=== PATIENT | female | born 1935 ===

== ENCOUNTER 2025-09-07 09:57 | Inpatient (IN) ==
--- NOTE | 2025-09-07 11:31 | Emergency Department Note ---
Impression & Plan Intractable low back pain, Hypertension, Lumbar spinal stenosis ED Provider Note NAME: DEIRDRE KNAPP AGE: 89 SEX: F : 1935 ARRIVES VIA: Ambulance INFORMANT: Patient ED PROVIDER(S): Chris Montez MD CHIEF COMPLAINT: Back pain PLAN: Disposition: Admit MEDICAL DECISION MAKING: The patient is a 89-year-old woman with a past medical history of hypertension, hyperlipidemia, diabetes, chronic back pain who presents to the emergency department via EMS accompanied by family for intractable left low back pain for which she has been following with her primary care provider and has been treated with a course of steroids which she is currently tapering but felt flare of pain over the past several days. She reports pain has been ongoing for weeks to a couple of months. She denies urinary retention or loss of bowel control. She reports she is a scheduled MRI of her back in September but due to worsening symptoms feels she cannot wait any longer. She denies fevers, chills, cough congestion, chest pain or shortness of breath. On my evaluation the patient is uncomfortable but in no acute distress, afebrile blood pressure in the 200s/90s in setting of not having taken her medications and her discomfort and vital signs otherwise stable. She appears clinically dry. She is mild lower abdominal discomfort without discrete tenderness. She has tenderness of the left paraspinal lumbar region extending distally over the PSIS. She exhibits a positive left leg straight leg raise. Reflexes within normal limits. There is no clonus. L5 intact bilaterally. EKG without overt acute ischemia. CXR negative for acute cardiopulmonary process per my personal preliminary review/interpretation. WBC, hemoglobin and platelets within normal limits. Chemistry without metabolic acidosis. Creatinine 1.6 without prior for comparison however BUN/creatinine 23 consistent with patient's clinically dry appearance. LFTs unremarkable. High- sensitivity troponin 11.9, within normal limits. Lipase is normal. UA without evidence of infection. CT of the abdomen pelvis as well as the lumbar spine were completed and demonstrates suspected left posterior lateral disc extrusion at L4-L5 which likely caused significant central canal stenosis. Additional incidental findings are noted including a 1.9 cm indeterminant enhancing lesion of the left kidney and asymmetric soft tissue density within the right breast compared to the left. Upon evaluation patient reported some initial improvement with IV Federation, IV APAP and dexamethasone. However, she reported pain was returning and felt that she could not tolerate ambulating and the patient and family agree with plan for admission for further pain control for her intractable back pain as well as MRI for further characterization of CT findings. IV morphine was ordered. [facility] for [facility]. Further management per admitting team. Triage Nursing notes reviewed and agree them. Prior/external medical records reviewed Vital Signs: reviewed Differential diagnosis: Musculoskeletal, disc herniation, fracture, metastatic disease, cord compression, discitis, sciatica, cauda equina, infection, aortic disease, renal colic, gastrointestinal, as well as other pathologies. ER treatment provided: See below. Diagnostics interpreted by me: ECG: Sinus rhythm with first-degree block, 75 bpm, LVH, no overt ST ovation or depression, QTc 422, QRS 96. Sinus rhythm, 75 bpm, no ectopy. Cardiac Monitoring: An order for continuous cardiac monitoring was placed and demonstrated Laboratory studies: See below Imaging studies: See below Consultation(s): Case was discussed with Dr. Whitt[facility], who will evaluate the patient for admission. HPI: Per MDM. ROS: See above HPI for pertinent positives & negatives. A total of 10 systems reviewed and were otherwise negative. VITALS:See Below PHYSICAL EXAMINATION: GENERAL: Awake, alert, well-appearing, in no distress, BMI 32.2. HENT: Normocephalic, atraumatic. Oropharynx with dry mucous membranes and otherwise unremarkable. EYES: Normal conjunctiva. Sclera non-icteric. NECK: Supple. No nuchal rigidity. FROM. No JVD. RESPIRATORY: Clear to auscultation. CARDIAC: Regular rate, normal rhythm. Extremities warm and well perfused. Pulses equal. ABDOMEN: Soft, non-distended. No tenderness to palpation. No rebound or guarding. No masses. MUSCULOSKELETAL: Chest examination reveals no tenderness. The back is symmetrical on inspection without obvious abnormality. There is no CVA tenderness to palpation. No joint edema. LOWER EXTREMITIES: Calves are equal size bilaterally and non-tender. No edema. No discoloration. NEURO: Normal sensorium. No sensory or motor deficits noted. SKIN: No rash or jaundice noted. Chris Montez MD Past Med/Surg History Problem List (Updated 09/07/25 @ 15:38 by Chris Montez MD) Lumbar spinal stenosis (Acute) Hypertension (Acute) Intractable low back pain (Acute) Dyslipidemia Gout Anxiety Neuropathy Diabetes mellitus Hypertension Medical History Family history of cancer Family history of diabetes mellitus Surgical History History of heart artery stent History of shoulder surgery History of carpal tunnel release History of cataract surgery Social History Smoking Status: Former smoker Feels Safe at Home: Yes Allergies Allergies Allergy/AdvReac Type Severity Reaction Status Date / Time baclofen Allergy Unknown ON Verified 09/07/25 15:12 [email or web address] MED LIST buspirone [From BuSpar] AdvReac Intermediate "DIDN'T Verified 09/07/25 15:12 FEEL WELL ON IT". fluoxetine [From Prozac] AdvReac Intermediate "DIDN'T Verified 09/07/25 15:12 FEEL WELL ON IT". metformin AdvReac Intermediate ELEVATED Verified 09/07/25 15:12 RENAL FUNCTIONS Sulfa (Sulfonamide AdvReac Mild NAUSEA/OVER Verified 09/07/25 15:12 Antibiotics) 40 YEARS AGO. Home Meds Home Medications Medication Instructions Recorded Confirmed amlodipine 2.5 mg tablet 2.5 mg PO DAILY 09/07/21 10/06/21 aspirin 81 mg tablet,delayed 81 mg PO DAILY 09/07/21 10/06/21 release atenolol 100 mg tablet 100 mg PO DAILY 09/07/21 10/06/21 cholecalciferol (vitamin D3) 25 25 mcg PO DAILY 09/07/21 10/06/21 mcg (1,000 unit) capsule citalopram 20 mg tablet (Celexa) 20 mg PO DAILY 09/07/21 10/06/21 gabapentin 300 mg capsule 300 mg PO TID 09/07/21 10/06/21 losartan 100 mg tablet 100 mg PO DAILY 09/07/21 10/06/21 omega-3 fatty acids 1,000 mg 1,000 mg PO DAILY 09/07/21 10/06/21 capsule (Fish Oil Concentrate) rosuvastatin 20 mg tablet 20 mg PO DAILY 09/07/21 10/06/21 allopurinol 300 mg tablet 200 mg PO DAILY 10/06/21 10/06/21 glipizide 10 mg tablet 5 mg PO DAILY 10/06/21 10/06/21 semaglutide 0.25 mg or 0.5 mg (2 mg subcut ONCE 10/06/21 10/06/21 mg/1.5 mL) subcutaneous pen injector (Ozempic) Previous Rx's Medication Instructions Recorded fluorouracil 5 % topical cream 1 applic topical BID 3 weeks #40 10/06/21 grams Results & Data (ED) Vital Signs Vital Signs - 24 hr 09/07/25 10:03 09/07/25 10:16 09/07/25 11:00 Temperature 36.5 C Temperature Source Oral Pulse Rate 102 H 85 80 Pulse Rate from SpO2 Sensor Respiratory Rate 16 20 Respiratory Effort / Characteristics Non-Labored Spontaneous Respiratory Depth Normal Respiratory Pattern Regular Blood Pressure 193/91 H 195/91 H Blood Pressure Mean 125 149 Pulse Oximetry 97 98 Oxygen Delivery Method Room Air Room Air Sepsis Recent Fever Within 48 Hours No Sepsis New/Unexplained Change in Mental Status No Sepsis Action Taken by Nursing No Action Required 09/07/25 11:00 09/07/25 11:12 09/07/25 11:30 Temperature Temperature Source Pulse Rate 81 81 82 Pulse Rate from SpO2 Sensor 80 Respiratory Rate 17 15 21 Respiratory Effort / Characteristics Respiratory Depth Respiratory Pattern Blood Pressure 195/91 H 166/119 H Blood Pressure Mean 125 134 Pulse Oximetry 96 96 96 Oxygen Delivery Method Room Air Room Air Sepsis Recent Fever Within 48 Hours Sepsis New/Unexplained Change in Mental Status Sepsis Action Taken by Nursing 09/07/25 12:00 09/07/25 12:30 09/07/25 12:51 Temperature Temperature Source Pulse Rate 74 78 78 Pulse Rate from SpO2 Sensor 74 78 78 Respiratory Rate 13 19 18 Respiratory Effort / Characteristics Respiratory Depth Respiratory Pattern Blood Pressure 180/84 H 179/107 H 202/88 H Blood Pressure Mean 116 131 126 Pulse Oximetry 93 94 93 Oxygen Delivery Method Room Air Room Air Room Air Sepsis Recent Fever Within 48 Hours Sepsis New/Unexplained Change in Mental Status Sepsis Action Taken by Nursing 09/07/25 12:54 09/07/25 13:00 09/07/25 13:09 Temperature Temperature Source Pulse Rate 82 80 79 Pulse Rate from SpO2 Sensor 82 79 80 Respiratory Rate 20 23 17 Respiratory Effort / Characteristics Respiratory Depth Respiratory Pattern Blood Pressure 205/87 H 201/87 H 204/90 H Blood Pressure Mean 126 125 128 Pulse Oximetry 97 94 95 Oxygen Delivery Method Room Air Room Air Room Air Sepsis Recent Fever Within 48 Hours Sepsis New/Unexplained Change in Mental Status Sepsis Action Taken by Nursing 09/07/25 14:39 Temperature Temperature Source Pulse Rate 83 Pulse Rate from SpO2 Sensor Respiratory Rate Respiratory Effort / Characteristics Respiratory Depth Respiratory Pattern Blood Pressure Blood Pressure Mean Pulse Oximetry Oxygen Delivery Method Sepsis Recent Fever Within 48 Hours Sepsis New/Unexplained Change in Mental Status Sepsis Action Taken by Nursing Laboratory Data Attestation: I reviewed the patient's lab results. 09/07/25 10:09 09/07/25 10:09 Lab Results 09/07/25 09/07/25 Range/Units 10:09 13:27 WBC 8.52 (4.8-10.8) K/ul RBC 3.77 L (4.20-5.40) M/uL Hgb 12.0 (12.0-16.0) g/dL Hct 36.1 L (37.0-47.0) % MCV 95.8 (80.0-100.0) fL MCH 31.8 (25.0-34.0) pg MCHC 33.2 (32.0-36.0) g/dL RDW Std Deviation 47.9 H (36.4-46.3) fL RDW Coeff of Adrianne 13.6 (11.5-14.5) % Plt Count 236 (130-400) K/uL MPV 10.2 (9.4-12.4) fL Immature Gran % (Auto) 0.2 % Neut % (Auto) 57.9 % Lymph % (Auto) 33.9 % [place] % (Auto) 5.9 % Eos % (Auto) 1.9 % Baso % (Auto) 0.2 % Neut # (Auto) 4.93 (1.40-6.50) K/uL Lymph # (Auto) 2.89 (1.20-3.40) K/uL [place] # (Auto) 0.50 (0.11-0.59) K/uL Eos # (Auto) 0.16 (0.00-0.50) K/uL Baso # (Auto) 0.02 (0.00-0.20) K/uL Immature Gran # (Auto) 0.02 (0.01-0.20) K/uL PT 9.8 (9.0-12.0) Seconds INR 0.9 (0.9-1.1) Sodium 139 (136-145) mmol/L Potassium 4.0 (3.5-5.1) mmol/L Chloride 102 (98-107) mmol/L Carbon Dioxide 29 (21-32) mmol/L Anion Gap 8 (3-11) BUN 38 H (6-23) mg/dl Creatinine 1.64 H (0.6-1.2) mg/dl Est Cr Clr Drug Dosing 24.5 ml/min eGFR 29.74 BUN/Creatinine Ratio 23.2 H (10-20) Glucose 133 H (70-99(Fasting)) mg/dl Calcium 9.5 (8.6-10.3) mg/dl Phosphorus 3.4 (2.5-4.9) mg/dl Magnesium 2.2 (1.7-2.4) mg/dl Total Bilirubin 0.4 (0.2-1.0) mg/dl AST 17 (13-39) U/L ALT 11 (7-52) U/L Alkaline Phosphatase 63 (34-104) U/L Troponin I High Sens 11.9 (0-14) pg/ml Total Protein 6.9 (6.0-8.3) gm/dl Albumin 4.1 (3.4-5.0) gm/dl Globulin 2.8 (2.5-4.0) gm/dl Albumin/Globulin Ratio 1.5 (0.9-2) Lipase 74 (11-82) U/L Urine Color Yellow Urine Appearance Clear (Clear) Urine pH 7.5 (4.5-7.5) Ur Specific [place] 1.021 (1.000-1.030) Urine Protein 2+ H (Negative) Urine Glucose (UA) Negative (Negative) Urine Ketones Negative (Negative) Urine Blood Negative (Negative) Urine Nitrite Negative (Negative) Urine Bilirubin Negative (Negative) Urine Urobilinogen Negative (Negative) Ur Leukocyte Esterase Negative (Negative) Urine WBC (Auto) 0-5 (0-5) /hpf Urine RBC (Auto) 0-2 (0-2) /hpf U Hyaline Cast (Auto) 0-2 (0-2) /lpf U Epithel Cells (Auto) 0-2 (0-2) /hpf Urine Bacteria (Auto) None Seen (None Seen) Urine Comment Administered Medications Discontinued Medications Dexamethasone Sodium Phosphate (DexamethasonePf 10 Mg/Ml Vial) 10 mg IV NOW ONE Stop: 09/07/25 11:22 Last Admin: 09/07/25 11:37 Dose: 10 mg Documented By: MICHELLE Sodium Chloride (Nss) 500 mls @ 999 mls/hr IV .Q31M ONE Stop: 09/07/25 11:51 Last Infusion: 09/07/25 13:42 Dose: Infused Documented By: Admin: 09/07/25 11:59 Dose: 999 mls/hr Documented By: MICHELLE Acetaminophen (Ofirmev) 1,000 mg in 100 mls @ 400 mls/hr IV NOW STA Stop: 09/07/25 11:35 Last Infusion: 09/07/25 12:01 Dose: Infused Documented By: Admin: 09/07/25 11:37 Dose: 400 mls/hr Documented By: MICHELLE Ioversol (Optiray 320 100ml) 94 ml IV ONCE ONE Stop: 09/07/25 12:44 Last Admin: 09/07/25 12:43 Dose: 94 ml Documented By: ANNIE Ketorolac Tromethamine (Ketorolac Tromethamine 15 Mg/Ml Vial) 15 mg IV NOW STA Stop: 09/07/25 11:22 Last Admin: 09/07/25 11:37 Dose: 15 mg Documented By: MICHELLE Morphine Sulfate (Morphine Sulfate 2 Mg/Ml Carp) 2 mg IV NOW STA Stop: 09/07/25 15:07 Last Admin: 09/07/25 15:20 Dose: 2 mg Documented By: MICHELLE Imaging Data Radiologist's Impression: Abdomen/Pelvis CT 09/07/25 11:19 CT SCAN OF THE ABDOMEN AND PELVIS WITH IV CONTRAST; CT SCAN OF THE LUMBAR SPINE WITH IV CONTRAST CLINICAL HISTORY: Generalized abdominal pain. Low back pain. COMPARISON STUDY: No priors TECHNIQUE: Following the IV administration of 94 cc of Optiray 320, CT scan of the abdomen and pelvis is performed from the lung bases to the proximal femora. Additionally, CT scan of the lumbar spine is performed from the lower thoracic spine to sacrum. Images for both examinations are reviewed in the axial, sagittal, and coronal planes. IV contrast was administered without complication. A dose lowering technique was utilized adhering to the principles of ALARA. CT DOSE: 1205.13 mGy.cm FINDINGS: Lung bases: The heart is normal in size and without pericardial effusion. There is bibasilar scarring/atelectasis. No airspace consolidation typical for pneumonia or pleural effusion is identified. A small hiatal hernia is noted. There is severe asymmetric soft tissue density within the right breast as compared to the left. Liver: The contrast-enhanced liver is normal in size, contour, and attenuation. There is no intrahepatic biliary ductal dilatation. The hepatic veins and portal veins are patent. Gallbladder: Small gallstones are suspected. The gallbladder is distended but otherwise normal as imaged. Spleen: Normal in size and attenuation. Pancreas: Unremarkable. Adrenal glands: Unremarkable. Kidneys: The contrast enhanced kidneys are normal in size and without hydronephrosis. The kidneys enhance symmetrically. There is a 1.9 cm indeterminant and possibly enhancing lesion is seen in the lower pole of left kidney on image #129. Scattered renal cysts measure up to 2.4 cm. Additional subcentimeter cortical hypodensities also likely represent cysts but are too small for definitive characterization. Abdominal vasculature: There is moderate to advanced atherosclerotic calcification and mild ectasia of the abdominal aorta. Bowel: There is advanced colonic diverticulosis without CT evidence of acute diverticulitis. No bowel obstruction is seen. Zeiu-sy-vjhxafih fecal retention is noted throughout the colon. A segment of small bowel is contained within an umbilical hernia. The appendix is normal as visualized. Peritoneum: There is no intraperitoneal free air or abdominal ascites. There is a fat and bowel containing umbilical hernia. There is also a fat-containing supraumbilical hernia seen on image #179. Lymphadenopathy: None. Pelvic viscera: The bladder is normal as visualized. The uterus is surgically absent. No adnexal lesion is seen. Skeletal structures: The skeletal structures are osteopenic. See below for discussion of lumbar spine. No lytic or blastic lesions are seen. Degenerative sclerosis is seen within the sacroiliac joints and pubic symphysis. LUMBAR SPINE: Vertebral body height is maintained throughout the lumbar spine. There is minimal anterolisthesis at L4-L5. Alignment is otherwise preserved. Anterior and lateral marginal osteophytes are seen throughout. There is no evidence of fracture or malalignment. The transverse and spinous processes are intact. There is no spondylolysis. There is severe disc space narrowing and partial bony fusion at L2-L3. Severe disc space narrowing is seen at L1-L2 with endplate sclerosis. Moderate to severe disc space narrowing is noted at L3-L4. Posterior disc osteophyte complexes are noted at all lumbar levels. There is at least mild central canal stenosis at L2-L3. A left posterolateral disc extrusion is suggested at L4-L5. This likely cause significant central canal stenosis. There is also bilateral neural foraminal narrowing at L4-L5. The paraspinous soft tissues are within normal limits. IMPRESSION: 1. No acute infectious or inflammatory findings are identified in the abdomen or pelvis. 2. Advanced colonic diverticulosis without CT evidence of acute diverticulitis. 3. There is a 1.9 cm indeterminate and possibly enhancing lesion in the lower pole of the left kidney. Follow-up with urology is recommended, as a renal neoplasm is to be excluded. 4. An umbilical hernia contains a tiny nonobstructed segment of small bowel. 5. No acute bony abnormality is seen involving the lumbar spine. 6. Suspect a left posterolateral disc extrusion at L4-L5 which likely causes significant central canal stenosis. 7. There is significantly asymmetric soft tissue density within the right breast as compared to the left. This is not well evaluated by CT. Nonemergent mammography is recommended for further evaluation. 8. Additional findings as above. ACT 112: Positive. There are findings on this exam that require communication between the performing entity and the patient following Patient Test Result Information Act ([place] Act 112) guidelines. Electronically signed by: Michael Rock M.D. 09/07/2025 1:32 PM Chest X-Ray 09/07/25 11:19 SINGLE VIEW CHEST CLINICAL HISTORY: Back pain FINDINGS: 2 AP, portable, upright chest radiographs are obtained. No prior studies are available for comparison at the time of dictation. The heart is enlarged noting atherosclerotic calcification of the thoracic aorta. The pulmonary vasculature is noncongested. There is bibasilar scarring/atelectasis. No airspace consolidation or large pleural effusion is identified. No pneumothorax is seen. The skeletal structures are osteopenic. The bony thorax is grossly intact. Arthritic change is seen in the shoulders. IMPRESSION: Cardiomegaly with no acute cardiopulmonary abnormality identified. ACT 112: Negative or not required by law. Electronically signed by: Michael Rock M.D. 09/07/2025 11:[address] 09/07/25 11:19 CT SCAN OF THE ABDOMEN AND PELVIS WITH IV CONTRAST; CT SCAN OF THE LUMBAR SPINE WITH IV CONTRAST CLINICAL HISTORY: Generalized abdominal pain. Low back pain. COMPARISON STUDY: No priors TECHNIQUE: Following the IV administration of 94 cc of Optiray 320, CT scan of the abdomen and pelvis is performed from the lung bases to the proximal femora. Additionally, CT scan of the lumbar spine is performed from the lower thoracic spine to sacrum. Images for both examinations are reviewed in the axial, sagittal, and coronal planes. IV contrast was administered without complication. A dose lowering technique was utilized adhering to the principles of ALARA. CT DOSE: 1205.13 mGy.cm FINDINGS: Lung bases: The heart is normal in size and without pericardial effusion. There is bibasilar scarring/atelectasis. No airspace consolidation typical for pneumonia or pleural effusion is identified. A small hiatal hernia is noted. There is severe asymmetric soft tissue density within the right breast as compared to the left. Liver: The contrast-enhanced liver is normal in size, contour, and attenuation. There is no intrahepatic biliary ductal dilatation. The hepatic veins and portal veins are patent. Gallbladder: Small gallstones are suspected. The gallbladder is distended but otherwise normal as imaged. Spleen: Normal in size and attenuation. Pancreas: Unremarkable. Adrenal glands: Unremarkable. Kidneys: The contrast enhanced kidneys are normal in size and without hydronephrosis. The kidneys enhance symmetrically. There is a 1.9 cm indeterminant and possibly enhancing lesion is seen in the lower pole of left kidney on image #129. Scattered renal cysts measure up to 2.4 cm. Additional subcentimeter cortical hypodensities also likely represent cysts but are too small for definitive characterization. Abdominal vasculature: There is moderate to advanced atherosclerotic calcification and mild ectasia of the abdominal aorta. Bowel: There is advanced colonic diverticulosis without CT evidence of acute diverticulitis. No bowel obstruction is seen. Iuct-yj-avenfybz fecal retention is noted throughout the colon. A segment of small bowel is contained within an umbilical hernia. The appendix is normal as visualized. Peritoneum: There is no intraperitoneal free air or abdominal ascites. There is a fat and bowel containing umbilical hernia. There is also a fat-containing supraumbilical hernia seen on image #179. Lymphadenopathy: None. Pelvic viscera: The bladder is normal as visualized. The uterus is surgically absent. No adnexal lesion is seen. Skeletal structures: The skeletal structures are osteopenic. See below for discussion of lumbar spine. No lytic or blastic lesions are seen. Degenerative sclerosis is seen within the sacroiliac joints and pubic symphysis. LUMBAR SPINE: Vertebral body height is maintained throughout the lumbar spine. There is minimal anterolisthesis at L4-L5. Alignment is otherwise preserved. Anterior and lateral marginal osteophytes are seen throughout. There is no evidence of fracture or malalignment. The transverse and spinous processes are intact. There is no spondylolysis. There is severe disc space narrowing and partial bony fusion at L2-L3. Severe disc space narrowing is seen at L1-L2 with endplate sclerosis. Moderate to severe disc space narrowing is noted at L3-L4. Posterior disc osteophyte complexes are noted at all lumbar levels. There is at least mild central canal stenosis at L2-L3. A left posterolateral disc extrusion is suggested at L4-L5. This likely cause significant central canal stenosis. There is also bilateral neural foraminal narrowing at L4-L5. The paraspinous soft tissues are within normal limits. IMPRESSION: 1. No acute infectious or inflammatory findings are identified in the abdomen or pelvis. 2. Advanced colonic diverticulosis without CT evidence of acute diverticulitis. 3. There is a 1.9 cm indeterminate and possibly enhancing lesion in the lower pole of the left kidney. Follow-up with urology is recommended, as a renal neoplasm is to be excluded. 4. An umbilical hernia contains a tiny nonobstructed segment of small bowel. 5. No acute bony abnormality is seen involving the lumbar spine. 6. Suspect a left posterolateral disc extrusion at L4-L5 which likely causes significant central canal stenosis. 7. There is significantly asymmetric soft tissue density within the right breast as compared to the left. This is not well evaluated by CT. Nonemergent mammography is recommended for further evaluation. 8. Additional findings as above. ACT 112: Positive. There are findings on this exam that require communication between the performing entity and the patient following Patient Test Result Information Act ([place] Act 112) guidelines. Electronically signed by: Michael Rock M.D. 09/07/2025 1:32 PM Discharge Plan Visit Data Chief Complaint: Back Injury/Pain Stated Complaint: [facility] ED Provider: Chris Montez Discharge Problem: Intractable low back pain, Hypertension, Lumbar spinal stenosis Patient Disposition: Admitted As Inpatient Condition: Fair Forms Stand Alone Forms: My [facility] Prescriptions Prescriptions: No Action aspirin 81 mg tablet,delayed release (DR/EC) 81 mg PO DAILY losartan 100 mg tablet 100 mg PO DAILY citalopram [Celexa] 20 mg tablet 20 mg PO DAILY cholecalciferol (vitamin D3) 25 mcg (1,000 unit) capsule 25 mcg PO DAILY prednisone 10 mg tablet 10 mg PO DIRECTED Rx Instructions: STARTED 09/01/25--PER PT "09/07/25-1ST DAYS OF 20 MG DAILY X 2 DAYS, THEN 10 MG X 2 DAYS, THEN COURSE FINISHED". omega-3 fatty acids 1,000 mg Capsule 1,000 mg PO DAILY gabapentin 400 mg capsule 400 mg PO QID cyanocobalamin (vitamin B-12) [Vitamin B-12] 1,000 mcg Tablet 1,000 mcg PO DAILY amlodipine 5 mg tablet 5 mg PO QPM allopurinol 100 mg tablet 100 mg PO QAM acetaminophen [Tylenol Extra Strength] 500 mg Tablet 1,000 mg PO Q6H PRN (Reason: PAIN/FEVER) nitroglycerin [Nitrostat] 0.4 mg Tablet, Sublingual 0.4 mg sublingual DIRECTED PRN (Reason: Chest Pain) Rx Instructions: EVERY 5 MINUTES NEEDED FOR CHEST PAIN UP TO 3 DOSES IN 15 MINUTES. docusate sodium 100 mg Capsule 100 mg PO HS omeprazole 20 mg capsule,delayed release(DR/EC) 20 mg PO QAM ammonium lactate 12 % cream 1 applic TOPICAL DAILY Rx Instructions: APPLY TO AFFECTED AREA Refresh Classic (PF) 1.4-0.6 % Dropperette 1 drp OPB DIRECTED PRN (Reason: Dry Eyes) rosuvastatin 5 mg tablet 5 mg PO QAM melatonin 3 mg Tablet,Disintegrating 3 mg PO HS Ozempic 1 mg/dose (4 mg/3 mL) Pen Injector 1 mg SUBCUT WK Rx Instructions: SUNDAYS Referrals Referrals: Taina Queen DO [Primary Care Provider] - Discharge Problem: Hypertension Qualifiers: Hypertension type: unspecified Qualified Code(s): I10 - Essential (primary) hypertension Lumbar spinal stenosis Qualifiers: Neurogenic claudication status: unspecified Qualified Code(s): M48.061 - Spinal stenosis, lumbar region without neurogenic claudication
[2025-09-07 11:34] LABS: Hematocrit (blood only) 36.1 % (37.0-47.0); Hemoglobin 12.0 g/dL (12.0-16.0); Immature Granulocytes # (auto) 0.02 K/uL (0.01-0.20); Immature Granulocytes % (auto) 0.2 %; Mean Corpuscular Hemoglobin 31.8 pg (25.0-34.0); Mean Corpuscular Volume 95.8 fL (80.0-100.0); Platelet Count 236 K/uL (130-400); RDW Standard Deviation 47.9 fL (36.4-46.3); Red Blood Count 3.77 M/uL (4.20-5.40); White Blood Count 8.52 K/ul (4.8-10.8)
[2025-09-07] MEDS: ACETAMINOPHEN 1,000 MG/100 ML VIAL IV STA (11:37)
[2025-09-07] MEDS: KETOROLAC TROMETHAMINE 15 MG/ML VIAL IV STA (11:37)
[2025-09-07] MEDS: dexAMETHasone**PF** 10 MG/ML VIAL IV ONE (11:37)
[2025-09-07 11:43] LABS: Alanine Aminotransferase 11.0 U/L (7-52); Albumin Globulin Ratio 1.5 (0.9-2); Albumin Level 4.1 gm/dl (3.4-5.0); Alkaline Phosphatase 63.0 U/L (34-104); Anion Gap 8.0 (3-11); Bilirubin,Total 0.4 mg/dl (0.2-1.0); Blood Urea Nitrogen 38.0 mg/dl (6-23); Calcium 9.5 mg/dl (8.6-10.3); Carbon Dioxide 29.0 mmol/L (21-32); Chloride 102.0 mmol/L (98-107); Creatinine Clr Calc Pharmacy 24.5 ml/min; Globulin 2.8 gm/dl (2.5-4.0); Glucose 133.0 mg/dl (70-99(Fasting)); Lipase 74.0 U/L (11-82); Magnesium 2.2 mg/dl (1.7-2.4); Potassium 4.0 mmol/L (3.5-5.1); Sodium 139.0 mmol/L (136-145); Total Protein 6.9 gm/dl (6.0-8.3)
--- NOTE | 2025-09-07 11:49 | XRay Report ---
SINGLE VIEW CHEST CLINICAL HISTORY: Back pain FINDINGS: 2 AP, portable, upright chest radiographs are obtained. No prior studies are available for comparison at the time of dictation. The heart is enlarged noting atherosclerotic calcification of th e thoracic aorta. The pulmonary vasculature is noncongested. There is bibasilar scarring/atelectasis. No airspace consolidation or large pleural effusion is identified. No pneumothorax is seen. The skel etal structures are osteopenic. The bony thorax is grossly intact. Arthritic change is seen in the sh oulders. IMPRESSION: Cardiomegaly with no acute cardiopulmonary abnormality identified. ACT 112: Negative or not required by law. Electronically signed by: Michael Rock M.D. 09/07/2025 11:47 AM
[2025-09-07] MEDS: SODIUM CHLORIDE 0.9% 500 ML IV ONE (11:59)
[2025-09-07 12:10] LABS: INR 0.9 (0.9-1.1); Prothrombin Time 9.8 Seconds (9.0-12.0)
[2025-09-07] MEDS: OPTIRAY 320 100ml IV ONE (12:43)
--- NOTE | 2025-09-07 13:34 | CT Scan Report ---
CT SCAN OF THE ABDOMEN AND PELVIS WITH IV CONTRAST; CT SCAN OF THE LUMBAR SPINE WITH IV CONTRAST CLINICAL HISTORY: Generalized abdominal pain. Low back pain. COMPARISON STUDY: No priors TECHNIQUE: Following the IV administration of 94 cc of Optiray 320, CT scan of the abdomen and pelvi s is performed from the lung bases to the proximal femora. Additionally, CT scan of the lumbar spine is performed from the lower thoracic spine to sacrum. Images for both examinations are reviewed in th e axial, sagittal, and coronal planes. IV contrast was administered without complication. A dose lowe ring technique was utilized adhering to the principles of ALARA. CT DOSE: 1205.13 mGy.cm FINDINGS: Lung bases: The heart is normal in size and without pericardial effusion. There is bibasilar scarring /atelectasis. No airspace consolidation typical for pneumonia or pleural effusion is identified. A sm all hiatal hernia is noted. There is severe asymmetric soft tissue density within the right breast as compared to the left. Liver: The contrast-enhanced liver is normal in size, contour, and attenuation. There is no intrahepa tic biliary ductal dilatation. The hepatic veins and portal veins are patent. Gallbladder: Small gallstones are suspected. The gallbladder is distended but otherwise normal as derian ged. Spleen: Normal in size and attenuation. Pancreas: Unremarkable. Adrenal glands: Unremarkable. Kidneys: The contrast enhanced kidneys are normal in size and without hydronephrosis. The kidneys enh ance symmetrically. There is a 1.9 cm indeterminant and possibly enhancing lesion is seen in the lowe r pole of left kidney on image #129. Scattered renal cysts measure up to 2.4 cm. Additional subcentim eter cortical hypodensities also likely represent cysts but are too small for definitive characteriza tion. Abdominal vasculature: There is moderate to advanced atherosclerotic calcification and mild ectasia o f the abdominal aorta. Bowel: There is advanced colonic diverticulosis without CT evidence of acute diverticulitis. No bowel obstruction is seen. [id number] fecal retention is noted throughout the colon. A segment of sm all bowel is contained within an umbilical hernia. The appendix is normal as visualized. Peritoneum: There is no intraperitoneal free air or abdominal ascites. There is a fat and bowel conta ining umbilical hernia. There is also a fat-containing supraumbilical hernia seen on image #179. Lymphadenopathy: None. Pelvic viscera: The bladder is normal as visualized. The uterus is surgically absent. No adnexal lesi on is seen. Skeletal structures: The skeletal structures are osteopenic. See below for discussion of lumbar spine . No lytic or blastic lesions are seen. Degenerative sclerosis is seen within the sacroiliac joints a nd pubic symphysis. LUMBAR SPINE: Vertebral body height is maintained throughout the lumbar spine. There is minimal anter olisthesis at L4-L5. Alignment is otherwise preserved. Anterior and lateral marginal osteophytes are seen throughout. There is no evidence of fracture or malalignment. The transverse and spinous process es are intact. There is no spondylolysis. There is severe disc space narrowing and partial bony fusio n at L2-L3. Severe disc space narrowing is seen at L1-L2 with endplate sclerosis. Moderate to severe disc space narrowing is noted at L3-L4. Posterior disc osteophyte complexes are noted at all lumbar l evels. There is at least mild central canal stenosis at L2-L3. A left posterolateral disc extrusion i s suggested at L4-L5. This likely cause significant central canal stenosis. There is also bilateral n eural foraminal narrowing at L4-L5. The paraspinous soft tissues are within normal limits. IMPRESSION: 1. No acute infectious or inflammatory findings are identified in the abdomen or pelvis. 2. Advanced colonic diverticulosis without CT evidence of acute diverticulitis. 3. There is a 1.9 cm indeterminate and possibly enhancing lesion in the lower pole of the left kidney . Follow-up with urology is recommended, as a renal neoplasm is to be excluded. 4. An umbilical hernia contains a tiny nonobstructed segment of small bowel. 5. No acute bony abnormality is seen involving the lumbar spine. 6. Suspect a left posterolateral disc extrusion at L4-L5 which likely causes significant central chan l stenosis. 7. There is significantly asymmetric soft tissue density within the right breast as compared to the l eft. This is not well evaluated by CT. Nonemergent mammography is recommended for further evaluation. 8. Additional findings as above. ACT 112: Positive. There are findings on this exam that require communication between the performing entity and the patient following Patient Test Result Information Act ([place] Act 112) guidelines. Electronically signed by: Michael Rock M.D. 09/07/2025 1:32 PM
[2025-09-07 13:54] LABS: Appearance Urine Clear (Clear); Bacteria Urine Automated None Seen (None Seen); Cast Urine Automated 0-2 /lpf (0-2); Epithelial Cell Urine Auto 0-2 /hpf (0-2); Glucose Urine UA Negative (Negative); RBC Urine Automated 0-2 /hpf (0-2); WBC Urine Automated 0-5 /hpf (0-5)
[2025-09-07] MEDS: MoRPHine SULFATE 2 MG/ML CARP IV STA (15:20)
[2025-09-07] MEDS: LABETALOL HCL IV 5 MG/ML 20ML IV STA ×2 (16:11→17:33)
[2025-09-07] MEDS: LOSARTAN POTASSIUM 50 MG TAB PO STA (16:22)
--- NOTE | 2025-09-07 16:32 | History & Physical Report ---
Date of Service September 07, 2025 Assessment & Plan (1) Intractable low back pain: Plan: 89-year-old female with past medical history significant for type 2 diabetes, dyslipidemia, gout, hypercholesterolemia, uncomplicated asthma, hypertension, CAD status post stent, GERD, CKD stage IV, degenerative disc disease, anemia of chronic renal failure, history of squamous cell carcinoma, depression with anxiety, generalized anxiety disorder comes because of severe back pain. Patient states having back pain for several months. But last 1 week it has got progressively worsened. It is in the lower back radiating to the left leg up to the foot. She is currently using walker to ambulate. She always has urinary incontinence and uses diapers. No bowel incontinence. Uses stool softeners. Denies any fevers. No abdominal pain. No hematuria. No blood in the stools. No chest pain or shortness of breath. No cough. No headache currently. No runny nose or sore throat. Appetite is okay. Recently her PCP started prednisone and initially seem to help but the pain got worse again which prompted her to come to the ER today. There is a plan also for MRI in near future. Blood pressure is running high in the ER. Patient states she did not take her morning medications. Daughter is in the room. Patient lives with her son. Intractable low back pain Left posterolateral disc extrusion at L4-L5 on CT scan Will get MRI scan Pain control Consult orthospine in a.m. Hypertensive urgency Patient says she did not take her morning medication Patient on losartan 100 mg in a.m. and amlodipine 5 mg every afternoon Will give losartan 100 mg now and also IV labetalol IV labetalol as needed Will monitor in med/telemetry CKD stage IV Presented with creatinine of 1.6 Seems around baseline Will monitor Diabetes Sliding scale Hold Ozempic Will monitor Gout On allopurinol History of CAD status post stent On aspirin and statin GERD Omeprazole Hyperlipidemia On statin Depression and anxiety Generalized anxiety disorder On citalopram DVT prophylaxis Heparin subcu Disposition Admit/telemetry CODE STATUS full code if there is a chance of recovery as per my discussion with the patient. History of Present Illness Chief Complaint: Severe back pain Primary Care Provider: Taina Queen DO 89-year-old female with past medical history significant for type 2 diabetes, dyslipidemia, gout, hypercholesterolemia, uncomplicated asthma, hypertension, CAD status post stent, GERD, CKD stage IV, degenerative disc disease, anemia of chronic renal failure, history of squamous cell carcinoma, depression with anxiety, generalized anxiety disorder comes because of severe back pain. Patient states having back pain for several months. But last 1 week it has got progressively worsened. It is in the lower back radiating to the left leg up to the foot. She is currently using walker to ambulate. She always has urinary incontinence and uses diapers. No bowel incontinence. Uses stool softeners. Denies any fevers. No abdominal pain. No hematuria. No blood in the stools. No chest pain or shortness of breath. No cough. No headache currently. No runny nose or sore throat. Appetite is okay. Recently her PCP started prednisone and initially seem to help but the pain got worse again which prompted her to come to the ER today. There is a plan also for MRI in near future. Blood pressure is running high in the ER. Patient states she did not take her morning medications. Daughter is in the room. Patient lives with her son. Past medical history. As mentioned above. Past surgical history. Bilateral carpal tunnel surgery. Exploratory laparotomy. Left breast punch biopsy. Injection lumbosacral spine. Injection of the cervical spine. Cardiac cath BONILLA to LAD. Lasering of secondary cataract. Bilateral blepharoplasty. Punch biopsy of the skin. Bilateral cataract extraction. Right shoulder cuff avulsion repair. Total abdominal hysterectomy with removal of tubes. Social history. . Quit smoking 1975. Smoked 1.5 packs a day for 20 years. Alcohol occasional glass of wine during holidays. No drug use. Allergies Allergy/AdvReac Type Severity Reaction Status Date / Time baclofen Allergy Unknown ON Verified 09/07/25 15:[address] MED LIST buspirone [From BuSpar] AdvReac Intermediate "DIDN'T Verified 09/07/25 15:12 FEEL WELL ON IT". fluoxetine [From Prozac] AdvReac Intermediate "DIDN'T Verified 09/07/25 15:12 FEEL WELL ON IT". metformin AdvReac Intermediate ELEVATED Verified 09/07/25 15:12 RENAL FUNCTIONS Sulfa (Sulfonamide AdvReac Mild NAUSEA/OVER Verified 09/07/25 15:12 Antibiotics) 40 YEARS AGO. Home Medications Medication Instructions Recorded Confirmed Type aspirin 81 mg tablet,delayed 81 mg PO DAILY 09/07/21 09/07/25 History release cholecalciferol (vitamin D3) 25 25 mcg PO DAILY 09/07/21 09/07/25 History mcg (1,000 unit) capsule citalopram 20 mg tablet (Celexa) 20 mg PO DAILY 09/07/21 09/07/25 History losartan 100 mg tablet 100 mg PO DAILY 09/07/21 09/07/25 History acetaminophen 500 mg tablet 1,000 mg PO Q6H PRN PAIN/FEVER 09/07/25 09/07/25 History (Tylenol Extra Strength) allopurinol 100 mg tablet 100 mg PO QAM 09/07/25 09/07/25 History amlodipine 5 mg tablet 5 mg PO QPM 09/07/25 09/07/25 History ammonium lactate 12 % topical cream 1 applic topical DAILY 09/07/25 09/07/25 History cyanocobalamin (vitamin B-12) 1,000 mcg PO DAILY 09/07/25 09/07/25 History 1,000 mcg tablet (Vitamin B-12) docusate sodium 100 mg capsule 100 mg PO HS 09/07/25 09/07/25 History gabapentin 400 mg capsule 400 mg PO QID 09/07/25 09/07/25 History melatonin 3 mg disintegrating 3 mg PO HS 09/07/25 09/07/25 History tablet nitroglycerin 0.4 mg sublingual 0.4 mg sublingual DIRECTED PRN 09/07/25 09/07/25 History tablet (Nitrostat) Chest Pain omega-3 fatty acids 1,000 mg 1,000 mg PO DAILY 09/07/25 09/07/25 History capsule omeprazole 20 mg capsule,delayed 20 mg PO QAM 09/07/25 09/07/25 History release polyvinyl alcohol-povidone (PF) 1 drp OPB DIRECTED PRN Dry Eyes 09/07/25 09/07/25 History 1.4 %-0.6 % eye drops in a dropperette (Refresh Classic (PF)) prednisone 10 mg tablet 10 mg PO DIRECTED 09/07/25 09/07/25 History rosuvastatin 5 mg tablet 5 mg PO QAM 09/07/25 09/07/25 History semaglutide 1 mg/dose (4 mg/3 mL) 1 mg subcut WK 09/07/25 09/07/25 History subcutaneous pen injector (Ozempic) Past Med/Surg History Problem List (Updated 09/07/25 @ 15:38 by Chris Montez MD) Lumbar spinal stenosis (Acute) Hypertension (Acute) Intractable low back pain (Acute) Dyslipidemia Gout Anxiety Neuropathy Diabetes mellitus Hypertension Medical History Family history of cancer Family history of diabetes mellitus Surgical History History of heart artery stent History of shoulder surgery History of carpal tunnel release History of cataract surgery Social History Smoking Status: Former smoker Feels Safe at Home: Yes Review of Systems Review of Systems: All systems reviewed & are unremarkable except as noted in HPI & below Physical Exam Physical Exam: General- Not in distress Head- atraumatic Eyes- PERRL. ENT- oropharynx clear Neck- supple, no JVD. Lungs- clear to auscultation no wheezing or crackles Heart- regular rhythm; no murmur, no gallop. Abdomen- normal bowel sounds, soft, nontender, no distension Extremities- no pretibial edema, no erythema Neuro- alert, oriented PERRL, no facial palsy; no dysarthria; moves extremities Musculoskeletal Left leg straight leg test positive. Results & Data Results & Data Vital Signs (Past 12 Hours) Vital Signs Temp Pulse Resp BP Pulse Ox O2 Del Method 09/07/25 16:11 85 203/97 H 09/07/25 15:21 87 13 213/101 H 97 Room Air 09/07/25 14:39 83 09/07/25 14:00 82 13 203/94 H 95 Room Air 09/07/25 13:30 82 16 194/92 H 97 Room Air 09/07/25 13:09 79 17 204/90 H 95 Room Air 09/07/25 13:00 80 23 201/87 H 94 Room Air 09/07/25 12:54 82 20 205/87 H 97 Room Air 09/07/25 12:51 78 18 202/88 H 93 Room Air 09/07/25 12:30 78 19 179/107 H 94 Room Air 09/07/25 12:00 74 13 180/84 H 93 Room Air 09/07/25 11:30 82 21 166/119 H 96 Room Air 09/07/25 11:12 81 15 195/91 H 96 Room Air 09/07/25 11:00 81 17 96 09/07/25 11:00 80 20 195/91 H 98 Room Air 09/07/25 10:16 85 09/07/25 10:03 36.5 C 102 H 16 193/91 H 97 Room Air Diagnostic Findings Laboratory Results WBC 8.52 K/ul (4.8-10.8) 09/07/25 10:09 RBC 3.77 M/uL (4.20-5.40) L 09/07/25 10:09 Hgb 12.0 g/dL (12.0-16.0) 09/07/25 10:09 Hct 36.1 % (37.0-47.0) L 09/07/25 10:09 MCV 95.8 fL (80.0-100.0) 09/07/25 10:09 MCH 31.8 pg (25.0-34.0) 09/07/25 10:09 MCHC 33.2 g/dL (32.0-36.0) 09/07/25 10:09 RDW Std Deviation 47.9 fL (36.4-46.3) H 09/07/25 10:09 RDW Coeff of Adrianne 13.6 % (11.5-14.5) 09/07/25 10:09 Plt Count 236 K/uL (130-400) 09/07/25 10:09 MPV 10.2 fL (9.4-12.4) 09/07/25 10:09 Immature Gran % (Auto) 0.2 % 09/07/25 10:09 Neut % (Auto) 57.9 % 09/07/25 10:09 Lymph % (Auto) 33.9 % 09/07/25 10:09 Waldo % (Auto) 5.9 % 09/07/25 10:09 Eos % (Auto) 1.9 % 09/07/25 10:09 Baso % (Auto) 0.2 % 09/07/25 10:09 Neut # (Auto) 4.93 K/uL (1.40-6.50) 09/07/25 10:09 Lymph # (Auto) 2.89 K/uL (1.20-3.40) 09/07/25 10:09 Waldo # (Auto) 0.50 K/uL (0.11-0.59) 09/07/25 10:09 Eos # (Auto) 0.16 K/uL (0.00-0.50) 09/07/25 10:09 Baso # (Auto) 0.02 K/uL (0.00-0.20) 09/07/25 10:09 Immature Gran # (Auto) 0.02 K/uL (0.01-0.20) 09/07/25 10:09 PT 9.8 Seconds (9.0-12.0) 09/07/25 10:09 INR 0.9 (0.9-1.1) 09/07/25 10:09 Sodium 139 mmol/L (136-145) 09/07/25 10:09 Potassium 4.0 mmol/L (3.5-5.1) 09/07/25 10:09 Chloride 102 mmol/L (98-107) 09/07/25 10:09 Carbon Dioxide 29 mmol/L (21-32) 09/07/25 10:09 Anion Gap 8 (3-11) 09/07/25 10:09 BUN 38 mg/dl (6-23) H 09/07/25 10:09 Creatinine 1.64 mg/dl (0.6-1.2) H 09/07/25 10:09 Est Cr Clr Drug Dosing 24.5 ml/min 09/07/25 10:09 eGFR 29.74 09/07/25 10:09 BUN/Creatinine Ratio 23.2 (10-20) H 09/07/25 10:09 Glucose 133 mg/dl (70-99(Fasting)) H 09/07/25 10:09 Calcium 9.5 mg/dl (8.6-10.3) 09/07/25 10:09 Phosphorus 3.4 mg/dl (2.5-4.9) 09/07/25 10:09 Magnesium 2.2 mg/dl (1.7-2.4) 09/07/25 10:09 Total Bilirubin 0.4 mg/dl (0.2-1.0) 09/07/25 10:09 AST 17 U/L (13-39) 09/07/25 10:09 ALT 11 U/L (7-52) 09/07/25 10:09 Alkaline Phosphatase 63 U/L (34-104) 09/07/25 10:09 Troponin I High Sens 11.9 pg/ml (0-14) 09/07/25 10:09 Total Protein 6.9 gm/dl (6.0-8.3) 09/07/25 10:09 Albumin 4.1 gm/dl (3.4-5.0) 09/07/25 10:09 Globulin 2.8 gm/dl (2.5-4.0) 09/07/25 10:09 Albumin/Globulin Ratio 1.5 (0.9-2) 09/07/25 10:09 Lipase 74 U/L (11-82) 09/07/25 10:09 Urine Color Yellow 09/07/25 13:27 Urine Appearance Clear (Clear) 09/07/25 13:27 Urine pH 7.5 (4.5-7.5) 09/07/25 13:27 Ur Specific Lamont 1.021 (1.000-1.030) 09/07/25 13:27 Urine Protein 2+ (Negative) H 09/07/25 13:27 Urine Glucose (UA) Negative (Negative) 09/07/25 13:27 Urine Ketones Negative (Negative) 09/07/25 13:27 Urine Blood Negative (Negative) 09/07/25 13:27 Urine Nitrite Negative (Negative) 09/07/25 13:27 Urine Bilirubin Negative (Negative) 09/07/25 13:27 Urine Urobilinogen Negative (Negative) 09/07/25 13:27 Ur Leukocyte Esterase Negative (Negative) 09/07/25 13:27 Urine WBC (Auto) 0-5 /hpf (0-5) 09/07/25 13:27 Urine RBC (Auto) 0-2 /hpf (0-2) 09/07/25 13:27 U Hyaline Cast (Auto) 0-2 /lpf (0-2) 09/07/25 13:27 U Epithel Cells (Auto) 0-2 /hpf (0-2) 09/07/25 13:27 Urine Bacteria (Auto) None Seen (None Seen) 09/07/25 13:27 Urine Comment 09/07/25 13:27 Impressions Abdomen/Pelvis CT 09/07/25 11:19 CT SCAN OF THE ABDOMEN AND PELVIS WITH IV CONTRAST; CT SCAN OF THE LUMBAR SPINE WITH IV CONTRAST CLINICAL HISTORY: Generalized abdominal pain. Low back pain. COMPARISON STUDY: No priors TECHNIQUE: Following the IV administration of 94 cc of Optiray 320, CT scan of the abdomen and pelvis is performed from the lung bases to the proximal femora. Additionally, CT scan of the lumbar spine is performed from the lower thoracic spine to sacrum. Images for both examinations are reviewed in the axial, sagittal, and coronal planes. IV contrast was administered without complication. A dose lowering technique was utilized adhering to the principles of ALARA. CT DOSE: 1205.13 mGy.cm FINDINGS: Lung bases: The heart is normal in size and without pericardial effusion. There is bibasilar scarring/atelectasis. No airspace consolidation typical for pneumonia or pleural effusion is identified. A small hiatal hernia is noted. There is severe asymmetric soft tissue density within the right breast as compared to the left. Liver: The contrast-enhanced liver is normal in size, contour, and attenuation. There is no intrahepatic biliary ductal dilatation. The hepatic veins and portal veins are patent. Gallbladder: Small gallstones are suspected. The gallbladder is distended but otherwise normal as imaged. Spleen: Normal in size and attenuation. Pancreas: Unremarkable. Adrenal glands: Unremarkable. Kidneys: The contrast enhanced kidneys are normal in size and without hydronephrosis. The kidneys enhance symmetrically. There is a 1.9 cm indeterminant and possibly enhancing lesion is seen in the lower pole of left kidney on image #129. Scattered renal cysts measure up to 2.4 cm. Additional subcentimeter cortical hypodensities also likely represent cysts but are too small for definitive characterization. Abdominal vasculature: There is moderate to advanced atherosclerotic calcification and mild ectasia of the abdominal aorta. Bowel: There is advanced colonic diverticulosis without CT evidence of acute diverticulitis. No bowel obstruction is seen. [id number] fecal retention is noted throughout the colon. A segment of small bowel is contained within an umbilical hernia. The appendix is normal as visualized. Peritoneum: There is no intraperitoneal free air or abdominal ascites. There is a fat and bowel containing umbilical hernia. There is also a fat-containing supraumbilical hernia seen on image #179. Lymphadenopathy: None. Pelvic viscera: The bladder is normal as visualized. The uterus is surgically absent. No adnexal lesion is seen. Skeletal structures: The skeletal structures are osteopenic. See below for discussion of lumbar spine. No lytic or blastic lesions are seen. Degenerative sclerosis is seen within the sacroiliac joints and pubic symphysis. LUMBAR SPINE: Vertebral body height is maintained throughout the lumbar spine. There is minimal anterolisthesis at L4-L5. Alignment is otherwise preserved. Anterior and lateral marginal osteophytes are seen throughout. There is no evidence of fracture or malalignment. The transverse and spinous processes are intact. There is no spondylolysis. There is severe disc space narrowing and partial bony fusion at L2-L3. Severe disc space narrowing is seen at L1-L2 with endplate sclerosis. Moderate to severe disc space narrowing is noted at L3-L4. Posterior disc osteophyte complexes are noted at all lumbar levels. There is at least mild central canal stenosis at L2-L3. A left posterolateral disc extrusion is suggested at L4-L5. This likely cause significant central canal stenosis. There is also bilateral neural foraminal narrowing at L4-L5. The paraspinous soft tissues are within normal limits. IMPRESSION: 1. No acute infectious or inflammatory findings are identified in the abdomen or pelvis. 2. Advanced colonic diverticulosis without CT evidence of acute diverticulitis. 3. There is a 1.9 cm indeterminate and possibly enhancing lesion in the lower pole of the left kidney. Follow-up with urology is recommended, as a renal neoplasm is to be excluded. 4. An umbilical hernia contains a tiny nonobstructed segment of small bowel. 5. No acute bony abnormality is seen involving the lumbar spine. 6. Suspect a left posterolateral disc extrusion at L4-L5 which likely causes significant central canal stenosis. 7. There is significantly asymmetric soft tissue density within the right breast as compared to the left. This is not well evaluated by CT. Nonemergent mammography is recommended for further evaluation. 8. Additional findings as above. ACT 112: Positive. There are findings on this exam that require communication between the performing entity and the patient following Patient Test Result Information Act ([place] Act 112) guidelines. Electronically signed by: Michael Rock M.D. 09/07/2025 1:32 PM Chest X-Ray 09/07/25 11:19 SINGLE VIEW CHEST CLINICAL HISTORY: Back pain FINDINGS: 2 AP, portable, upright chest radiographs are obtained. No prior studies are available for comparison at the time of dictation. The heart is enlarged noting atherosclerotic calcification of the thoracic aorta. The pulmonary vasculature is noncongested. There is bibasilar scarring/atelectasis. No airspace consolidation or large pleural effusion is identified. No pneumothorax is seen. The skeletal structures are osteopenic. The bony thorax is grossly intact. Arthritic change is seen in the shoulders. IMPRESSION: Cardiomegaly with no acute cardiopulmonary abnormality identified. ACT 112: Negative or not required by law. Electronically signed by: Michael Rock M.D. 09/07/2025 11:[address] 09/07/25 11:19 CT SCAN OF THE ABDOMEN AND PELVIS WITH IV CONTRAST; CT SCAN OF THE LUMBAR SPINE WITH IV CONTRAST CLINICAL HISTORY: Generalized abdominal pain. Low back pain. COMPARISON STUDY: No priors TECHNIQUE: Following the IV administration of 94 cc of Optiray 320, CT scan of the abdomen and pelvis is performed from the lung bases to the proximal femora. Additionally, CT scan of the lumbar spine is performed from the lower thoracic spine to sacrum. Images for both examinations are reviewed in the axial, sagittal, and coronal planes. IV contrast was administered without complication. A dose lowering technique was utilized adhering to the principles of ALARA. CT DOSE: 1205.13 mGy.cm FINDINGS: Lung bases: The heart is normal in size and without pericardial effusion. There is bibasilar scarring/atelectasis. No airspace consolidation typical for pneumonia or pleural effusion is identified. A small hiatal hernia is noted. There is severe asymmetric soft tissue density within the right breast as compared to the left. Liver: The contrast-enhanced liver is normal in size, contour, and attenuation. There is no intrahepatic biliary ductal dilatation. The hepatic veins and portal veins are patent. Gallbladder: Small gallstones are suspected. The gallbladder is distended but otherwise normal as imaged. Spleen: Normal in size and attenuation. Pancreas: Unremarkable. Adrenal glands: Unremarkable. Kidneys: The contrast enhanced kidneys are normal in size and without hydr onephrosis. The kidneys enhance symmetrically. There is a 1.9 cm indeterminant and possibly enhancing lesion is seen in the lower pole of left kidney on image #129. Scattered renal cysts measure up to 2.4 cm. Additional subcentimeter cortical hypodensities also likely represent cysts but are too small for definitive characterization. Abdominal vasculature: There is moderate to advanced atherosclerotic calcification and mild ectasia of the abdominal aorta. Bowel: There is advanced colonic diverticulosis without CT evidence of acute diverticulitis. No bowel obstruction is seen. [id number] fecal retention is noted throughout the colon. A segment of small bowel is contained within an umbilical hernia. The appendix is normal as visualized. Peritoneum: There is no intraperitoneal free air or abdominal ascites. There is a fat and bowel containing umbilical hernia. There is also a fat-containing supraumbilical hernia seen on image #179. Lymphadenopathy: None. Pelvic viscera: The bladder is normal as visualized. The uterus is surgically absent. No adnexal lesion is seen. Skeletal structures: The skeletal structures are osteopenic. See below for discussion of lumbar spine. No lytic or blastic lesions are seen. Degenerative sclerosis is seen within the sacroiliac joints and pubic symphysis. LUMBAR SPINE: Vertebral body height is maintained throughout the lumbar spine. There is minimal anterolisthesis at L4-L5. Alignment is otherwise preserved. Anterior and lateral marginal osteophytes are seen throughout. There is no evidence of fracture or malalignment. The transverse and spinous processes are intact. There is no spondylolysis. There is severe disc space narrowing and partial bony fusion at L2-L3. Severe disc space narrowing is seen at L1-L2 with endplate sclerosis. Moderate to severe disc space narrowing is noted at L3-L4. Posterior disc osteophyte complexes are noted at all lumbar levels. There is at least mild central canal stenosis at L2-L3. A left posterolateral disc extrusion is suggested at L4-L5. This likely cause significant central canal stenosis. There is also bilateral neural foraminal narrowing at L4-L5. The paraspinous soft tissues are within normal limits. IMPRESSION: 1. No acute infectious or inflammatory findings are identified in the abdomen or pelvis. 2. Advanced colonic diverticulosis without CT evidence of acute diverticulitis. 3. There is a 1.9 cm indeterminate and possibly enhancing lesion in the lower pole of the left kidney. Follow-up with urology is recommended, as a renal neoplasm is to be excluded. 4. An umbilical hernia contains a tiny nonobstructed segment of small bowel. 5. No acute bony abnormality is seen involving the lumbar spine. 6. Suspect a left posterolateral disc extrusion at L4-L5 which likely causes significant central canal stenosis. 7. There is significantly asymmetric soft tissue density within the right breast as compared to the left. This is not well evaluated by CT. Nonemergent mammography is recommended for further evaluation. 8. Additional findings as above. ACT 112: Positive. There are findings on this exam that require communication between the performing entity and the patient following Patient Test Result Information Act ([place] Act 112) guidelines. Electronically signed by: Michael Rock M.D. 09/07/2025 1:32 PM ECG Additional Comments: ECG. Sinus rhythm with first-degree AV block at rate of 75. Moderate voltage criteria for LVH. QTc 422 Code Status & VTE Plan VTE Prophylaxis Plan VTE Prophylaxis will be ordered: Yes
[2025-09-07] MEDS ORDERED: GLUCAGON FOR INJ 1 MG VIAL SQ PRN (19:09)
[2025-09-07] MEDS ORDERED: GLUCOSE 10 TAB/TUBE PO PRN (19:09)
[2025-09-07] MEDS ORDERED: GLUCOSE 40% GEL 15 GM TUBE PO PRN (19:09)
[2025-09-07] MEDS ORDERED: CARBOHYDRATES FOR HYPOGLYCEMIA PO PRN (19:09)
[2025-09-07] MEDS ORDERED: NITROGLYCERIN SL 0.4 MG/TAB TAB SL PRN (19:09)
[2025-09-07] MEDS ORDERED: POLYETHYLENE (MIRALAX) 17 GM PACK PO PRN (19:09)
[2025-09-07] MEDS ORDERED: HYDROmorphone INJ 0.5 MG/0.5 ML SYR IV PRN (19:09)
[2025-09-07] MEDS ORDERED: DEXTROSE 50% 50 ML SYRINGE IV PRN (19:09)
[2025-09-07] MEDS ORDERED: LABETALOL HCL IV 5 MG/ML 20ML IV PRN (19:09)
[2025-09-07] MEDS ORDERED: ARTIFICIAL TEARS OP PRN (19:20)
--- NOTE | 2025-09-07 19:21 | Magnetic Resonance Report ---
Exam: Member lumbar spine without contrast. History: Low back pain with bilateral leg pain and numbness. Comparison:None. Technique: Routine multiplanar multisequence MR images of the lumbar spine without intravenous contrast were obtained and reviewed. Findings: Note is made that the lowest fully formed intervertebral disc will be labeled L5-S1 for purposes of this dictation. Marrow signal demonstrates no appreciated occult fracture or edema. Mild stepwise retrolisthesis upper lumbar spine. Mild anterolisthesis L4 and L5. Multilevel disc desiccation with endplate osteophytes. Height loss is noted. Likely acquired fusion changes anterior lateral left L2-L3 vertebral bodies. Conus terminates at the L1 level with normal signal and caliber. Axial series demonstrates [id number]: L1-L2 level demonstrates mild circumferential disc osteophyte complexes. No significant spinal canal or foraminal narrowing. L2-L3 level demonstrates circumferential disc osteophyte complex with mild uncovering of the intervertebral disc. Ligamentum flavum thickening and facet arthropathy changes. Mild to moderate spinal canal narrowing. Mild foraminal narrowing. L3-L4 level demonstrates abundant facet arthropathy changes and ligamentum flavum thickening. Effacement of the thecal sac CSF with moderate spinal canal narrowing. Mild uncovering of the intervertebral disc. Moderate to marked right and moderate left foraminal narrowing. L4-L5 level demonstrates ligamentum flavum thickening and facet arthropathy changes. At least moderate bilateral facet joint effusions. Moderate spinal canal stenosis. Central disc protrusion with superior extrusion is noted. Marked left and moderate right foraminal stenoses. Crowding of the posterior spinous processes with increased fluid-sensitive signal along the interspinous bursa. L5-S1 level demonstrates bilateral facet joint fluid. Circumferential disc and mild ligamentum flavum thickening yielding mild to moderate spinal canal narrowing. Moderate bilateral foraminal stenoses. Include retroperitoneal structures demonstrate likely benign left renal cysts. Additional likely hemorrhagic cyst posterior left kidney. Paraspinous musculature demonstrates mild diffuse fatty infiltration. Impression: 1. Multilevel degenerative changes yielding marked spinal canal and foraminal stenoses as described above. Facet arthropathy changes and joint effusions with additional likely interspinous bursitis L4-L5. Please see above for details. Plain film correlate would be helpful. 2. Likely hemorrhagic cyst left kidney. Ultrasound would be helpful for further characterization if indicated. Electronically signed by Matthew Mireles 09-07-2025 7:21 PM
[2025-09-07] MEDS: GABAPENTIN 400 MG CAP PO SCH (19:47)
[2025-09-07] MEDS: HYDROmorphone INJ 0.5 MG/0.5 ML SYR IV PRN (19:47)
--- NOTE | 2025-09-07 20:46 | Urology Consultation ---
Date of Consultation September 07, 2025 Assessment & Plan (1) Renal mass: The patient has been admitted on the hospitalist service. From a urologic perspective we recommend the following: Patient does have concern for a renal mass/lesionstatus is uncertain if this represents a cyst or solid structure At the present time the patient is nontoxic-appearing is currently hemodynamically stable Patient was seen by urology attending the morning of 09/08/2025 and determination be made if patient requires any further imaging at this admission or if additional imaging will be pursued at a slightly time interval Was also noted to mention the patient reports that she did have a hysterectomy at [facility] in [place], [place] approximately 3 years ago at which time she did have a CT scan (the CT scans were not available to me at this time but may be beneficial to obtain these images for comparison purposes Additional recommendations be forthcoming based on her clinical course as unfolds Plan Attending note: Patient independently assessed, examined, interviewed, and evaluated. Agree with note as above. Patient's vitals and labs were all reviewed. Pertinent values in the HPI and plan section. Imaging was reviewed interpreted by myself. Agree with read. Vitals were reviewed. Discussed findings extensively with patient and family. Reviewed with nurse practitioner as well as consulting physicians/team. Patient's complicated medical and surgical history was reviewed and summarized above. Patient's surgical, medical, social, and family history were all reviewed with pertinent values as above. Long counseling session with patient and family. Discussed concern for Renal Mass and Renal Cell Carcinoma. Additionally discussed benign renal masses. Did discuss cystic lesions. Discussed other findings on imaging. Discussed need for imaging. Discussed management of RCC and lack of chemotherapy or radiation options. All options including surgery, ablation, and conservative management as well as targeted therapies. Reviewed options for small renal mass. Discussed potential options including active surveillance Discussed patient's current diagnosis as well as concerns and issues. Reviewed different options moving forward. Discussed potential risks and benefits as well as possible options and concerns. Reviewed potential options and interventions. Discussed potential issues and concerns related to intervention. Risk and benefits were discussed extensively with patient and any available family. Patient is currently undergoing workup for other issues. Is been admitted to the medicine team. Is being monitored closely. Reviewed extensively options moving forward. Will plan to set patient up for repeat imaging in approximately 3 to [address] scan of the abdomen with and without contrast renal mass protocol to fully evaluate. Small renal lasted less than 2 cm. Would likely recommend active surveillance and monitoring. Patient has previously had significant abdominal surgery history additionally is advanced age with multiple other comorbidities. Can likely monitor over time with assessment for changes or other major abnor mality History of Present Illness Reason for Consultation: Left renal lesion Attending Physician: Rich Whittaker MD History of Present Illness Is an 89-year-old female who was admitted to the hospital secondary to back pain. Patient notes that she has been having ongoing back pain for several months but over the past week has gotten progressively worse. She notes that it is in her left flank with some radiation to the front of her abdomen and also down her left leg to her foot. Patient says she is able to walk using a walker. Patient denies any difficulty urinating and specifically denies any dysuria or hematuria. She denies any weight loss. She has no known history of kidney stones. She does not have any known history of kidney cysts to the best of her knowledge. Since arrival to hospital patient has had labs and imaging which I independently reviewed. A CT scan of the abdomen pelvis showed the patient had a potentially enhancing lesion of the left kidney measuring 1.9 cm located on the lower pole of this kidney. Chest x-ray showed no evidence of pneumonia. A lumbar spine CT scan noted the above renal mass. Patient was also noted to have some left posterolateral disc extrusion at the L4-L5 level. A lumbar spine MRI was performed that did show some extrusion of the L4-L5 disc centrally. Concern was noted for hemorrhagic cyst of the left kidney. Labs included CBC white blood cell count platelet count were normal. Her hemoglobin was normal and her hematocrit was 36.1. Chemistry profile showed sodium and potassium were normal. Her BUN and creatinine were 38 and 1.6. Coagulation studies were noted to be normal. Urinalysis was not indicative of infection. At the time of my interview she was resting comfortably in bed and she was no distress Allergies Allergy/AdvReac Type Severity Reaction Status Date / Time baclofen Allergy Unknown ON Verified 09/07/25 15:12 [facility] MED LIST buspirone [From BuSpar] AdvReac Intermediate "DIDN'T Verified 09/07/25 15:12 FEEL WELL ON IT". fluoxetine [From Prozac] AdvReac Intermediate "DIDN'T Verified 09/07/25 15:12 FEEL WELL ON IT". metformin AdvReac Intermediate ELEVATED Verified 09/07/25 15:12 RENAL FUNCTIONS Sulfa (Sulfonamide AdvReac Mild NAUSEA/OVER Verified 09/07/25 15:12 Antibiotics) 40 YEARS AGO. Home Medications Medication Instructions Recorded Confirmed Type aspirin 81 mg tablet,delayed 81 mg PO DAILY 09/07/21 09/07/25 History release cholecalciferol (vitamin D3) 25 25 mcg PO DAILY 09/07/21 09/07/25 History mcg (1,000 unit) capsule citalopram 20 mg tablet (Celexa) 20 mg PO DAILY 09/07/21 09/07/25 History losartan 100 mg tablet 100 mg PO DAILY 09/07/21 09/07/25 History acetaminophen 500 mg tablet 1,000 mg PO Q6H PRN PAIN/FEVER 09/07/25 09/07/25 History (Tylenol Extra Strength) allopurinol 100 mg tablet 100 mg PO QAM 09/07/25 09/07/25 History amlodipine 5 mg tablet 5 mg PO QPM 09/07/25 09/07/25 History ammonium lactate 12 % topical cream 1 applic topical DAILY 09/07/25 09/07/25 Hi story cyanocobalamin (vitamin B-12) 1,000 mcg PO DAILY 09/07/25 09/07/25 History 1,000 mcg tablet (Vitamin B-12) docusate sodium 100 mg capsule 100 mg PO HS 09/07/25 09/07/25 History gabapentin 400 mg capsule 400 mg PO QID 09/07/25 09/07/25 History melatonin 3 mg disintegrating 3 mg PO HS 09/07/25 09/07/25 History tablet nitroglycerin 0.4 mg sublingual 0.4 mg sublingual DIRECTED PRN 09/07/25 09/07/25 History tablet (Nitrostat) Chest Pain omega-3 fatty acids 1,000 mg 1,000 mg PO DAILY 09/07/25 09/07/25 History capsule omeprazole 20 mg capsule,delayed 20 mg PO QAM 09/07/25 09/07/25 History release polyvinyl alcohol-povidone (PF) 1 drp OPB DIRECTED PRN Dry Eyes 09/07/25 09/07/25 History 1.4 %-0.6 % eye drops in a dropperette (Refresh Classic (PF)) prednisone 10 mg tablet 10 mg PO DIRECTED 09/07/25 09/07/25 History rosuvastatin 5 mg tablet 5 mg PO QAM 09/07/25 09/07/25 History semaglutide 1 mg/dose (4 mg/3 mL) 1 mg subcut WK 09/07/25 09/07/25 History subcutaneous pen injector (Ozempic) Patient History Medical History Family history of cancer Family history of diabetes mellitus Surgical History History of heart artery stent History of shoulder surgery History of carpal tunnel release History of cataract surgery Social History Smoking Status: Former smoker Tobacco Type: Cigarettes Second Hand Exposure: No; Hx Alcohol Use: No Hx Substance Use: No Preferred Language: Marshallese Communication Ability: Effective Drawer Fitter Required: No Beliefs That Will Affect Care: None Current Living Situation: Family Current Living Situation Comment: House with son Other Information That Helps Us Care for You: No Feels Safe at Home: Yes Assistive Devices: Glasses and Wheelchair Review of Systems Review of Systems: All systems reviewed & are unremarkable except as noted in HPI & below Physical Exam Constitutional: WD/WN, vitals as above Eyes: Wears glasses ENMT: Ears: no hearing impairment and no external ear abnormality Mouth: no oropharynx abnormality Neck: trachea midline Respiratory: normal respiratory effort; no respiratory distress and no labored breathing Cardiovascular: Rate/Rhythm: regular rate and regular rhythm Gastrointestinal (Abdomen): Abdomen soft without distention. There is no rebound tenderness, guarding, or signs of peritonitis. There is no pain with palpation Musculoskeletal: No calf tenderness Skin: no rashes Neurologic: moves all extremities Psychiatric: A+Ox3, euthymic affect Genitourinary: Only slight CVA tenderness with percussion on the left. None on the right Results & Data Vital Signs (Past 12 Hours) Vital Signs Temp Pulse Pulse Resp BP BP Pulse Ox 09/07/25 18:01 81 20 185/102 H 93 09/07/25 18:01 81 185/102 H 09/07/25 17:33 80 217/117 H 09/07/25 17:00 81 16 207/94 H 95 09/07/25 16:47 80 189/81 H 09/07/25 16:45 80 16 189/81 H 93 09/07/25 16:30 79 15 177/99 H 92 09/07/25 16:21 80 12 188/84 H 93 09/07/25 16:15 78 12 188/84 H 91 09/07/25 16:11 85 203/97 H 09/07/25 16:00 88 14 203/97 H 95 09/07/25 15:42 84 16 223/103 H 94 09/07/25 15:21 87 13 213/101 H 97 09/07/25 14:39 83 09/07/25 14:00 82 13 203/94 H 95 09/07/25 13:30 82 16 194/92 H 97 09/07/25 13:09 79 17 204/90 H 95 09/07/25 13:00 80 23 201/87 H 94 09/07/25 12:54 82 20 205/87 H 97 09/07/25 12:51 78 18 202/88 H 93 09/07/25 12:30 78 19 179/107 H 94 09/07/25 12:00 74 13 180/84 H 93 09/07/25 11:30 82 21 166/119 H 96 09/07/25 11:12 81 15 195/91 H 96 09/07/25 11:00 81 17 96 09/07/25 11:00 80 20 195/91 H 98 09/07/25 10:16 85 09/07/25 10:03 36.5 C 102 H 16 193/91 H 97 O2 Del Method 09/07/25 18:01 Room Air 09/07/25 18:01 09/07/25 17:33 09/07/25 17:00 Room Air 09/07/25 16:47 09/07/25 16:45 Room Air 09/07/25 16:30 Room Air 09/07/25 16:21 Room Air 09/07/25 16:15 Room Air 09/07/25 16:11 09/07/25 16:00 Room Air 09/07/25 15:42 Room Air 09/07/25 15:21 Room Air 09/07/25 14:39 09/07/25 14:00 Room Air 09/07/25 13:30 Room Air 09/07/25 13:09 Room Air 09/07/25 13:00 Room Air 09/07/25 12:54 Room Air 09/07/25 12:51 Room Air 09/07/25 12:30 Room Air 09/07/25 12:00 Room Air 09/07/25 11:30 Room Air 09/07/25 11:12 Room Air 09/07/25 11:00 09/07/25 11:00 Room Air 09/07/25 10:16 09/07/25 10:03 Room Air PG Care Time/CCT Total # of Minutes Spent Total Time Spent with Patient: Total time spent is greater than 50% in coordination of care (as documented) at patient's floor/unit and/or counseling patient: Coding Level of Care Code 44827 INT INP/OBS CARE 3/75MIN Diagnoses Renal mass N28.89
[2025-09-07] MEDS: DOCUSATE SODIUM 100 MG CAP PO SCH (21:01)
[2025-09-07] MEDS: INSULIN ASPART PER UNIT CHARGE SC SCH (21:03)
[2025-09-07] MEDS: MELATONIN 3 MG TAB PO SCH (21:04)
[2025-09-07] MEDS: HEPARIN SOD 5,000 UNIT/0.5 ML VIAL SQ SCH (21:08)
--- NOTE | 2025-09-07 21:37 | Electrocardiogram Report ---
Test Reason : Blood Pressure : */* mmHG Vent. Rate : 75 BPM Atrial Rate : 75 BPM P-R Int : 220 ms QRS Dur : 96 ms QT Int : 378 ms P-R-T Axes : 57 -27 45 degrees QTcB Int : 422 ms Sinus rhythm with 1st degree A-V block Moderate voltage criteria for LVH, may be normal variant ( R in aVL , Heriberto product ) Poor R wave progression, consider anterior WA vs. lead placement vs. LVH Borderline ECG No previous ECGs available Confirmed by Ramsey Tanner ([id number]) on 09/07/2025 9:36:40 PM Referred By: REFERRED SELF Confirmed By: Ramsey Tanner
[2025-09-08 06:08] LABS: Hematocrit (blood only) 32.4 % (37.0-47.0); Hemoglobin 10.9 g/dL (12.0-16.0); Immature Granulocytes # (auto) 0.04 K/uL (0.01-0.20); Immature Granulocytes % (auto) 0.6 %; Mean Corpuscular Hemoglobin 32.2 pg (25.0-34.0); Mean Corpuscular Volume 95.9 fL (80.0-100.0); Platelet Count 215 K/uL (130-400); RDW Standard Deviation 48.8 fL (36.4-46.3); Red Blood Count 3.38 M/uL (4.20-5.40); White Blood Count 7.14 K/ul (4.8-10.8)
[2025-09-08 06:43] LABS: Anion Gap 8.0 (3-11); Blood Urea Nitrogen 41.0 mg/dl (6-23); Calcium 9.1 mg/dl (8.6-10.3); Carbon Dioxide 28.0 mmol/L (21-32); Chloride 102.0 mmol/L (98-107); Creatinine Clr Calc Pharmacy 19.1 ml/min; Glucose 118.0 mg/dl (70-99(Fasting)); Magnesium 2.4 mg/dl (1.7-2.4); Potassium 5.1 mmol/L (3.5-5.1); Sodium 138.0 mmol/L (136-145)
[2025-09-08 08:41] LABS: Hemoglobin A1C 6.2 % (4.5-5.6)
[2025-09-08] MEDS: CHOLECALCIFEROL 25 MCG (1000 UNITS) TAB PO SCH (08:54)
[2025-09-08] MEDS: ROSUVASTATIN CALCIUM 5 MG TAB PO SCH (08:54)
[2025-09-08] MEDS: CYANOCOBALAMIN (B-12) 500 MCG TABLET PO SCH (08:54)
[2025-09-08] MEDS: LOSARTAN POTASSIUM 50 MG TAB PO SCH (08:54)
[2025-09-08] MEDS: ASPIRIN 81 MG ECTAB PO SCH (08:54)
[2025-09-08] MEDS: CITALOPRAM 20 MG TAB PO SCH (08:54)
[2025-09-08] MEDS: AMMONIUM LACTATE 12% LOTION 225 GM BTL EXT SCH (08:55)
--- NOTE | 2025-09-08 09:31 | Orthopedic Consultation ---
Date of Consultation September 08, 2025 Assessment & Plan (1) Two-level lumbosacral spondylosis with radiculopathy: MRI of the lumbar spine performed [facility] [place] [facility] available for review performed 09/07/2025. Demonstrates multilevel spondylosis. Most impressive is L4-L5 spondylolisthesis with acute disc herniation and cephalad migration with migration into the foramina. L5-S1 demonstrates evidence of broad-based disc osteophyte complex subarticular stenosis on the left with neuroforaminal dis ease. Plan at length yesterday with the patient and her daughter reviewing her clinical presentation imaging and treatment options. We discussed medical management injections versus ultimately surgical intervention. Patient has failed an extensive course of nonoperative care she is markedly uncomfortable would like to remain independent. She would like to pursue surgical invention. It would require lumbar decompression and fusion L4-L5 L5-S1. Risk benefits pros cons and alternatives were all in detail. Risk include but not limited to anesthesia plan is for paralysis nerve damage blood loss requiring transfusion infection requiring reoperation. Actually marked improvement of her radiculopathy and ability to ambulate. At this time she would like to surgery. I will have her maximize with medicine and seek anesthesia consultation. Will plan for Monday. History of Present Illness Reason for Consultation: Back and left leg pain Attending Physician: Savage Lowry, DO History of Present Illness This is a very pleasant 89-year-old female who presents to the hospital over the weekend with severe back and left leg pain. Her daughter is at the bedside throughout our discussion this morning. She has had a steady onset of back and leg symptoms for several months that has gotten severe over the weekend. She denies any trauma fall or event. She has had a series of injections as well as oral steroids without any meaningful improvement. She describes pain involving the back rating left buttock posterolateral thigh into the anterior tibia into the foot. She is hyperesthetic. Is markedly limited in her ability to ambulate. Narcotic medications providing very little relief. Allergies Allergy/AdvReac Type Severity Reaction Status Date / Time baclofen Allergy Unknown ON Verified 09/07/25 15:12 [facility] MED LIST buspirone [From BuSpar] AdvReac Intermediate "DIDN'T Verified 09/07/25 15:12 FEEL WELL ON IT". fluoxetine [From Prozac] AdvReac Intermediate "DIDN'T Verified 09/07/25 15:12 FEEL WELL ON IT". metformin AdvReac Intermediate ELEVATED Verified 09/07/25 15:12 RENAL FUNCTIONS Sulfa (Sulfonamide AdvReac Mild NAUSEA/OVER Verified 09/07/25 15:12 Antibiotics) 40 YEARS AGO. Home Medications Medication Instructions Recorded Confirmed Type aspirin 81 mg tablet,delayed 81 mg PO DAILY 09/07/21 09/07/25 History release cholecalciferol (vitamin D3) 25 25 mcg PO DAILY 09/07/21 09/07/25 History mcg (1,000 unit) capsule citalopram 20 mg tablet (Celexa) 20 mg PO DAILY 09/07/21 09/07/25 History losartan 100 mg tablet 100 mg PO DAILY 09/07/21 09/07/25 History acetaminophen 500 mg tablet 1,000 mg PO Q6H PRN PAIN/FEVER 09/07/25 09/07/25 History (Tylenol Extra Strength) allopurinol 100 mg tablet 100 mg PO QAM 09/07/25 09/07/25 History amlodipine 5 mg tablet 5 mg PO QPM 09/07/25 09/07/25 History ammonium lactate 12 % topical cream 1 applic topical DAILY 09/07/25 09/07/25 History cyanocobalamin (vitamin B-12) 1,000 mcg PO DAILY 09/07/25 09/07/25 History 1,000 mcg tablet (Vitamin B-12) docusate sodium 100 mg capsule 100 mg PO HS 09/07/25 09/07/25 History gabapentin 400 mg capsule 400 mg PO QID 09/07/25 09/07/25 History melatonin 3 mg disintegrating 3 mg PO HS 09/07/25 09/07/25 History tablet nitroglycerin 0.4 mg sublingual 0.4 mg sublingual DIRECTED PRN 09/07/25 09/07/25 History tablet (Nitrostat) Chest Pain omega-3 fatty acids 1,000 mg 1,000 mg PO DAILY 09/07/25 09/07/25 History capsule omeprazole 20 mg capsule,delayed 20 mg PO QAM 09/07/25 09/07/25 History release polyvinyl alcohol-povidone (PF) 1 drp OPB DIRECTED PRN Dry Eyes 09/07/25 09/07/25 History 1.4 %-0.6 % eye drops in a dropperette (Refresh Classic (PF)) prednisone 10 mg tablet 10 mg PO DIRECTED 09/07/25 09/07/25 History rosuvastatin 5 mg tablet 5 mg PO QAM 09/07/25 09/07/25 History semaglutide 1 mg/dose (4 mg/3 mL) 1 mg subcut WK 09/07/25 09/07/25 History subcutaneous pen injector (Ozempic) Patient History Medical History Family history of cancer Family history of diabetes mellitus Surgical History History of heart artery stent History of shoulder surgery History of carpal tunnel release History of cataract surgery Social History Smoking Status: Former smoker Tobacco Type: Cigarettes Second Hand Exposure: No; Hx Alcohol Use: No Hx Substance Use: No Preferred Language: Bermudian Communication Ability: Effective Key Account Representative Required: No Beliefs That Will Affect Care: None Current Living Situation: Family Current Living Situation Comment: House with son Other Information That Helps Us Care for You: No Feels Safe at Home: Yes Assistive Devices: Glasses and Wheelchair Physical Exam Physical Exam: Patient is sitting up in bed. She does have breakaway weakness to left lower extremities. Is hyperesthetic to the left lower extremity. Deep and reflexes diminished. Results & Data Vital Signs (Past 12 Hours) Vital Signs Temp Pulse Pulse Resp BP Pulse Ox O2 Del Method 09/08/25 08:45 36.8 C 80 20 155/78 H 94 Room Air 09/08/25 05:44 81 09/08/25 04:00 76 142/65 H 09/08/25 02:35 36.7 C 77 18 187/77 H 96 Room Air 09/07/25 22:47 36.7 C 76 18 128/70 93 Room Air 09/07/25 22:02 75
--- NOTE | 2025-09-08 11:04 | Hospitalist Progress Note ---
<Statement entered by Savage Lowry, DO - 09/08/25 12:21> I have seen and examined the patient and have discussed the case with the advance practice provider. I have reviewed the advanced practitioner's documentation, and I agree with, and take responsibility for that plan of care. Patient seen with daughter at bedside. Had been seen earlier by orthopedic spine. Surgical intervention offered to her. Patient choosing to move forward with surgical intervention. She reports that she has tried numerous conservative measures and treatments without significant improvement. Patient appears medically maximized to undergo anticipated spinal surgery on Monday. Continue to monitor medical issues, pain control. Care as outlined below I spent a total of 18 minutes coordinating, documenting, and providing care for this patient excluding time spent by another provider/QHP. Date of Service September 08, 2025 Assessment & Plan (1) Intractable low back pain: (2) Multilevel lumbosacral spondylosis with radiculopathy: (3) Hypertensive urgency: Plan Patient is an 89-year-old female with past medical history significant for type 2 diabetes, dyslipidemia, gout, hypercholesterolemia, uncomplicated asthma, hypertension, CAD s/p stenting, GERD, CKD stage IV, degenerative disc disease, anemia of chronic renal failure, history of squamous cell carcinoma and depression with anxiety who presented to the ED on 09/07/2025 with c/o intractable low back pain with radiation down the LLE. Ongoing for several months with acute worsening x 3-4 days [employer]. Has trialed series of spinal injections and oral corticosteroid courses w/o significant relief. Lumbar spine CT: severe disc space narrowing and partial bony fusion at L2-L3, severe disc space narrowing seen at L1-L2 with endplate sclerosis, moderate to severe disc space narrowing noted at L3-L4, mild central canal stenosis at L2- L3, left posterolateral disc extrusion is suggested at L4-L5 causing significant central canal stenosis, bilateral neural foraminal narrowing at L4-L5. Lumbar spine MRI: multilevel degenerative changes yielding marked spinal canal and foraminal stenoses, facet arthropathy changes and joint effusions with additional likely interspinous bursitis L4-L5. Intractable low back pain Multilevel lumbar spondylosis with radiculopathy Imaging findings as per above. Appreciate ortho spine consult, discussed injections vs surgical intervention >> pt opted for surgical intervention. Tentatively scheduled for lumbar decompression and fusion at L4-S1 on 09/[address] Va. Will hold ASA and SQ heparin for now in anticipation of surgery. NPO at midnight on 09/10 (order already placed). Continue PRN analgesia. Appreciate PT/OT evals preop and postop. Pt currently lives with her son >> depending on postop course, may benefit from SNF vs home. HTN urgency Improved s/p IV labetalol in addition to home antiHTN reg. Continue losartan and Norvasc with routine BP checks. If BP remains stable, can likely downgrade from med/telemetry to med/surg later today or tomorrow. Incidental imaging findings 1. Significantly asymmetric soft tissue density w/in the right breast as compared to the left (noted on CTAP). -Recommend nonemergent mammography vs breast US on OP basis. -Pt with history of dense breast tissue. No prior abnormal mammograms or breast US findings per pt. 2. 1.9 cm indeterminate and possibly enhancing lesion in the lower pole of the left kidney seen on CTAP. -Noted as possible hemorrhagic cyst on lumbar spine MRI. -Renal neoplasm cannot be excluded per CTAP impression >> urology was consulted for such. 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 -Given stable renal function, recommend OP renal US for further evaluation unless otherwise determined by urology. CKD stage IV Baseline creatinine 1.6-2 since September 2021 per chart review. Most recent OP creatinine = 2 as of 08/25/2025. Creatinine still remains around baseline. Avoid nephrotoxic agents as able. Monitor for contrast-induced nephropathy (s/p CTAP with con and lumbar spine CT with con on 09/07). DM type II SSI protocol while IP, on Ozempic [employer]. CC diet. Continue to monitor BSG checks ACHS. History of CAD s/p stenting S/p PCI to the LAD in 2007, continue ASA and statin. Had negative nuclear stress testing in April 2018. RCRI score = 3, 10% risk of major cardiac event >> d/w pt, accepting of such and wishing to proceed with above surgery. Other chronic medical conditions: Gout - Continue allopurinol. GERD - Continue PPI. HLD - Continue statin as per above. Depression with anxiety - Continue citalopram. DVT Prophylaxis: SCDs/TEDs, ASA and SQ heparin on hold as per above in anticipation for procedure. Code Status: FULL CODE PCP: Taina Queen DO Disposition: Dispo pending postop course >> home vs SNF, pt currently living with her son as per above. Patient seen in collaboration with Dr. Lowry. Please see addendum. I spent a total of 58 minutes coordinating, documenting, and providing care for this patient excluding time spent in the performance of separately billed services or time spent by another provider/QHP. This included personally reviewing all current laboratories and imaging studies, medical reconciliation, outpatient chart review and discussion with specialists. This chart was completed in part utilizing Speech Voice Recognition Software. Grammatical errors, random word insertions, pronoun errors, and incomplete sentences are an occasional consequence of this system due to software limitations, ambient noise, and hardware issues. Any formal questions or concerns about the content, text, or information contained within the body of this dictation should be directly addressed to the provider for clarification. Admission and Anticipated Discharge Date Admission Date: September 07, 2025 Subjective Patient seen and examined in room N284-2. Daughter present at bedside. Still with significant low back pain with radiation down the left leg, no significant radiculopathic complaints. Has not been out of bed since being moved upstairs from the ED. Describes marked limitations in her ability to ambulated 2/2 pain. Denies any chest pain or SOB. Using PureWick. No reported stool incontinence. Review of Systems Review of Systems: At least ten systems reviewed and negative, except as noted in the subjective section. Physical Exam Physical Exam: General: Elderly F. NAD, sitting back in bed. A&Ox3, conversing appropriately. Daughter at bedside. HEENT: Normocephalic, atraumatic. External ear and nose normal, oropharynx normal. Respiratory: Normal respiratory effort, CTAB. Cardiovascular: RRR, no BLE edema. Abdomen/GI: Active bowel sounds, soft, nondistended, nontender to palpation in all quadrants. Extremities/Musculoskeletal: No cyanosis or clubbing. Limited LLE mobility 2/2 pain, + LLE SLR test. Neurologic: No overt focal deficits, CN's II-XI not formally tested but appear grossly intact bilaterally. Results & Data Results & Data Vital Signs (Past 12 Hours) Vital Signs Temp Pulse Pulse Resp BP Pulse Ox O2 Del Method 09/08/25 08:45 36.8 C 80 20 155/78 H 94 Room Air 09/08/25 05:44 81 09/08/25 04:00 76 142/65 H 09/08/25 02:35 36.7 C 77 18 187/77 H 96 Room Air Laboratory Results Short CBC 09/07/25 09/08/25 Range/Units 10:09 05:37 WBC 8.52 7.14 (4.8-10.8) K/ul Hgb 12.0 10.9 L (12.0-16.0) g/dL Hct 36.1 L 32.4 L (37.0-47.0) % Plt Count 236 215 (130-400) K/uL BMP 09/07/25 09/08/25 10:09 05:37 Sodium 139 138 Potassium 4.0 5.1 D Chloride 102 102 Carbon Dioxide 29 28 BUN 38 H 41 H Creatinine 1.64 H 2.07 H D Glucose 133 H 118 H Calcium 9.5 9.1 Liver Function 09/07/25 Range/Units 10:09 Total Bilirubin 0.4 (0.2-1.0) mg/dl AST 17 (13-39) U/L ALT 11 (7-52) U/L Alkaline Phosphatase 63 (34-104) U/L Albumin 4.1 (3.4-5.0) gm/dl Urine 09/07/25 Range/Units 13:27 Urine Color Yellow Urine Appearance Clear (Clear) Urine pH 7.5 (4.5-7.5) Ur Specific [place] 1.021 (1.000-1.030) Urine Protein 2+ H (Negative) Urine Glucose (UA) Negative (Negative)
[2025-09-08] MEDS: MoRPHine SULFATE 2 MG/ML CARP IV PRN (12:03)
[2025-09-08] MEDS: HYDROmorphone INJ 1 MG/ML SYRINGE IV PRN (13:17)
[2025-09-08] MEDS: ACETAMINOPHEN 325 MG TAB PO PRN (14:23)
[2025-09-08] MEDS: CALCIUM CARBONATE 500 MG CHEWABLE TAB PO ONE (14:37)
[2025-09-09 07:18] LABS: Hematocrit (blood only) 32.6 % (37.0-47.0); Hemoglobin 10.4 g/dL (12.0-16.0); Mean Corpuscular Hemoglobin 31.8 pg (25.0-34.0); Mean Corpuscular Volume 99.7 fL (80.0-100.0); Platelet Count 191 K/uL (130-400); RDW Standard Deviation 52.5 fL (36.4-46.3); Red Blood Count 3.27 M/uL (4.20-5.40); White Blood Count 8.50 K/ul (4.8-10.8)
[2025-09-09 07:44] LABS: Anion Gap 8.0 (3-11); Blood Urea Nitrogen 60.0 mg/dl (6-23); Calcium 8.7 mg/dl (8.6-10.3); Carbon Dioxide 28.0 mmol/L (21-32); Chloride 100.0 mmol/L (98-107); Creatinine Clr Calc Pharmacy 13.9 ml/min; Glucose 127.0 mg/dl (70-99(Fasting)); Potassium 4.6 mmol/L (3.5-5.1); Sodium 136.0 mmol/L (136-145)
--- NOTE | 2025-09-09 08:04 | Anesthesiology Consultation ---
Date of Service September 09, 2025 Assessment & Plan Chart Review Chart Review: Pending: Refer to Additional Notes / Consult section Would like to find information from her past cardiac history (none showing in our EMR) and a reasonably recent echocardiogram prior to surgery. Also appears to be experiencing a pretty dramatic acute decrease in renal function that needs to be sorted out before surgery as well if possible History Surgery Operation Date: 09/10/25 12:55 Proposed Procedures p L4-S1 Decompression and Fusion - [place], Height/Weight Height: 5 ft 4 in Weight: 82.1 kg Allergies Allergy/AdvReac Type Severity Reaction Status Date / Time baclofen Allergy Unknown ON Verified 09/07/25 15:12 [facility] UD MED LIST buspirone [From BuSpar] AdvReac Intermediate "DIDN'T Verified 09/07/25 15:12 FEEL WELL ON IT". fluoxetine [From Prozac] AdvReac Intermediate "DIDN'T Verified 09/07/25 15:12 FEEL WELL ON IT". metformin AdvReac Intermediate ELEVATED Verified 09/07/25 15:12 RENAL FUNCTIONS Sulfa (Sulfonamide AdvReac Mild NAUSEA/OVER Verified 09/07/25 15:12 Antibiotics) 40 YEARS AGO. Medications Home Medications Medication Instructions Recorded Confirmed Last Taken aspirin 81 mg tablet,delayed 81 mg PO DAILY 09/07/21 09/07/25 09/06/25 release cholecalciferol (vitamin D3) 25 25 mcg PO DAILY 09/07/21 09/07/25 09/06/25 mcg (1,000 unit) capsule citalopram 20 mg tablet (Celexa) 20 mg PO DAILY 09/07/21 09/07/25 09/06/25 losartan 100 mg tablet 100 mg PO DAILY 09/07/21 09/07/25 09/06/25 acetaminophen 500 mg tablet 1,000 mg PO Q6H PRN PAIN/FEVER 09/07/25 09/07/25 Unknown (Tylenol Extra Strength) allopurinol 100 mg tablet 100 mg PO QAM 09/07/25 09/07/25 09/06/25 amlodipine 5 mg tablet 5 mg PO QPM 09/07/25 09/07/25 09/06/25 ammonium lactate 12 % topical cream 1 applic topical DAILY 09/07/25 09/07/25 09/06/25 cyanocobalamin (vitamin B-12) 1,000 mcg PO DAILY 09/07/25 09/07/25 09/06/25 1,000 mcg tablet (Vitamin B-12) docusate sodium 100 mg capsule 100 mg PO HS 09/07/25 09/07/25 09/06/25 gabapentin 400 mg capsule 400 mg PO QID 09/07/25 09/07/25 09/06/25 melatonin 3 mg disintegrating 3 mg PO HS 09/07/25 09/07/25 09/06/25 tablet nitroglycerin 0.4 mg sublingual 0.4 mg sublingual DIRECTED PRN 09/07/25 09/07/25 Unknown tablet (Nitrostat) Chest Pain omega-3 fatty acids 1,000 mg 1,000 mg PO DAILY 09/07/25 09/07/25 09/06/25 capsule omeprazole 20 mg capsule,delayed 20 mg PO QAM 09/07/25 09/07/25 09/06/25 release polyvinyl alcohol-povidone (PF) 1 drp OPB DIRECTED PRN Dry Eyes 09/07/25 09/07/25 Unknown 1.4 %-0.6 % eye drops in a dropperette (Refresh Classic (PF)) prednisone 10 mg tablet 10 mg PO DIRECTED 09/07/25 09/07/25 09/06/25 LAST DAY OF 30 MG rosuvastatin 5 mg tablet 5 mg PO QAM 09/07/25 09/07/25 09/06/25 semaglutide 1 mg/dose (4 mg/3 mL) 1 mg subcut WK 09/07/25 09/07/25 08/31/25 subcutaneous pen injector (Ozempic) Active Medications Generic Name Dose Route Start Last Admin Trade Name Freq PRN Reason Stop Dose Admin Acetaminophen 650 mg 09/07/25 19:09 09/09/25 06:03 Acetaminophen 325 Mg Tab PO 10/07/25 19:08 650 mg Q4H PRN Administration Pain or Fever Allopurinol 100 mg 09/08/25 09:00 09/08/25 08:54 Allopurinol 100 Mg Tab PO 10/08/25 08:59 100 mg QAM FREDI Administration Amlodipine Besylate 5 mg 09/07/25 21:00 09/08/25 21:05 Amlodipine Besylate 5 Mg Tab PO 10/07/25 20:59 5 mg QPM FREDI Administration Aspirin 81 mg 09/08/25 09:00 09/08/25 08:54 Aspirin 81 Mg Ectab PO 10/08/25 08:59 81 mg DAILY FREDI Administration Citalopram Hydrobromide 20 mg 09/08/25 09:00 09/08/25 08:54 Citalopram 20 Mg Tab PO 10/08/25 08:59 20 mg DAILY FREDI Administration Cyanocobalamin 1,000 mcg 09/08/25 09:00 09/08/25 08:54 Cyanocobalamin (B-12) 500 Mcg Tablet PO 10/08/25 08:59 1,000 mcg DAILY FREDI Administration Docusate Sodium 100 mg 09/07/25 21:00 09/08/25 21:05 Docusate Sodium 100 Mg Cap PO 10/07/25 20:59 100 mg HS FREDI Administration Gabapentin 400 mg 09/07/25 19:09 09/08/25 21:05 Gabapentin 400 Mg Cap PO 10/07/25 19:08 400 mg QID FREDI Administration Heparin Sodium (Porcine) 5,000 units 09/07/25 22:00 09/08/25 06:04 Heparin Sod 5,000 Unit/0.5 Ml Vial SQ 10/07/25 21:59 5,000 units Q8 FREDI Administration Hydromorphone HCl 1 mg 09/08/25 11:03 09/08/25 13:17 Hydromorphone Inj 1 Mg/Ml Syringe IV 09/22/25 11:02 1 mg Q6H PRN Administration Breakthrough Pain Insulin Aspart 0 units 09/07/25 21:00 09/08/25 21:05 Insulin Aspart Per Unit Charge SC 10/07/25 20:59 2 units ACHS FREDI Administration Lactic Acid 1 gm 09/08/25 09:00 09/08/25 08:55 Ammonium Lactate 12% Lotion 225 Gm Btl EXT 10/08/25 08:59 Not Given DAILY FREDI Losartan Potassium 100 mg 09/08/25 09:00 09/08/25 08:54 Losartan Potassium 50 Mg Tab PO 10/08/25 08:59 100 mg DAILY FREDI Administration Melatonin 3 mg 09/07/25 21:00 09/08/25 21:05 Melatonin 3 Mg Tab PO 10/07/25 20:59 3 mg HS FREDI Administration Morphine Sulfate 2 mg 09/08/25 11:02 11/17/25 18:18 Morphine Sulfate 2 Mg/Ml Carp IV 09/22/25 11:01 2 mg Q4H PRN Administration Severe Pain (Scale 7, 8, 9,10) Oxycodone HCl 5 mg 09/08/25 11:03 09/08/25 17:09 Oxycodone Hcl Ir 5 Mg Tab (Immediate Release) PO 09/22/25 11:02 5 mg Q4H PRN Administration Mild-Mod Pain (Scale 1-6) Pantoprazole Sodium 40 mg 09/08/25 09:00 09/08/25 08:54 Pantoprazole 40 Mg Tab PO 10/08/25 08:59 40 mg QAM FREDI Administration Rosuvastatin Calcium 5 mg 09/08/25 09:00 09/08/25 08:54 Rosuvastatin Calcium 5 Mg Tab PO 10/08/25 08:59 5 mg QAM FREDI Administration Vitamin D 25 mcg 09/08/25 09:00 09/08/25 08:54 Cholecalciferol 25 Mcg (1000 Units) Tab PO 10/08/25 08:59 25 mcg DAILY FREDI Administration Past Medical History Medical History (Updated 09/09/25 @ 07:56 by Brody Aguilar MD) CKD (chronic kidney disease) CAD (coronary artery disease) Anxiety Gout Diabetes mellitus Hypertension Renal mass Multilevel lumbosacral spondylosis with radiculopathy Past Surgical History Surgical History History of heart artery stent History of shoulder surgery History of carpal tunnel release History of cataract surgery Social History Smoking Status: Former smoker Hx Alcohol Use: No Hx Substance Use: No Physical Exam Vital Signs Last Vital Signs Temp 36.6 C 09/09/25 07:37 Pulse 73 09/09/25 07:37 Resp 16 09/09/25 07:37 BP 130/72 09/09/25 07:37 Pulse Ox 93 09/09/25 07:37 O2 Del Method Room Air 09/09/25 07:37 Testing Laboratory Results 09/09/25 06:40 09/09/25 06:40 PT 9.8 Seconds (9.0-12.0) 09/07/25 10:09 INR 0.9 (0.9-1.1) 09/07/25 10:09 Hemoglobin A1c 6.2 % (4.5-5.6) H 09/08/25 05:37 Urine Color Yellow 09/07/25 13:27 Urine Appearance Clear (Clear) 09/07/25 13:27 Urine pH 7.5 (4.5-7.5) 09/07/25 13:27 Ur Specific [place] 1.021 (1.000-1.030) 09/07/25 13:27 Urine Protein 2+ (Negative) H 09/07/25 13:27 Urine Glucose (UA) Negative (Negative) 09/07/25 13:27 Urine Ketones Negative (Negative) 09/07/25 13:27 Urine Nitrite Negative (Negative) 09/07/25 13:27 Ur Leukocyte Esterase Negative (Negative) 09/07/25 13:27 Urine WBC (Auto) 0-5 /hpf (0-5) 09/07/25 13:27 Urine RBC (Auto) 0-2 /hpf (0-2) 09/07/25 13:27 U Hyaline Cast (Auto) 0-2 /lpf (0-2) 09/07/25 13:27 U Epithel Cells (Auto) 0-2 /hpf (0-2) 09/07/25 13:27 Urine Bacteria (Auto) None Seen (None Seen) 09/07/25 13:27 09/09/25 09/08/25 07:49 20:20 POC Glucose 121 H 173 H Electrocardiogram Date: 09/07/25 Findings: + NSR @ (75 with 1st degree AV block) and + poor R wave progression Chest X-Ray Date: 09/07/25 Findings: + NAD and + cardiomegaly
--- NOTE | 2025-09-09 08:12 | Orthopedic Progress Note ---
Date of Service September 09, 2025 Assessment & Plan (1) Two-level lumbosacral spondylosis with radiculopathy: Plan: Patient will be made n.p.o. after midnight. Will plan for surgery tomorrow decompression fusion L4-S1. Admission and Anticipated Discharge Date Admission Date: September 07, 2025 Subjective Patient continues to have severe left leg pain and inability ambulate markedly uncomfortable. She is anxious for surgery tomorrow. Physical Exam Physical Exam: Patient is currently in bed no obvious distress. Otherwise exam unchanged. Results & Data Vital Signs (Past 12 Hours) Vital Signs Temp Pulse Resp BP Pulse Ox O2 Del Method 09/09/25 07:37 36.6 C 73 16 130/72 93 Room Air 09/08/25 21:57 36.5 C 78 18 149/73 H 94 Room Air 09/08/25 21:55 Room Air 09/08/25 21:33 Room Air
[2025-09-09] MEDS: PERFLUTREN LIPID MICROSPHERE (DEFINITY) IV ONE (10:50)
--- NOTE | 2025-09-09 11:14 | Hospitalist Progress Note ---
<Statement entered by Savage Lowry, DO - 09/09/25 12:57> I have seen and examined the patient and have discussed the case with the advance practice provider. I have reviewed the advanced practitioner's documentation, and I agree with, and take responsibility for that plan of care. Patient overall doing well. Pain is fairly well-controlled. Patient with chronic renal failure, creatinine increased today, suspect this is due to possible mild contrast-induced nephropathy due to recent imaging as well as her significant hypertension when she presented. Blood pressure now much better controlled IV hydration and monitor renal function Hold losartan in the setting of acute on chronic renal failure. Renal lesions noted on imaging not contributing to her renal dysfunction, most likely cysts, can be followed up with urology outpatient after her acute hospital admission. Echocardiogram at the request of anesthesia, patient without any cardiac complaints at this time Other laboratory studies stable Patient medically maximized for anticipated orthopedic spine surgery tomorrow pending echocardiogram report I spent a total of 20 minutes coordinating, documenting, and providing care for this patient excluding time spent by another provider/QHP. Date of Service September 09, 2025 Assessment & Plan (1) Intractable low back pain: (2) Multilevel lumbosacral spondylosis with radiculopathy: (3) Hypertensive urgency: (4) Acute kidney injury superimposed on CKD: Plan Patient is an 89-year-old female with past medical history significant for type 2 diabetes, dyslipidemia, gout, hypercholesterolemia, uncomplicated asthma, hypertension, CAD s/p stenting, GERD, CKD stage IV, degenerative disc disease, anemia of chronic renal failure, history of squamous cell carcinoma and depression with anxiety who presented to the ED on 09/07/2025 with c/o intractable low back pain with radiation down the LLE. 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 Has trialed series of spinal injections and oral corticosteroid courses w/o significant relief. Lumbar spine CT: severe disc space narrowing and partial bony fusion at L2-L3, severe disc space narrowing seen at L1-L2 with endplate sclerosis, moderate to severe disc space narrowing noted at L3-L4, mild central canal stenosis at L2- L3, left posterolateral disc extrusion is suggested at L4-L5 causing significant central canal stenosis, bilateral neural foraminal narrowing at L4-L5. Lumbar spine MRI: multilevel degenerative changes yielding marked spinal canal and foraminal stenoses, facet arthropathy changes and joint effusions with additional likely interspinous bursitis L4-L5. Intractable low back pain Multilevel lumbar spondylosis with radiculopathy Imaging findings as per above. Appreciate ortho spine consult, discussed injections vs surgical intervention >> pt opted for surgical intervention. Tentatively scheduled for lumbar decompression and fusion at L4-S1 tomorrow, 09/10, with Dr. De Dios. Holding ASA and SQ heparin for now in anticipation of surgery. NPO at midnight. Continue PRN analgesia. Appreciate postop PT/OT evals. Pt currently lives with her son >> depending on postop course, may benefit from SNF vs home. HTN urgency Improved s/p IV labetalol in addition to home antiHTN reg. Continue losartan and Norvasc with routine BP checks. Incidental imaging findings 1. Significantly asymmetric soft tissue density w/in the right breast as compared to the left (noted on CTAP). -Recommend nonemergent mammography vs breast US on OP basis. -Pt with history of dense breast tissue. No prior abnormal mammograms or breast US findings per pt. 2. 1.9 cm indeterminate and possibly enhancing lesion in the lower pole of the l eft kidney seen on CTAP. -Noted as possible hemorrhagic cyst on lumbar spine MRI. -Renal neoplasm cannot be excluded per CTAP impression >> urology was consulted for such. 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 -Recommend OP renal US for further evaluation. SEBASTIAN superimposed on CKD stage IV Baseline creatinine 1.6-2 since September 2021 per chart review. Most recent OP creatinine = 2 as of 08/25/2025. Slight uptrend in creatinine overnight suggestive of SEBASTIAN, suspect contrast- induced nephropathy (s/p CTAP with con and lumbar spine CT with con on 09/07). IVF ordered, follow repeat renal function testing >> suspect improvement with IV F. 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 CC diet. Continue to monitor BSG checks ACHS. History of CAD s/p stenting S/p PCI to the LAD in 2007, continue ASA and statin. Had negative nuclear stress testing in April 2018. RCRI score = 3, 10% risk of major cardiac event >> d/w pt, accepting of such and wishing to proceed with above surgery. Anesthesia requesting updated TTE prior to surgery, ordered and pending. Other chronic medical conditions: Gout - Continue allopurinol. GERD - Continue PPI. HLD - Continue statin as per above. Depression with anxiety - Continue citalopram. DVT Prophylaxis: SCDs/TEDs, ASA and SQ heparin on hold as per above in anticipation for procedure. Code Status: FULL CODE PCP: Taina Queen DO Disposition: Dispo pending postop course >> home vs SNF, pt currently living with her son as per above. Patient seen in collaboration with Dr. Lowry. Please see addendum. I spent a total of 40 minutes coordinating, documenting, and providing care for this patient excluding time spent in the performance of separately billed ser vices or time spent by another provider/QHP. This included personally reviewing all current laboratories and imaging studies, medical reconciliation, outpatient chart review and discussion with specialists. This chart was completed in part utilizing Speech Voice Recognition Software. Grammatical errors, random word insertions, pronoun errors, and incomplete sentences are an occasional consequence of this system due to software limitations, ambient noise, and hardware issues. Any formal questions or concerns about the content, text, or information contained within the body of this dictation should be directly addressed to the provider for clarification. Admission and Anticipated Discharge Date Admission Date: September 07, 2025 Subjective Patient seen and examined in room N387-2. Still with significant lower back pain with radiation down the LLE. Plan for OR tomorrow with Dr. De Dios. No other major complaints. Would like to take a shower and brush her teeth. Review of Systems Review of Systems: At least ten systems reviewed and negative, except as noted in the subjective section. Physical Exam Physical Exam: General: Elderly F. NAD, laying down in bed. A&Ox3, conversing appropriately. HEENT: Normocephalic, atraumatic. External ear and nose normal, oropharynx normal. Respiratory: Normal respiratory effort, CTAB. Cardiovascular: RRR, no BLE edema. Abdomen/GI: Active bowel sounds, soft, nondistended, nontender to palpation in all quadrants. Extremities/Musculoskeletal: No cyanosis or clubbing. Limited LLE mobility 2/2 pain. Neurologic: No overt focal deficits, CN's II-XI not formally tested but appear grossly intact bilaterally. Results & Data Results & Data Vital Signs (Past 12 Hours) Vital Signs Temp Pulse Resp BP Pulse Ox O2 Del Method 09/09/25 07:37 36.6 C 73 16 130/72 93 Room Air Laboratory Results Short CBC 09/09/25 Range/Units 06:40 WBC 8.50 (4.8-10.8) K/ul Hgb 10.4 L (12.0-16.0) g/dL Hct 32.6 L (37.0-47.0) % Plt Count 191 (130-400) K/uL BMP 09/09/25 06:40 Sodium 136 Potassium 4.6 Chloride 100 Carbon Dioxide 28 BUN 60 H Creatinine 2.84 H D Glucose 127 H Calcium 8.7
[2025-09-09] MEDS: SODIUM CHLORIDE 0.9% 1,000 ML IV SCH (11:37)
--- NOTE | 2025-09-09 13:16 | XCELERA ---
[id number]
[2025-09-10] MEDS ORDERED: Nursing to Pharmacy Communication SCH ×2 (04:45→13:15)
[2025-09-10] MEDS: INSULIN ASPART PER UNIT CHARGE SC SCH ×2 (05:55→16:47)
[2025-09-10 07:40] LABS: Hematocrit (blood only) 31.3 % (37.0-47.0); Hemoglobin 10.3 g/dL (12.0-16.0); Mean Corpuscular Hemoglobin 32.8 pg (25.0-34.0); Mean Corpuscular Volume 99.7 fL (80.0-100.0); Platelet Count 186 K/uL (130-400); RDW Standard Deviation 51.0 fL (36.4-46.3); Red Blood Count 3.14 M/uL (4.20-5.40); White Blood Count 7.62 K/ul (4.8-10.8)
[2025-09-10 08:20] LABS: Anion Gap 5 (3-11); Blood Urea Nitrogen 57 mg/dl (6-23); Calcium 8.9 mg/dl (8.6-10.3); Carbon Dioxide 29 mmol/L (21-32); Chloride 104 mmol/L (98-107); Creatinine Clr Calc Pharmacy 16.0 ml/min; Glucose 112 mg/dl (70-99(Fasting)); Sodium 138 mmol/L (136-145)
--- NOTE | 2025-09-10 11:54 | Orthopedic Progress Note ---
Date of Service September 10, 2025 Assessment & Plan (1) Acute kidney injury superimposed on CKD: Plan: At this time in light of her kidney function and after discussions with anesthesia we feel waiting another 24 to 48 hours would be ideal before placing her under under anesthesia. I explained this to the patient and the daughter. We will cancel her surgery today and plan for first case Monday morning. Patient or stands and agrees. Admission and Anticipated Discharge Date Admission Date: September 07, 2025 Subjective Patient continues to have back and left leg pain Physical Exam Physical Exam: Patient is obvious distress. She is currently in bed. Results & Data Vital Signs (Past 12 Hours) Vital Signs Temp Pulse Resp BP Pulse Ox O2 Del Method 09/10/25 07:51 Room Air 09/10/25 07:06 37.0 C 85 16 140/76 91 Room Air
--- NOTE | 2025-09-10 14:09 | Hospitalist Progress Note ---
Date of Service September 10, 2025 Assessment & Plan (1) Intractable low back pain: (2) Multilevel lumbosacral spondylosis with radiculopathy: (3) Hypertensive urgency: (4) Acute kidney injury superimposed on CKD: Plan Patient is an 89-year-old female with past medical history significant for type 2 diabetes, dyslipidemia, gout, hypercholesterolemia, uncomplicated asthma, hypertension, CAD s/p stenting, GERD, CKD stage IV, degenerative disc disease, anemia of chronic renal failure, history of squamous cell carcinoma and depression with anxiety who presented to the ED on 09/07/2025 with c/o intractable low back pain with radiation down the LLE. 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 Has trialed series of spinal injections and oral corticosteroid courses w/o significant relief. Lumbar spine CT: severe disc space narrowing and partial bony fusion at L2-L3, severe disc space narrowing seen at L1-L2 with endplate sclerosis, moderate to severe disc space narrowing noted at L3-L4, mild central canal stenosis at L2- L3, left posterolateral disc extrusion is suggested at L4-L5 causing significant central canal stenosis, bilateral neural foraminal narrowing at L4-L5. Lumbar spine MRI: multilevel degenerative changes yielding marked spinal canal and foraminal stenoses, facet arthropathy changes and joint effusions with additional likely interspinous bursitis L4-L5. Intractable low back pain Multilevel lumbar spondylosis with radiculopathy Imaging findings as per above. Appreciate ortho spine consult, discussed injections vs surgical intervention >> pt opted for surgical intervention. Tentatively scheduled for lumbar decompression and fusion at L4-S1 ,09/10, with Dr. De Dios; however in light of her current renal function anesthesia prefers to wait an additional 1-2 days for close monitoring Holding ASA and SQ heparin for now in anticipation of surgery. continue PRN analgesia. Appreciate postop PT/OT evals. Pt currently lives with her son >> depending on postop course, may benefit from SNF vs home. HTN urgency Improved s/p IV labetalol in addition to home antiHTN reg. Continue Norvasc with routine BP checks. Losartan currently on hold due to SEBASTIAN/CKJD Incidental imaging findings 1. Significantly asymmetric soft tissue density w/in the right breast as compared to the left (noted on CTAP). -Recommend nonemergent mammography vs breast US on OP basis. -Pt with history of dense breast tissue. No prior abnormal mammograms or breast US findings per pt. 2. 1.9 cm indeterminate and possibly enhancing lesion in the lower pole of the left kidney seen on CTAP. -Noted as possible hemorrhagic cyst on lumbar spine MRI. -Renal neoplasm cannot be excluded per CTAP impression >> urology was consu lted for such. 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 -Recommend OP renal US for further evaluation. SEBASTIAN superimposed on CKD stage IV Baseline creatinine 1.6-2 since September 2021 per chart review. Most recent OP creatinine = 2 as of 08/25/2025. Slight uptrend in creatinine overnight suggestive of SEBASTIAN, suspect contrast- induced nephropathy (s/p CTAP with con and lumbar spine CT with con on 09/07). 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 CC diet. Continue to monitor BSG checks ACHS. History of CAD s/p stenting S/p PCI to the LAD in 2007, continue ASA and statin. Had negative nuclear stress testing in April 2018. RCRI score = 3, 10% risk of major cardiac event >> d/w pt, accepting of such and wishing to proceed with above surgery. Echo EF 65-70%, grade diastolic dysfunction, trace AR, mild pulm regurg, normal rvsp Other chronic medical conditions: Gout - Continue allopurinol. GERD - Continue PPI. HLD - Continue statin as per above. Depression with anxiety - Continue citalopram. DVT Prophylaxis: SCDs/TEDs, ASA and SQ heparin on hold as per above in anticipation for procedure. Code Status: FULL CODE PCP: Taina Queen DO Disposition: Dispo pending postop course >> home vs SNF, pt currently living with her son as per above. Patient seen in collaboration with Dr. Greene. Please see addendum. I spent a total of 46 minutes coordinating, documenting, and providing care for this patient excluding time spent in the performance of separately billed services or time spent by another provider/QHP. This included personally reviewing all current laboratories and imaging studies, medical reconciliation, outpatient chart review and discussion with specialists. Admission and Anticipated Discharge Date Admission Date: September 07, 2025 Supervising Physician Co-Signing Physician Notes Pt seen and examined by me, care coordinated w/ B. UZIEL Earl, pls refer to her note above for further detail. Pt is lying in bed in NAD. She is awake, alert, answers appropriately. Denies any fever, chills, chest pain, shortness of breath. Denies abd. pain, n/v. Only complains of back pain radiating to her leg. Heart sounds regular. Lungs CTAB. Abdomen soft, nontender. Pt is able to move extremities. Plan was to have spinal surgery with Dr. De Dios today but because of her creatinine, surgery now postponed. She does have hx of CKD. Today Cr improved to 2.5, down from 2.8 yesterday. losartan on hold. cont. to monitor Cr. Surgery likely on Monday. MD Jc Subjective Pt was seen and examined in room 387-2. She complains of back pain. She is ready to have her surgery later today. She reports chronic constipation and no BM in the last 2 days. Denies f/c/s, chest pain, sob, n/v. She remains NPO but complains of dry mouth. Review of Systems Review of Systems: All systems reviewed & are unremarkable except as noted in HPI & below Physical Exam Physical Exam: Gen: WD/WN, appears age, lying in bed, NAD, A&O x3 HEENT: Normocephalic, atraumatic, conjunctivae moist, sclerae anicteric, mucous membranes moist. Lung: Clear to Auscultation bilaterally, no wheezes/rales/rhonchi Heart: Regular rate, regular rhythm, no murmurs, rubs, or gallops Abdomen: Soft, NT, ND +BS x 4 Extremities: No edema Skin: Warm, no rash, negative turgor. Results & Data Results & Data Vital Signs (Past 12 Hours) Vital Signs Temp Pulse Resp BP Pulse Ox O2 Del Method 09/10/25 07:51 Room Air 09/10/25 07:06 37.0 C 85 16 140/76 91 Room Air Laboratory Results I have independently reviewed and interpreted patient's cbc, bmp Medications Administered Current Inpatient Medications Acetaminophen (Acetaminophen 325 Mg Tab) 650 mg PO Q4H PRN PRN Reason: Pain or Fever Stop: 10/07/25 19:08 Last Admin: 09/10/25 04:35 Dose: 650 mg Allopurinol (Allopurinol 100 Mg Tab) 100 mg PO QAM FREDI Stop: 10/08/25 08:59 Last Admin: 09/10/25 07:41 Dose: 100 mg Amlodipine Besylate (Amlodipine Besylate 5 Mg Tab) 5 mg PO QPM FREDI Stop: 10/07/25 20:59 Last Admin: 09/09/25 21:37 Dose: 5 mg Artificial Tears (Artificial Tears) 1 drops OP BID PRN PRN Reason: Dry Eyes Stop: 10/07/25 19:19 Aspirin (Aspirin 81 Mg Ectab) 81 mg PO DAILY FREDI Stop: 10/08/25 08:59 Last Admin: 09/08/25 08:54 Dose: 81 mg Citalopram Hydrobromide (Citalopram 20 Mg Tab) 20 mg PO DAILY [facility] Stop: 10/08/25 08:59 Last Admin: 09/10/25 07:40 Dose: 20 mg Cyanocobalamin (Cyanocobalamin (B-12) 500 Mcg Tablet) 1,000 mcg PO DAILY FREDI Stop: 10/08/25 08:59 Last Admin: 09/10/25 07:40 Dose: 1,000 mcg Dextrose (Dextrose 50% 50 Ml Syringe) 25 - 50 ml IV UD PRN; Protocol PRN Reason: Hypoglycemia Protocol Stop: 10/07/25 19:08 Docusate Sodium (Docusate Sodium 100 Mg Cap) 100 mg PO HS [facility] Stop: 10/07/25 20:59 Last Admin: 09/09/25 21:37 Dose: 100 mg Gabapentin (Gabapentin 400 Mg Cap) 400 mg PO QID FREDI Stop: 10/07/25 19:08 Last Admin: 09/10/25 12:48 Dose: 400 mg Glucagon (Glucagon For Inj 1 Mg Vial) 1 mg SQ UD PRN; Protocol PRN Reason: Hypoglycemia Protocol Stop: 10/07/25 19:08 Glucose (Glucose 40% Gel 15 Gm Tube) 15 - 30 gm PO UD PRN; Protocol PRN Reason: Hypoglycemia Protocol Stop: 10/07/25 19:08 Glucose (Glucose 10 Tab/Tube) 4 - 8 tab PO UD PRN; Protocol PRN Reason: Hypoglycemia Protocol Stop: 10/07/25 19:08 Heparin Sodium (Porcine) (Heparin Sod 5,000 Unit/0.5 Ml Vial) 5,000 units SQ Q8 [facility] Stop: 10/07/25 21:59 Last Admin: 09/08/25 06:04 Dose: 5,000 units Hydromorphone HCl (Hydromorphone Inj 1 Mg/Ml Syringe) 1 mg IV Q6H PRN PRN Reason: Breakthrough Pain Stop: 09/22/25 11:02 Last Admin: 09/10/25 11:11 Dose: 1 mg Sodium Chloride (Nss) 1,000 mls @ 100 mls/hr IV .Q10H [facility] Stop: 09/12/25 09:29 Last Admin: 09/10/25 05:13 Dose: 100 mls/hr Insulin Aspart (Insulin Aspart Per Unit Charge) 0 units SC ACHS [facility] Stop: 10/10/25 16:29 Labetalol HCl (Labetalol Hcl Iv 5 Mg/Ml 20ml) 10 mg IV Q4H PRN PRN Reason: Hypertension Stop: 10/07/25 19:08 Lactic Acid (Ammonium Lactate 12% Lotion 225 Gm Btl) 1 gm EXT DAILY [facility] Stop: 10/08/25 08:59 Last Admin: 09/10/25 07:42 Dose: Not Given Losartan Potassium (Losartan Potassium 50 Mg Tab) 100 mg PO DAILY [facility] Stop: 10/08/25 08:59 Last Admin: 09/09/25 08:36 Dose: 100 mg Melatonin (Melatonin 3 Mg Tab) 3 mg PO HS [facility] Stop: 10/07/25 20:59 Last Admin: 09/09/25 21:37 Dose: 3 mg Miscellaneous (Carbohydrates For Hypoglycemia ) 15 - 30 gm PO UD PRN PRN Reason: Hypoglycemia Protocol Stop: 10/07/25 19:08 Morphine Sulfate (Morphine Sulfate 2 Mg/Ml Carp) 2 mg IV Q4H PRN PRN Reason: Severe Pain (Scale 7, 8, 9,10) Stop: 09/22/25 11:01 Last Admin: 09/10/25 07:46 Dose: 2 mg Nitroglycerin (Nitroglycerin Sl 0.4 Mg/Tab Tab) 0.4 mg SL UD PRN PRN Reason: Chest Pain Stop: 10/07/25 19:08 Oxycodone HCl (Oxycodone Hcl Ir 5 Mg Tab (Immediate Release)) 5 mg PO Q4H PRN PRN Reason: Mild-Mod Pain (Scale 1-6) Stop: 09/22/25 11:02 Last Admin: 09/10/25 13:00 Dose: 5 mg Pantoprazole Sodium (Pantoprazole 40 Mg Tab) 40 mg PO QAM [facility] Stop: 10/08/25 08:59 Last Admin: 09/10/25 07:40 Dose: 40 mg Polyethylene Glycol (Polyethylene (Miralax) 17 Gm Pack) 17 gm PO DAILY PRN PRN Reason: Constipation Stop: 10/07/25 19:08 Rosuvastatin Calcium (Rosuvastatin Calcium 5 Mg Tab) 5 mg PO [facility] Stop: 10/08/25 08:59 Last Admin: 09/10/25 07:40 Dose: 5 mg Vitamin D (Cholecalciferol 25 Mcg (1000 Units) Tab) 25 mcg PO DAILY [facility] Stop: 10/08/25 08:59 Last Admin: 09/10/25 07:40 Dose: 25 mcg
[2025-09-11 07:27] LABS: Hematocrit (blood only) 29.3 % (37.0-47.0); Hemoglobin 9.5 g/dL (12.0-16.0); Mean Corpuscular Hemoglobin 32.4 pg (25.0-34.0); Mean Corpuscular Volume 100.0 fL (80.0-100.0); Platelet Count 158 K/uL (130-400); RDW Standard Deviation 51.8 fL (36.4-46.3); Red Blood Count 2.93 M/uL (4.20-5.40); White Blood Count 6.36 K/ul (4.8-10.8)
[2025-09-11 07:57] LABS: Anion Gap 4.0 (3-11); Blood Urea Nitrogen 44.0 mg/dl (6-23); Calcium 8.6 mg/dl (8.6-10.3); Carbon Dioxide 29.0 mmol/L (21-32); Chloride 105.0 mmol/L (98-107); Creatinine Clr Calc Pharmacy 21.1 ml/min; Glucose 106.0 mg/dl (70-99(Fasting)); Magnesium 2.1 mg/dl (1.7-2.4); Potassium 4.5 mmol/L (3.5-5.1); Sodium 138.0 mmol/L (136-145)
[2025-09-11] MEDS: DOCUSATE SODIUM/SENNA 50/8.6MG TAB PO SCH (08:53)
[2025-09-11] MEDS: POLYETHYLENE (MIRALAX) 17 GM PACK PO SCH (08:53)
--- NOTE | 2025-09-11 13:50 | Hospitalist Progress Note ---
Date of Service September 11, 2025 Assessment & Plan (1) Intractable low back pain: (2) Multilevel lumbosacral spondylosis with radiculopathy: (3) Hypertensive urgency: (4) Acute kidney injury superimposed on CKD: Plan Patient is an 89-year-old female with past medical history significant for type 2 diabetes, dyslipidemia, gout, hypercholesterolemia, uncomplicated asthma, hypertension, CAD s/p stenting, GERD, CKD stage IV, degenerative disc disease, anemia of chronic renal failure, history of squamous cell carcinoma and depression with anxiety who presented to the ED on 09/07/2025 with c/o intractable low back pain with radiation down the LLE. Ongoing for several rowan hs with acute worsening x 3-4 days [employer]. Has trialed series of spinal injections and oral corticosteroid courses w/o significant relief. Lumbar spine CT: severe disc space narrowing and partial bony fusion at L2-L3, severe disc space narrowing seen at L1-L2 with endplate sclerosis, moderate to severe disc space narrowing noted at L3-L4, mild central canal stenosis at L2- L3, left posterolateral disc extrusion is suggested at L4-L5 causing significant central canal stenosis, bilateral neural foraminal narrowing at L4-L5. Lumbar spine MRI: multilevel degenerative changes yielding marked spinal canal and foraminal stenoses, facet arthropathy changes and joint effusions with additional likely interspinous bursitis L4-L5. Intractable low back pain Multilevel lumbar spondylosis with radiculopathy Imaging findings as per above. Appreciate ortho spine consult, discussed injections vs surgical intervention >> pt opted for surgical intervention. Tentatively scheduled for lumbar decompression and fusion at L4-S1 ,09/11, with Dr. De Dios; Surgery delayed due to renal dysfunction Holding ASA and SQ heparin for now in anticipation of surgery. continue PRN analgesia. Appreciate postop PT/OT evals. Pt currently lives with her son >> depending on postop course, may benefit from SNF vs home. HTN urgency Improved s/p IV labetalol in addition to home antiHTN reg. Continue Norvasc with routine BP checks. Losartan currently on hold due to SEBASTIAN/CKJD Incidental imaging findings 1. Significantly asymmetric soft tissue density w/in the right breast as compared to the left (noted on CTAP). -Recommend nonemergent mammography vs breast US on OP basis. -Pt with history of dense breast tissue. No prior abnormal mammograms or breast US findings per pt. 2. 1.9 cm indeterminate and possibly enhancing lesion in the lower pole of the left kidney seen on CTAP. -Noted as possible hemorrhagic cyst on lumbar spine MRI. -Renal neoplasm cannot be excluded per CTAP impression >> urology was consulted for such. 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 -Recommend OP renal US for further evaluation. SEBASTIAN superimposed on CKD stage IV Baseline creatinine 1.6-2 since September 2021 per chart review. Most recent OP creatinine = 2 as of 08/25/2025. Cr peaked to 2.8, felt 2/2 contrast/intake s/p IVF, renal function has returned for baseline DM type II SSI protocol while IP, on Ozempic [employer]. CC diet. Continue to monitor BSG checks ACHS. History of CAD s/p stenting S/p PCI to the LAD in 2007, continue ASA and statin. Had negative nuclear stress testing in April 2018. RCRI score = 3, 10% risk of major cardiac event >> d/w pt, accepting of such and wishing to proceed with above surgery. Echo EF 65-70%, grade diastolic dysfunction, trace AR, mild pulm regurg, normal rvsp Other chronic medical conditions: Gout - Continue allopurinol. GERD - Continue PPI. HLD - Continue statin as per above. Depression with anxiety - Continue citalopram. DVT Prophylaxis: SCDs/TEDs, ASA and SQ heparin on hold as per above in anticipation for procedure. Code Status: FULL CODE PCP: Taina Queen DO Disposition: Dispo pending postop course >> home vs SNF, pt currently living with her son as per above. Patient seen in collaboration with Dr. Greene. Please see addendum. I spent a total of 44 minutes coordinating, documenting, and providing care for this patient excluding time spent in the performance of separately billed services or time spent by another provider/QHP. This included personally reviewing all current laboratories and imaging studies, medical reconciliation, outpatient chart review and discussion with specialists. Admission and Anticipated Discharge Date Admission Date: September 07, 2025 Supervising Physician Co-Signing Physician Notes Pt seen and examined by me, care coordinated w/ BZoe Earl PA-C, pls refer to her note above for further detail. Pt is lying in bed in NAD. She is awake, alert, answers appropriately. Denies any fever, chills, chest pain, shortness of breath. Denies abd. pain, n/v. Only complains of back pain radiating to her leg. Heart sounds regular. Lungs CTAB. Abdomen soft, nontender. Pt is able to move extremities. Plan is to have spinal surgery with Dr. De Dios on Monday once her creatinine improved. Today Cr down to 1.87.She does have hx of CKD. losartan on hold. cont. to monitor Cr, and BP. Pt reports constipation, will adjust bowel regimen. MD Jc Subjective Pt was seen and examined in room 387-2. Continues to have back pain. "I know this will be better after I have my surgery." She reports, "I'm not afraid of the surgery." Has not yet moved her bowels. States this isn't unusual for her, but she would like to move them before surgery. Denies f/c/s, chest pain, sob, n/v. Review of Systems Review of Systems: All systems reviewed & are unremarkable except as noted in HPI & below Physical Exam Physical Exam: Gen: WD/WN, appears age, lying in bed, NAD, A&O x3 HEENT: Normocephalic, atraumatic, conjunctivae moist, sclerae anicteric, mucous membranes moist. Lung: Clear to Auscultation bilaterally, no wheezes/rales/rhonchi Heart: Regular rate, regular rhythm, no murmurs, rubs, or gallops Abdomen: Soft, NT, ND +BS x 4 Extremities: No edema Skin: Warm, no rash, negative turgor. Results & Data Results & Data Vital Signs (Past 12 Hours) Vital Signs Temp Pulse Resp BP Pulse Ox O2 Del Method 09/11/25 07:35 Room Air 09/11/25 07:29 36.7 C 77 18 152/76 H 94 Room Air Laboratory Results I have independently reviewed and interpreted patient's cbc, bmp, mag, phos 09/11/25 09/11/25 09/11/25 Range/Units 11:36 07:50 06:59 WBC 6.36 (4.8-10.8) K/ul RBC 2.93 L (4.20-5.40) M/uL Hgb 9.5 L (12.0-16.0) g/dL Hct 29.3 L (37.0-47.0) % MCV 100.0 (80.0-100.0) fL MCH 32.4 (25.0-34.0) pg MCHC 32.4 (32.0-36.0) g/dL RDW Std Deviation 51.8 H (36.4-46.3) fL RDW Coeff of Adrianne 14.1 (11.5-14.5) % Plt Count 158 (130-400) K/uL MPV 10.1 (9.4-12.4) fL Sodium 138 (136-145) mmol/L Potassium 4.5 (3.5-5.1) mmol/L Chloride 105 (98-107) mmol/L Carbon Dioxide 29 (21-32) mmol/L Anion Gap 4 (3-11) BUN 44 H (6-23) mg/dl Creatinine 1.87 H D (0.6-1.2) mg/dl Est Cr Clr Drug Dosing 21.1 ml/min eGFR 25.41 BUN/Creatinine Ratio 23.5 H (10-20) Glucose 106 H (70-99(Fasting)) mg/dl POC Glucose 112 H 121 H (70-99) mg/dl Calcium 8.6 (8.6-10.3) mg/dl Phosphorus 4.0 (2.5-4.9) mg/dl Magnesium 2.1 (1.7-2.4) mg/dl 09/10/25 09/10/25 Range/Units 20:29 16:41 WBC (4.8-10.8) K/ul RBC (4.20-5.40) M/uL Hgb (12.0-16.0) g/dL Hct (37.0-47.0) % MCV (80.0-100.0) fL MCH (25.0-34.0) pg MCHC (32.0-36.0) g/dL RDW Std Deviation (36.4-46.3) fL RDW Coeff of Adrianne (11.5-14.5) % Plt Count (130-400) K/uL MPV (9.4-12.4) fL Sodium (136-145) mmol/L Potassium (3.5-5.1) mmol/L Chloride (98-107) mmol/L Carbon Dioxide (21-32) mmol/L Anion Gap (3-11) BUN (6-23) mg/dl Creatinine (0.6-1.2) mg/dl Est Cr Clr Drug Dosing ml/min eGFR BUN/Creatinine Ratio (10-20) Glucose (70-99(Fasting)) mg/dl POC Glucose 118 H 116 H (70-99) mg/dl Calcium (8.6-10.3) mg/dl Phosphorus (2.5-4.9) mg/dl Magnesium (1.7-2.4) mg/dl Medications Administered Current Inpatient Medications Acetaminophen (Acetaminophen 325 Mg Tab) 650 mg PO Q4H PRN PRN Reason: Pain 1-3 or Fever Stop: 10/07/25 19:08 Last Admin: 09/11/25 00:21 Dose: 650 mg Allopurinol (Allopurinol 100 Mg Tab) 100 mg PO QAM FREDI Stop: 10/08/25 08:59 Last Admin: 09/11/25 08:14 Dose: 100 mg Amlodipine Besylate (Amlodipine Besylate 5 Mg Tab) 5 mg PO QPM FREDI Stop: 10/07/25 20:59 Last Admin: 09/10/25 20:21 Dose: 5 mg Artificial Tears (Artificial Tears) 1 drops OP BID PRN PRN Reason: Dry Eyes Stop: 10/07/25 19:19 Aspirin (Aspirin 81 Mg Ectab) 81 mg PO DAILY FREDI Stop: 10/08/25 08:59 Last Admin: 09/08/25 08:54 Dose: 81 mg Citalopram Hydrobromide (Citalopram 20 Mg Tab) 20 mg PO DAILY FREDI Stop: 10/08/25 08:59 Last Admin: 09/11/25 08:14 Dose: 20 mg Cyanocobalamin (Cyanocobalamin (B-12) 500 Mcg Tablet) 1,000 mcg PO DAILY FREDI Stop: 10/08/25 08:59 Last Admin: 09/11/25 08:14 Dose: 1,000 mcg Dextrose (Dextrose 50% 50 Ml Syringe) 25 - 50 ml IV UD PRN; Protocol PRN Reason: Hypoglycemia Protocol Stop: 10/07/25 19:08 Gabapentin (Gabapentin 400 Mg Cap) 400 mg PO QID FREDI Stop: 10/07/25 19:08 Last Admin: 09/11/25 13:26 Dose: 400 mg Glucagon (Glucagon For Inj 1 Mg Vial) 1 mg SQ UD PRN; Protocol PRN Reason: Hypoglycemia Protocol Stop: 10/07/25 19:08 Glucose (Glucose 40% Gel 15 Gm Tube) 15 - 30 gm PO UD PRN; Protocol PRN Reason: Hypoglycemia Protocol Stop: 10/07/25 19:08 Glucose (Glucose 10 Tab/Tube) 4 - 8 tab PO UD PRN; Protocol PRN Reason: Hypoglycemia Protocol Stop: 10/07/25 19:08 Heparin Sodium (Porcine) (Heparin Sod 5,000 Unit/0.5 Ml Vial) 5,000 units SQ Q8 FREDI Stop: 10/07/25 21:59 Last Admin: 09/08/25 06:04 Dose: 5,000 units Cefazolin Sodium (Ancef 2000mg) 2,000 mg in 15 mls @ 3.75 mls/min IV PREOP ONE; Protocol Stop: 09/12/25 06:03 Insulin Aspart (Insulin Aspart Per Unit Charge) 0 units SC ACHS FREDI Stop: 10/10/25 16:29 Last Admin: 09/11/25 11:43 Dose: Not Given Labetalol HCl (Labetalol Hcl Iv 5 Mg/Ml 20ml) 10 mg IV Q4H PRN PRN Reason: Hypertension Stop: 10/07/25 19:08 Lactic Acid (Ammonium Lactate 12% Lotion 225 Gm Btl) 1 gm EXT DAILY FREDI Stop: 10/08/25 08:59 Last Admin: 09/11/25 08:16 Dose: 1 gm Losartan Potassium (Losartan Potassium 50 Mg Tab) 100 mg PO DAILY FREDI Stop: 10/08/25 08:59 Last Admin: 09/09/25 08:36 Dose: 100 mg Melatonin (Melatonin 3 Mg Tab) 3 mg PO HS FREDI Stop: 10/07/25 20:59 Last Admin: 09/10/25 20:21 Dose: 3 mg Miscellaneous (Carbohydrates For Hypoglycemia ) 15 - 30 gm PO UD PRN PRN Reason: Hypoglycemia Protocol Stop: 10/07/25 19:08 Morphine Sulfate (Morphine Sulfate 2 Mg/Ml Carp) 2 mg IV Q4H PRN PRN Reason: Severe Pain (Scale 7, 8, 9,10) Stop: 09/22/25 11:01 Last Admin: 09/11/25 10:44 Dose: 2 mg Nitroglycerin (Nitroglycerin Sl 0.4 Mg/Tab Tab) 0.4 mg SL UD PRN PRN Reason: Chest Pain Stop: 10/07/25 19:08 Oxycodone HCl (Oxycodone Hcl Ir 5 Mg Tab (Immediate Release)) 5 - 10 mg PO Q4H PRN PRN Reason: Mod-Sev Pain (Scale 4-10) Stop: 09/25/25 08:29 Last Admin: 09/11/25 13:25 Dose: 10 mg Pantoprazole Sodium (Pantoprazole 40 Mg Tab) 40 mg PO QAM FREDI Stop: 10/08/25 08:59 Last Admin: 09/11/25 08:14 Dose: 40 mg Polyethylene Glycol (Polyethylene (Miralax) 17 Gm Pack) 17 gm PO DAILY PRN PRN Reason: Constipation Stop: 10/07/25 19:08 Polyethylene Glycol (Polyethylene (Miralax) 17 Gm Pack) 17 gm PO DAILY FREDI Stop: 10/11/25 08:59 Last Admin: 09/11/25 08:53 Dose: 17 gm Rosuvastatin Calcium (Rosuvastatin Calcium 5 Mg Tab) 5 mg PO QAM FREDI Stop: 10/08/25 08:59 Last Admin: 09/11/25 08:14 Dose: 5 mg Senna/Docusate Sodium (Docusate Sodium/Senna 50/8.6mg Tab) 1 tab PO BID FREDI Stop: 10/11/25 08:59 Last Admin: 09/11/25 08:53 Dose: 1 tab Vitamin D (Cholecalciferol 25 Mcg (1000 Units) Tab) 25 mcg PO DAILY FREDI Stop: 10/08/25 08:59 Last Admin: 09/11/25 08:14 Dose: 25 mcg
[2025-09-11] MEDS: GLYCERIN ADULT 12 SUPP/BOX SUPP PR ONE (16:27)
[2025-09-12] MEDS: INSULIN ASPART PER UNIT CHARGE SC SCH ×2 (06:27→12:24)
[2025-09-12] MEDS ORDERED: Nursing to Pharmacy Communication SCH ×2 (06:30→12:15)
[2025-09-12] MEDS ORDERED: PROPOFOL IV EMULSION 10 MG/ML 20 ML VIAL IV ONE (07:08)
[2025-09-12] MEDS ORDERED: LIDOCAINE 2% 2 ML VIAL/AMP(20MG/ML) INFIL ONE (07:08)
[2025-09-12] MEDS ORDERED: ONDANSETRON INJ 2 MG/ML 2 ML VIAL ONE (07:08)
[2025-09-12] MEDS ORDERED: DEXAMETHASONE SOD INJ 4 MG/ML VIAL ONE (07:08)
[2025-09-12] MEDS ORDERED: ROCURONIUM BROMIDE 10 MG/ML 5 ML VIAL IV ONE ×2 (07:08→09:23)
[2025-09-12] MEDS ORDERED: PROMETHAZINE HCL 6.25 MG in SODIUM CHLORIDE 0.9% 50 ML IV PRN (07:20)
[2025-09-12] MEDS ORDERED: HYDROmorphone INJ 2 MG/ML SYR/VIAL IV PRN (07:20)
[2025-09-12] MEDS ORDERED: ATROPINE SULFATE 0.1 MG/ML 10ML SYR IV PRN (07:20)
--- NOTE | 2025-09-12 07:38 | History & Physical Bridge Note ---
Date of Service September 12, 2025 History & Physical Bridge Note I have examined the patient, reviewed the History & Physical and in the interval since the performance of the History & Physical I have noted the following changes of clinical significance: no changes noted Decompression fusion L4-S1
[2025-09-12 07:40] LABS: Anion Gap 7.0 (3-11); Calcium 8.5 mg/dl (8.6-10.3); Carbon Dioxide 27.0 mmol/L (21-32); Chloride 104.0 mmol/L (98-107); Magnesium 2.0 mg/dl (1.7-2.4); Potassium 4.4 mmol/L (3.5-5.1); Sodium 138.0 mmol/L (136-145)
[2025-09-12 07:46] LABS: Blood Urea Nitrogen 33.0 mg/dl (6-23); Creatinine Clr Calc Pharmacy 24.0 ml/min; Glucose 112.0 mg/dl (70-99(Fasting))
[2025-09-12] MEDS ORDERED: PHENYLEPHRINE HCL 10 MG/ML VIAL ONE (08:12)
[2025-09-12] MEDS: BUPIVACAINE/EPINEPHRINE 0.25% 1:200,000 30 ML VIAL ONE (08:44)
[2025-09-12] MEDS: ceFAZolin 330 MG/ML 1 GM VIAL ONE ×2 (08:47)
[2025-09-12] MEDS ORDERED: SUGAMMADEX SODIUM 200 MG/2 ML VIAL IV ONE (09:58)
[2025-09-12] MEDS: SURGICEL ABSORB HEMOSTAT 2IN X 14IN TOP ONE (10:00)
[2025-09-12] MEDS: FLOSEAL HEMOSTATIC MATRIX 10ML TOP ONE (10:05)
--- NOTE | 2025-09-12 10:08 | Fluoroscopy Report ---
FL lumbar spine 2-3V CLINICAL HISTORY: L4-S1 DECOMPRESSION/FUSION COMPARISON STUDY: None FLUOROSCOPY TIME: 18 seconds FLUOROSCOPY IMAGES: 2 EXPOSURE DOSE: 21 mGy FINDINGS: Fluoroscopy was provided for lower lumbar fusion. IMPRESSION: Intraoperative fluoroscopy. ACT 112: Negative or not required by law. Electronically signed by: John Washington M.D. 09/12/2025 10:07 AM
--- NOTE | 2025-09-12 10:14 | Operative Report ---
Post Operative Report Pre & Post Diagnosis Operation Date: 09/12/25 07:45 Pre-Op Diagnosis: #1 lumbosacral spondylosis with radiculopathy #2 lumbar spinal stenosis #3 lumbar spondylolisthesis #4 lumbar disc herniation with radiculopathy Post-Op Diagnosis: Same I identified the patient and participated in the time-out.: Yes Procedure Operation Date: 09/12/25 07:45 Actual Procedures #1 lumbar decompression bilaterally facetectomies and foraminotomies L3-L4, L4-5 L5-S1. #2 posterior spinal fusion L4-S1. #3 placed posterior instrumentation L4-S1 using camber. #4 interbody fusion L4-L5 L5-S1. #5 placement of Spira 12 x 26 mm at L4-5 and 11 x 26 mm at L5-S1. #6 placement of Koros combined with Proteus bone graft in the posterior lateral gutters and os design in the interbody space. #7 application of versa wrap of the exposed dura. Surgeon Ho De Dios, DO Sluice Tender Frank Calvillo Estimated Blood Loss 450 Findings Consistent with Post-Op Diagnosis Specimens None Indications This is an 89-year-old female who presents by manage diagnosis after having four 7 mm operative care and having marked decline in status she is here for surgical invention. Description of Procedure Patient was met with identified informed consent obtained. Patient was then taken to the operative suite underwent intubation placed in the prone position on the Lucas table atop the Clement frame. All bony prominences well-padded eyes inspected to ensure no external pressure placed upon them. This point the lumbar spine was prepped and draped in normal sterile fashion. Sharp dissection with the assistance of Bovie cautery performed down to and exposing the lamina transverse processes of L4-5 and sacral ala bilaterally. From a caudal to cephalad fashion complete laminectomy of L5 was performed including bilateral medial facetectomies and foraminotomies followed by complete laminectomy of L4 with bilateral medial facetectomies and foraminotomies as well as addressing a fragment of disc material that migrated cephalad on the left. I performed a partial laminectomy of L3 with bilateral middle facetectomies to address all subarticular stenosis. Pedicle screws were then placed in L 4 L5 and S1 levels bilaterally with assistance of fluoroscopy and appropriately sized rods contoured and placed. Preoperative transforaminal approach on the left complete discectomy of L5-S1 was performed endplates created to subcortical bleeding bone and 11 x 26 mm Spira cage tapped in position. Then proceeded to L4-L5. By way of a transforaminal approach and left complete discectomy performed. Endplates guided to subcortical mean bone and a 12 x 26 mm Spira cage tapped into posi tion. Please note all cages were packed with os design bone graft. Rods were then compressed locked into final position bilaterally. The transverse processes of L4-5 and sacral ala burred to subcortical bleeding bone. Proteus combined with Koros bone graft placed in posterolateral gutters. Versa wrap placed over the exposed dura. 15 round BRIAN drain inserted. The incision was then closed with 1 Vicryl in the fascia 2-0 Vicryl subcutaneously and 4 Monocryl for final skin closure. Steri-Strips sterile dressing placed. Patient waken taken to PACU in stable condition. Please note Frank Calvillo was present at the entire procedure and while the patient positioning complex portion of the surgery and final skin closure. I attest to the content of the Intraoperative Record and any orders documented therein. Any exceptions are noted below.
--- NOTE | 2025-09-12 10:14 | Hospitalist Progress Note ---
Date of Service September 12, 2025 Assessment & Plan (1) Intractable low back pain: (2) Multilevel lumbosacral spondylosis with radiculopathy: (3) Hypertensive urgency: (4) Acute kidney injury superimposed on CKD: Plan Patient is an 89-year-old female with past medical history significant for type 2 diabetes, dyslipidemia, gout, hypercholesterolemia, uncomplicated asthma, hypertension, CAD s/p stenting, GERD, CKD stage IV, degenerative disc disease, anemia of chronic renal failure, history of squamous cell carcinoma and depression with anxiety who presented to the ED on 09/07/2025 with c/o intractable low back pain with radiation down the LLE. 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 Has trialed series of spinal injections and oral corticosteroid courses w/o significant relief. Lumbar spine CT: severe disc space narrowing and partial bony fusion at L2-L3, severe disc space narrowing seen at L1-L2 with endplate sclerosis, moderate to severe disc space narrowing noted at L3-L4, mild central canal stenosis at L2- L3, left posterolateral disc extrusion is suggested at L4-L5 causing significant central canal stenosis, bilateral neural foraminal narrowing at L4-L5. Lumbar spine MRI: multilevel degenerative changes yielding marked spinal canal and foraminal stenoses, facet arthropathy changes and joint effusions with additional likely interspinous bursitis L4-L5. Intractable low back pain Multilevel lumbar spondylosis with radiculopathy s/p surgery Imaging findings as per above. Appreciate ortho spine consult, discussed injections vs surgical intervention >> pt opted for surgical intervention. S/p L4-S1 decompression and fusion performed by Dr. De Dios this morning; surgery was delayed 2/2 renal dysfunction initially. Pt with significant muscle spasms of lower back region postoperatively, initiate as needed Robaxin. Continue as needed analgesia, scheduled Tylenol. Monitor for postoperative acute blood loss anemia and transfuse as needed (EBL = 450cc). Continue to hold ASA and chemical AC DVT prophylaxis for now pending repeat CBC in AM. Appreciate postop PT/OT evals. Pt currently lives with her son >> depending on postop course, may benefit from SNF vs home. HTN urgency Improved s/p IV labetalol in addition to home antiHTN reg. Continue Norvasc with routine BP checks. Losartan has been on hold due to SEBASTIAN >> will continue to hold for now. Incidental imaging findings 1. Significantly asymmetric soft tissue density w/in the right breast as compared to the left (noted on CTAP). -Recommend nonemergent mammography vs breast US on OP basis. -Pt with history of dense breast tissue. No prior abnormal mammograms or breast US findings per pt. 2. 1.9 cm indeterminate and possibly enhancing lesion in the lower pole of the left kidney seen on CTAP. -Noted as possible hemorrhagic cyst on lumbar spine MRI. -Renal neoplasm cannot be excluded per CTAP impression >> urology was consulted for such. 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 -Recommend OP renal US for further evaluation. SEBASTIAN superimposed on CKD stage IV, resolved Baseline creatinine 1.6-2 since September 2021 per chart review. Most recent OP creatinine = 2 as of 08/25/2025. Cr now back to baseline s/p IVF, SEBASTIAN felt 2/2 contrast-induced nephropathy. Continue to monitor renal function and avoid nephrotoxic agents as able. 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 CC diet. Continue to monitor BSG checks ACHS. History of CAD s/p stenting S/p PCI to the LAD in 2007, continue ASA and statin. Had negative nuclear stress testing in April 2018. Updated TTE with EF 65-70%, grade I DD, trace AR, mild [place], mild TR and normal RV systolic pressure. Other chronic medical conditions: Gout - Continue allopurinol. GERD - Continue PPI. HLD - Continue statin as per above. Depression with anxiety - Continue citalopram. DVT Prophylaxis: SCDs/TEDs only for now given postoperative state Code Status: FULL CODE PCP: Taina Queen DO Disposition: Dispo pending postop course >> home vs SNF, pt currently living with her son as per above. Strongly suspect will need rehab. Patient seen in collaboration with Dr. Greene. Please see addendum. I spent a total of 46 minutes coordinating, documenting, and providing care for this patient excluding time spent in the performance of separately billed services or time spent by another provider/QHP. This included personally reviewing all current laboratories and imaging studies, medical reconciliation, outpatient chart review and discussion with specialists. This chart was completed in part utilizing Speech Voice Recognition Software. Grammatical errors, random word insertions, pronoun errors, and incomplete sent ences are an occasional consequence of this system due to software limitations, ambient noise, and hardware issues. Any formal questions or concerns about the content, text, or information contained within the body of this dictation should be directly addressed to the provider for clarification. Admission and Anticipated Discharge Date Admission Date: September 07, 2025 Supervising Physician Co-Signing Physician Notes Pt seen and examined by me, care coordinated w/ BZoe Moreno PA-C, pls refer to her note above for further detail. Pt seen after coming back to floor after her surgery this AM. Pt seen lying in bed, awake, alert, answers appropriately, she is aware of being in the hospital, only mildly drowsy. Denies any fever, chills, chest pain, shortness of breath. Denies abd. pain, n/v. However complains of back muscle spasms - discussed with RN from PACU, does not seem as pt received anything yet after her surgery for her complaints. Lungs CTAB. Abdomen soft, nontender. Pt is able to move extremities. Today Cr down to 1.65.She does have hx of CKD. losartan on hold. cont. to monitor Cr, and BP. Will provide pain meds, muscle relax., cont. to closely monitor. MD Jc Subjective Patient seen and examined postoperatively in room N387-2. C/o significant amount of low back pain and muscle spasms. Denies any chest pain or SOB. Daughters at bedside. Review of Systems Review of Systems: At least ten systems reviewed and negative, except as noted in the subjective section. Physical Exam Physical Exam: General: Elderly F. Lying down in bed, appears quite uncomfortable 2/2 pain. A&Ox3. HEENT: Normocephalic, atraumatic. External ear and nose normal, oropharynx normal. Respiratory: Normal respiratory effort, CTAB, on 2L NC postoperatively. Cardiovascular: RRR, no BLE edema. Abdomen/GI: Active bowel sounds, soft, nondistended, nontender to palpation in all quadrants. Extremities/Musculoskeletal: No cyanosis or clubbing. Surgical site not directly visualized as exam limited 2/2 pain, BRIAN x 1 intact and draining serosanguineous output. Neurologic: No overt focal deficits, CN's II-XI not formally tested but appear grossly intact bilaterally. Results & Data Results & Data Vital Signs (Past 12 Hours) Vital Signs Temp Pulse Resp BP Pulse Ox O2 Del Method 09/12/25 06:48 36.9 C 84 20 178/67 H 95 Room Air 09/12/25 06:23 36.9 C 87 20 162/74 H 94 Room Air 09/12/25 04:19 85 95 Room Air Laboratory Results [facility] 09/12/25 06:34 Sodium 138 Potassium 4.4 Chloride 104 Carbon Dioxide 27 BUN 33 H Creatinine 1.65 H Glucose 112 H Calcium 8.5 L Medications Administered Current Inpatient Medications Acetaminophen (Acetaminophen 325 Mg Tab) 650 mg PO Q4H PRN PRN Reason: Pain 1-3 or Fever Stop: 10/07/25 19:08 Last Admin: 09/11/25 19:46 Dose: 650 mg Acetaminophen (Acetaminophen 500 Mg Tab) 1,000 mg PO Q8H FREDI Stop: 10/12/25 12:59 Al Hydrox/Mg Hydrox/Simethicone (Aluminum/Magnesium Susp 30 Ml Udc) 30 ml PO Q6H PRN PRN Reason: Dyspepsia Stop: 10/12/25 11:37 Allopurinol (Allopurinol 100 Mg Tab) 100 mg PO QAM FREDI Stop: 10/08/25 08:59 Last Admin: 09/12/25 12:20 Dose: 100 mg Amlodipine Besylate (Amlodipine Besylate 5 Mg Tab) 5 mg PO QPM FREDI Stop: 10/07/25 20:59 Last Admin: 09/11/25 20:57 Dose: 5 mg Artificial Tears (Artificial Tears) 1 drops OP BID PRN PRN Reason: Dry Eyes Stop: 10/07/25 19:19 Atropine Sulfate (Atropine Sulfate 0.1 Mg/Ml 10ml Syr) 0.5 mg IV Q1M PRN PRN Reason: PACU Use-HR<40 &/or Bradycardi Stop: 09/12/25 15:20 Bisacodyl (Bisacodyl 10 Mg Supp) 10 mg [place] DAILY PRN PRN Reason: Constipation Stop: 10/12/25 11:37 Citalopram Hydrobromide (Citalopram 20 Mg Tab) 20 mg PO DAILY FREDI Stop: 10/08/25 08:59 Last Admin: 09/12/25 12:20 Dose: 20 mg Cyanocobalamin (Cyanocobalamin (B-12) 500 Mcg Tablet) 1,000 mcg PO DAILY FREDI Stop: 10/08/25 08:59 Last Admin: 09/12/25 12:20 Dose: 1,000 mcg Dextrose (Dextrose 50% 50 Ml Syringe) 25 - 50 ml IV UD PRN; Protocol PRN Reason: Hypoglycemia Protocol Stop: 10/07/25 19:08 Diphenhydramine HCl (Diphenhydramine Capsule 25 Mg Cap) 25 mg PO Q6H PRN PRN Reason: Allergic Rhinitis/Insomnia Stop: 10/12/25 11:37 Ephedrine Sulfate (Ephedrine Sulfate 50 Mg/Ml Amp) 5 mg IV Q5M PRN PRN Reason: PACU Use Only-SBP<90 mmHg Stop: 09/12/25 15:20 Famotidine (Famotidine 20 Mg Tab) 20 mg PO Q12H PRN PRN Reason: Dyspepsia Stop: 10/12/25 11:37 Gabapentin (Gabapentin 400 Mg Cap) 400 mg PO QID FREDI Stop: 10/07/25 19:08 Last Admin: 09/12/25 12:21 Dose: 400 mg Glucagon (Glucagon For Inj 1 Mg Vial) 1 mg SQ UD PRN; Protocol PRN Reason: Hypoglycemia Protocol Stop: 10/07/25 19:08 Glucose (Glucose 40% Gel 15 Gm Tube) 15 - 30 gm PO UD PRN; Protocol PRN Reason: Hypoglycemia Protocol Stop: 10/07/25 19:08 Glucose (Glucose 10 Tab/Tube) 4 - 8 tab PO UD PRN; Protocol PRN Reason: Hypoglycemia Protocol Stop: 10/07/25 19:08 Hydromorphone HCl (Hydromorphone Inj 2 Mg/Ml Syr/Vial) 0.5 mg IV Q5M PRN PRN Reason: PACU Use Only-Pain Stop: 09/12/25 15:21 Hydromorphone HCl (Hydromorphone Inj 0.5 Mg/0.5 Ml Syr) 0.5 mg IV Q3H PRN PRN Reason: MODERATE Pain(4,5,6)/Pre PT Stop: 09/26/25 11:37 Hydromorphone HCl (Hydromorphone Inj 1 Mg/Ml Syringe) 1 mg IV Q3H PRN PRN Reason: SEVERE Pain (7,8,9,10) Stop: 09/26/25 11:37 Hydroxyzine HCl (Hydroxyzine Hcl 25 Mg Tab) 25 mg PO Q8H PRN PRN Reason: Anxiety Stop: 10/12/25 11:37 Promethazine HCl 6.25 mg/ (Sodium Chloride) 50.25 mls @ 204 mls/hr IV ONCE PRN PRN Reason: PACU Use Only-Nausea/Vomiting Stop: 09/12/25 15:21 Sodium Chloride (Nss) 1,000 mls @ 75 mls/hr IV .[id number] [facility] Stop: 09/15/25 11:37 Last Admin: 09/12/25 13:05 Dose: 75 mls/hr Cefazolin Sodium (Ancef 2000mg) 2,000 mg in 15 mls @ 3.75 mls/min IV Q8H FREDI Stop: 09/15/25 08:03 Promethazine HCl (Phenergan) 12.5 mg in 50.5 mls @ 202 mls/hr IV Q6H PRN PRN Reason: Nausea And Vomiting Stop: 10/12/25 11:37 Lorazepam 0.5 mg/ Syringe 0.5 mls @ 2 mls/min IV Q8H PRN PRN Reason: Sedation/Anxiety Stop: 10/12/25 11:37 Influenza Virus Vaccine Quadrival (Do Not Administer Flu Vaccine) 1 each N/A PRN PRN PRN Reason: Notification Stop: 10/12/25 11:37 Insulin Aspart (Insulin Aspart Per Unit Charge) 0 units SC ACHS [facility] Stop: 10/12/25 12:14 Last Admin: 09/12/25 12:24 Dose: Not Given Labetalol HCl (Labetalol Hcl Iv 5 Mg/Ml 20ml) 10 mg IV Q4H PRN PRN Reason: Hypertension Stop: 10/07/25 19:08 Lactic Acid (Ammonium Lactate 12% Lotion 225 Gm Btl) 1 gm EXT DAILY [facility] Stop: 10/08/25 08:59 Last Admin: 09/11/25 08:16 Dose: 1 gm Lorazepam (Lorazepam 0.5 Mg Tab) 0.5 mg PO Q8H PRN PRN Reason: Sedation/Anxiety Stop: 10/12/25 11:37 Magnesium Hydroxide (Magnesium Hydroxide Susp 30 Ml Udc) 30 ml PO Q24H PRN PRN Reason: Constipation Stop: 10/12/25 11:37 Melatonin (Melatonin 3 Mg Tab) 3 mg PO HS FREDI Stop: 10/07/25 20:59 Last Admin: 09/11/25 20:57 Dose: 3 mg Methocarbamol (Methocarbamol 500 Mg Tablet) 500 mg PO TID PRN PRN Reason: Muscle Spasm Stop: 10/12/25 11:38 Metoclopramide HCl (Metoclopramide Hcl Inj 5 Mg/Ml 2 Ml Vial) 10 mg IV Q6H PRN PRN Reason: Nausea &/or Vomiting Stop: 10/12/25 11:37 Miscellaneous (Carbohydrates For Hypoglycemia ) 15 - 30 gm PO UD PRN PRN Reason: Hypoglycemia Protocol Stop: 10/07/25 19:08 Morphine Sulfate (Morphine Sulfate 2 Mg/Ml Carp) 2 mg IV Q4H PRN PRN Reason: Severe Pain (Scale 7, 8, 9,10) Stop: 09/22/25 11:01 Last Admin: 09/12/25 12:16 Dose: 2 mg Naloxone HCl (Naloxone Hcl 0.4 Mg/1 Ml Vial/Carp) 0.1 mg IV Q5M PRN PRN Reason: Oversedation/Resp depression Stop: 10/12/25 11:37 Nitroglycerin (Nitroglycerin Sl 0.4 Mg/Tab Tab) 0.4 mg SL UD PRN PRN Reason: Chest Pain Stop: 10/07/25 19:08 Ondansetron HCl (Ondansetron Inj 2 Mg/Ml 2 Ml Vial) 4 mg IV Q6H PRN PRN Reason: Nausea &/or Vomiting Stop: 10/12/25 11:37 Ondansetron HCl (Ondansetron 4 Mg Od Tab) 4 mg PO Q6H PRN PRN Reason: Nausea Stop: 10/12/25 11:37 Oxycodone HCl (Oxycodone Hcl Ir 5 Mg Tab (Immediate Release)) 5 - 10 mg PO Q4H PRN PRN Reason: Mod-Sev Pain (Scale 4-10) Stop: 09/25/25 08:29 Last Admin: 09/12/25 04:11 Dose: 5 mg Pantoprazole Sodium (Pantoprazole 40 Mg Tab) 40 mg PO QAM FREDI Stop: 10/08/25 08:59 Last Admin: 09/12/25 12:21 Dose: 40 mg Pneumococcal Polyvalent Vaccine (Do Not Administer Pneumococcal Vaccine) 1 each N/A PRN PRN PRN Reason: Notification Stop: 10/12/25 11:37 Polyethylene Glycol (Polyethylene (Miralax) 17 Gm Pack) 17 gm PO DAILY PRN PRN Reason: Constipation Stop: 10/07/25 19:08 Polyethylene Glycol (Polyethylene (Miralax) 17 Gm Pack) 17 gm PO DAILY FREDI Stop: 10/11/25 08:59 Last Admin: 09/12/25 12:24 Dose: Not Given Polyethylene Glycol (Polyethylene (Miralax) 17 Gm Pack) 17 gm PO Q6 FREDI Stop: 10/13/25 05:59 Rosuvastatin Calcium (Rosuvastatin Calcium 5 Mg Tab) 5 mg PO QAM FREDI Stop: 10/08/25 08:59 Last Admin: 09/12/25 12:21 Dose: 5 mg Senna/Docusate Sodium (Docusate Sodium/Senna 50/8.6mg Tab) 1 tab PO BID FREDI Stop: 10/11/25 08:59 Last Admin: 09/12/25 11:59 Dose: Not Given Senna/Docusate Sodium (Docusate Sodium/Senna 50/8.6mg Tab) 2 tab PO HS FREDI Stop: 10/12/25 20:59 Sodium Biphosphate/Sodium Phosphate (Sod Phosphate/Sod Biphosphate Enema 132 Ml Btl) 132 ml [place] ONE PRN PRN Reason: Constipation Stop: 10/12/25 11:37 Tramadol HCl (Tramadol Hcl 50 Mg Tablet) 50 - 100 mg PO Q4H PRN PRN Reason: MOD/SEV Pain & Pre PT Stop: 10/12/25 11:37 Vitamin D (Cholecalciferol 25 Mcg (1000 Units) Tab) 25 mcg PO DAILY FREDI Stop: 10/08/25 08:59 Last Admin: 09/12/25 12:20 Dose: 25 mcg
[2025-09-12] MEDS ORDERED: diphenhydrAMINE Capsule 25 MG CAP PO PRN (11:38)
[2025-09-12] MEDS ORDERED: PROMETHAZINE 12.5 MG/50.5 ML BAG IV PRN (11:38)
[2025-09-12] MEDS ORDERED: SOD PHOSPHATE/SOD BIPHOSPHATE ENEMA 132 ML BTL PR PRN (11:38)
[2025-09-12] MEDS ORDERED: LORazepam Inj 0.5 MG in SYRINGE 0.25 ML IV PRN (11:38)
[2025-09-12] MEDS ORDERED: DO NOT ADMINISTER FLU VACCINE PRN (11:38)
[2025-09-12] MEDS ORDERED: HYDROmorphone INJ 0.5 MG/0.5 ML SYR IV PRN (11:38)
[2025-09-12] MEDS ORDERED: METOCLOPRAMIDE HCL INJ 5 MG/ML 2 ML VIAL IV PRN (11:38)
[2025-09-12] MEDS ORDERED: HYDROmorphone INJ 1 MG/ML SYRINGE IV PRN (11:38)
[2025-09-12] MEDS ORDERED: ACETAMINOPHEN 500 MG TAB PO PRN (11:38)
[2025-09-12] MEDS ORDERED: ALUMINUM/MAGNESIUM SUSP 30 ML UDC PO PRN (11:38)
[2025-09-12] MEDS ORDERED: ONDANSETRON INJ 2 MG/ML 2 ML VIAL IV PRN (11:38)
[2025-09-12] MEDS ORDERED: ACETAMINOPHEN 1,000 MG/100 ML VIAL IV PRN (11:38)
[2025-09-12] MEDS ORDERED: ONDANSETRON 4 MG OD TAB PO PRN (11:38)
[2025-09-12] MEDS ORDERED: DO NOT ADMINISTER PNEUMOCOCCAL VACCINE PRN (11:38)
[2025-09-12] MEDS ORDERED: FAMOTIDINE 20 MG TAB PO PRN (11:38)
[2025-09-12] MEDS ORDERED: NALOXONE HCL 0.4 MG/1 ML VIAL/CARP IV PRN (11:38)
[2025-09-12] MEDS ORDERED: LORazepam 0.5 MG TAB PO PRN (11:38)
[2025-09-12] MEDS ORDERED: MAGNESIUM HYDROXIDE SUSP 30 ML UDC PO PRN (11:38)
[2025-09-12] MEDS: SODIUM CHLORIDE 0.9% 1,000 ML IV SCH (13:05)
[2025-09-12] MEDS: METHOCARBAMOL 500 MG TABLET PO PRN (13:47)
[2025-09-12] MEDS: ACETAMINOPHEN 500 MG TAB PO SCH (13:48)
--- NOTE | 2025-09-12 15:05 | Anesthesiology Progress Note ---
Date of Service September 12, 2025 Anesthesia Post Procedure Vital Signs Vital Signs: Temp Pulse Pulse Resp BP BP Pulse Ox 09/12/25 13:36 36.6 C 91 H 16 119/79 99 09/12/25 12:38 36.6 C 98 H 16 120/60 90 09/12/25 12:08 36.4 C L 87 16 125/70 96 09/12/25 11:38 36.8 C 95 H 18 146/71 H 99 09/12/25 11:10 102 H 12 159/64 H 97 09/12/25 11:00 36.2 C L 104 H 14 158/68 H 97 09/12/25 10:50 109 H 15 152/57 H 99 09/12/25 10:40 110 H 12 148/53 H 100 09/12/25 10:30 36.9 C 108 H 14 157/79 H 100 09/12/25 06:48 36.9 C 84 20 178/67 H 95 09/12/25 06:23 36.9 C 87 20 162/74 H 94 09/12/25 04:19 85 95 09/11/25 22:00 36.7 C 85 20 127/67 94 09/11/25 20:55 09/11/25 20:53 36.8 C 94 H 18 165/69 H 94 09/11/25 18:05 36.7 C 93 H 18 154/63 H 92 O2 Del Method O2 Flow Rate 09/12/25 13:36 Room Air 09/12/25 12:38 Nasal Cannula 09/12/25 12:08 Nasal Cannula 09/12/25 11:38 Nasal Cannula 09/12/25 11:10 Nasal Cannula 2 09/12/25 11:00 Nasal Cannula 2 09/12/25 10:50 Oxymask 9 09/12/25 10:40 Oxymask 15 09/12/25 10:30 Oxymask 15 09/12/25 06:48 Room Air 09/12/25 06:23 Room Air 09/12/25 04:19 Room Air 09/11/25 22:00 Nasal Cannula 2 09/11/25 20:55 Room Air 09/11/25 20:53 Room Air 09/11/25 18:05 Room Air Pain Intensity Back: Pain Intensity: 4 Transfer of Care Handoff Completed per policy Notes Mental Status: alert / awake / arousable and participated in evaluation Nausea / Vomiting: adequately controlled Pain: adequately controlled Airway Patency, RR, SpO2: stable & adequate BP & HR: stable & adequate Hydration State: stable & adequate Anesthetic Complications: no major complications apparent and Pt Satisfied with anesthetic care
[2025-09-12 20:34] LABS: Hematocrit (blood only) 24.7 % (37.0-47.0); Hemoglobin 7.9 g/dL (12.0-16.0)
[2025-09-12] MEDS ORDERED: DOCUSATE SODIUM/SENNA 50/8.6MG TAB PO SCH (21:00)
[2025-09-13] MEDS: POLYETHYLENE (MIRALAX) 17 GM PACK PO SCH (05:20)
[2025-09-13 06:56] LABS: Hematocrit (blood only) 23.6 % (37.0-47.0); Hemoglobin 7.6 g/dL (12.0-16.0); Immature Granulocytes # (auto) 0.03 K/uL (0.01-0.20); Immature Granulocytes % (auto) 0.4 %; Mean Corpuscular Hemoglobin 32.2 pg (25.0-34.0); Mean Corpuscular Volume 100.0 fL (80.0-100.0); Platelet Count 147 K/uL (130-400); RDW Standard Deviation 49.7 fL (36.4-46.3); Red Blood Count 2.36 M/uL (4.20-5.40); White Blood Count 7.85 K/ul (4.8-10.8)
[2025-09-13 07:37] LABS: Polychromasia 2+
[2025-09-13 07:40] LABS: Anion Gap 4.0 (3-11); Blood Urea Nitrogen 30.0 mg/dl (6-23); Calcium 8.3 mg/dl (8.6-10.3); Carbon Dioxide 30.0 mmol/L (21-32); Chloride 102.0 mmol/L (98-107); Creatinine Clr Calc Pharmacy 23.1 ml/min; Glucose 142.0 mg/dl (70-99(Fasting)); Magnesium 1.9 mg/dl (1.7-2.4); Potassium 4.7 mmol/L (3.5-5.1); Sodium 136.0 mmol/L (136-145)
[2025-09-13] MEDS ORDERED: SODIUM CHLORIDE 0.9% 100 ML IV PRN (07:59)
--- NOTE | 2025-09-13 09:12 | Orthopedic Progress Note ---
Date of Service September 13, 2025 Assessment & Plan (1) Two-level lumbosacral spondylosis with radiculopathy: Plan: Today we will initiate physical therapy monitor her progress throughout the weekend and consider rehab early next week. Admission and Anticipated Discharge Date Admission Date: September 07, 2025 Subjective Patient's back pain is controlled left leg symptoms improved Physical Exam Physical Exam: Patient is alert and oriented this morning. She is comfortable. Distracted testing. Results & Data Vital Signs (Past 12 Hours) Vital Signs Temp Pulse Resp BP BP Pulse Ox O2 Del Method 09/13/25 07:49 36.8 C 76 16 129/69 99 Nasal Cannula 09/13/25 04:34 36.4 C L 80 20 113/66 99 Nasal Cannula 09/13/25 00:40 36.6 C 80 16 128/60 100 Nasal Cannula O2 Flow Rate 09/13/25 07:49 09/13/25 04:34 2 09/13/25 00:40 2
--- NOTE | 2025-09-13 09:16 | Hospitalist Progress Note ---
Date of Service September 13, 2025 Assessment & Plan (1) Intractable low back pain: (2) Multilevel lumbosacral spondylosis with radiculopathy: (3) Acute blood loss anemia: (4) Hypertensive urgency: (5) Acute kidney injury superimposed on CKD: Plan Patient is an 89-year-old female with past medical history significant for type 2 diabetes, dyslipidemia, gout, hypercholesterolemia, uncomplicated asthma, hypertension, CAD s/p stenting, GERD, CKD stage IV, degenerative disc disease, anemia of chronic renal failure, history of squamous cell carcinoma and depression with anxiety who presented to the ED on 09/07/2025 with c/o intractable low back pain with radiation down the LLE. Ongoing for several months with acute worsening x 3-4 days SHAGGER. Has trialed series of spinal injections and oral corticosteroid courses w/o significant relief. Lumbar spine CT: severe disc space narrowing and partial bony fusion at L2-L3, severe disc space narrowing seen at L1-L2 with endplate sclerosis, moderate to severe disc space narrowing noted at L3-L4, mild central canal stenosis at L2- L3, left posterolateral disc extrusion is suggested at L4-L5 causing significant central canal stenosis, bilateral neural foraminal narrowing at L4-L5. Lumbar spine MRI: multilevel degenerative changes yielding marked spinal canal and foraminal stenoses, facet arthropathy changes and joint effusions with additional likely interspinous bursitis L4-L5. Intractable low back pain Multilevel lumbar spondylosis with radiculopathy s/p surgery Imaging findings as per above. Appreciate ortho spine consult, discussed injections vs surgical intervention >> pt opted for surgical intervention. S/p L4-S1 decompression and fusion performed by Dr. De Dios on 09/12; surgery was delayed 2/2 renal dysfunction initially. Had significant muscles spasms yesterday >> improved with PRN Robaxin. Continue PRN analgesia, scheduled Tylenol. Continue to hold ASA and chemical DVT prophylaxis given ABLA, as per below. Appreciate postop PT/OT evals. Pt currently lives with her son >> suspect pt will need SNF placement. Acute blood loss anemia Had significant amount of BRIAN drain output postop yesterday (>300cc within 6hr time frame s/p surgery per d/w RN). BRIAN drain output has lessened overnight however Hgb dropped to 7.6 this morning. Not entirely unexpected in light of additional intraop losses (EBL: 450cc), plus likely dilutional component contributing as well. Will transfuse 1U PRBCs now and recheck H/H this afternoon >> may need an additional unit which has been proactively ordered. Goal Hgb>8 given history of cardiac stenting. HTN urgency Improved s/p IV labetalol in addition to home antiHTN reg. Continue Norvasc with routine BP checks. Losartan has been on hold due to SEBASTIAN >> will continue to hold for now as BP slightly soft postoperatively. Incidental imaging findings 1. Significantly asymmetric soft tissue density w/in the right breast as compared to the left (noted on CTAP). -Recommend nonemergent mammography vs breast US on OP basis. -Pt with history of dense breast tissue. No prior abnormal mammograms or breast US findings per pt. 2. 1.9 cm indeterminate and possibly enhancing lesion in the lower pole of the left kidney seen on CTAP. -Noted as possible hemorrhagic cyst on lumbar spine MRI. -Renal neoplasm cannot be excluded per CTAP impression >> urology was consulted for such. 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 -Recommend OP renal US for further evaluation. SEBASTIAN superimposed on CKD stage IV, resolved Baseline creatinine 1.6-2 since September 2021 per chart review. Most recent OP creatinine = 2 as of 08/25/2025. Cr now back to baseline s/p IVF, SEBASTIAN felt 2/2 contrast-induced nephropathy. Continue to monitor renal function and avoid nephrotoxic agents as able. DM type II SSI protocol while IP, on Ozempic SHAGGER. CC diet. Continue to monitor BSG checks ACHS. History of CAD s/p stenting S/p PCI to the LAD in 2007, continue statin. ASA on hold as per above. Had negative nuclear stress testing in April 2018. Updated TTE with EF 65-70%, grade I DD, trace AR, mild DC, mild TR and normal RV systolic pressure. Other chronic medical conditions: Gout - Continue allopurinol. GERD - Continue PPI. HLD - Continue statin as per above. Depression with anxiety - Continue citalopram. DVT Prophylaxis: SCDs/TEDs only for now given ABLA Code Status: FULL CODE PCP: Taina Queen, DO Disposition: Appreciate postop PT/OT evals, suspect pt will require rehab placement. Pt currently living with her son as per above. Pt's daughter, Lisy, updated on the above plans of care this morning @ [phone]. Patient seen in collaboration with Dr. Greene. Please see addendum. I spent a total of 55 minutes coordinating, documenting, and providing care for this patient excluding time spent in the performance of separately billed services or time spent by another provider/QHP. This included personally reviewing all current laboratories and imaging studies, medical reconciliation, outpatient chart review and discussion with specialists. This chart was completed in part utilizing Speech Voice Recognition Software. Grammatical errors, random word insertions, pronoun errors, and incomplete sentences are an occasional consequence of this system due to software limitations, ambient noise, and hardware issues. Any formal questions or concerns about the content, text, or information contained within the body of this dictation should be directly addressed to the provider for clarification. Admission and Anticipated Discharge Date Admission Date: September 07, 2025 Supervising Physician Co-Signing Physician Notes Pt seen and examined by me, care coordinated w/ Alise Moreno PA-C, pls refer to her note above for further detail. Pt seen sitting up in bed in NAD, awake, alert, answers appropriately, feeling well this AM, only reports some soreness at the surgical site. Denies any fever, chills, chest pain, shortness of breath. Denies abd. pain, n/v. Lungs CTAB. Abdomen soft, nontender. Pt is able to move extremities. Today Cr is 1.7, and She does have hx of CKD. losartan on hold. cont. to monitor Cr, and BP. Hgb down to 7.6, will transfuse 1 unit of pRBC. cont. to closely monitor. MD Jc Subjective Patient seen and examined postoperatively in room N387-2. Pain much improved. Sitting up in bed and eating breakfast. Witnessed coughing fit while eating wheat toast, was fortunately able to clear the food bolus. Tolerated sips of water and coffee following this. Denies any chest pain or SOB. BRIAN drain output slowing, 20cc drained by RN while I was at bedside. Review of Systems Review of Systems: At least ten systems reviewed and negative, except as noted in the subjective section. Physical Exam Physical Exam: General: Elderly F. Sitting up in bed, A&Ox3. NAD. HEENT: Normocephalic, atraumatic. External ear and nose normal, oropharynx slightly dry. Respiratory: Normal respiratory effort, CTAB, remains on 2L NC postoperatively. Cardiovascular: RRR, no BLE edema. Abdomen/GI: Active bowel sounds, soft, nondistended, nontender to palpation in all quadrants. Extremities/Musculoskeletal: No cyanosis or clubbing. Surgical dressing with some bloody saturation, BRIAN x 1 intact and draining serosanguineous output (lessened). Neurologic: No overt focal deficits, CN's II-XI not formally tested but appear grossly intact bilaterally. Results & Data Results & Data Vital Signs (Past 12 Hours) Vital Signs Temp Pulse Resp BP BP Pulse Ox O2 Del Method 09/13/25 07:49 36.8 C 76 16 129/69 99 Nasal Cannula 09/13/25 04:34 36.4 C L 80 20 113/66 99 Nasal Cannula 09/13/25 00:40 36.6 C 80 16 128/60 100 Nasal Cannula O2 Flow Rate 09/13/25 07:49 09/13/25 04:34 2 09/13/25 00:40 2 Laboratory Results Short CBC 09/12/25 09/13/25 Range/Units 20:07 05:56 WBC 7.85 (4.8-10.8) K/ul Hgb 7.9 L 7.6 L (12.0-16.0) g/dL Hct 24.7 L 23.6 L (37.0-47.0) % Plt Count 147 (130-400) K/uL BMP 09/13/25 05:56 Sodium 136 Potassium 4.7 Chloride 102 Carbon Dioxide 30 BUN 30 H Creatinine 1.71 H Glucose 142 H Calcium 8.3 L Medications Administered Current Inpatient Medications Acetaminophen (Acetaminophen 325 Mg Tab) 650 mg PO Q4H PRN PRN Reason: Pain 1-3 or Fever Stop: 10/07/25 19:08 Last Admin: 09/11/25 19:46 Dose: 650 mg Acetaminophen (Acetaminophen 500 Mg Tab) 1,000 mg PO Q8H FREDI Stop: 10/12/25 12:59 Last Admin: 09/13/25 05:20 Dose: 1,000 mg Al Hydrox/Mg Hydrox/Simethicone (Aluminum/Magnesium Susp 30 Ml Udc) 30 ml PO Q6H PRN PRN Reason: Dyspepsia Stop: 10/12/25 11:37 Allopurinol (Allopurinol 100 Mg Tab) 100 mg PO QAM FREDI Stop: 10/08/25 08:59 Last Admin: 09/13/25 09:51 Dose: 100 mg Amlodipine Besylate (Amlodipine Besylate 5 Mg Tab) 5 mg PO QPM FREDI Stop: 10/07/25 20:59 Last Admin: 09/12/25 21:00 Dose: 5 mg Artificial Tears (Artificial Tears) 1 drops OP BID PRN PRN Reason: Dry Eyes Stop: 10/07/25 19:19 Bisacodyl (Bisacodyl 10 Mg Supp) 10 mg DC DAILY PRN PRN Reason: Constipation Stop: 10/12/25 11:37 Citalopram Hydrobromide (Citalopram 20 Mg Tab) 20 mg PO DAILY FREDI Stop: 10/08/25 08:59 Last Admin: 09/13/25 09:51 Dose: 20 mg Cyanocobalamin (Cyanocobalamin (B-12) 500 Mcg Tablet) 1,000 mcg PO DAILY FREDI Stop: 10/08/25 08:59 Last Admin: 09/13/25 09:51 Dose: 1,000 mcg Dextrose (Dextrose 50% 50 Ml Syringe) 25 - 50 ml IV UD PRN; Protocol PRN Reason: Hypoglycemia Protocol Stop: 10/07/25 19:08 Diphenhydramine HCl (Diphenhydramine Capsule 25 Mg Cap) 25 mg PO Q6H PRN PRN Reason: Allergic Rhinitis/Insomnia Stop: 10/12/25 11:37 Famotidine (Famotidine 20 Mg Tab) 20 mg PO Q12H PRN PRN Reason: Dyspepsia Stop: 10/12/25 11:37 Gabapentin (Gabapentin 400 Mg Cap) 400 mg PO QID RFEDI Stop: 10/07/25 19:08 Last Admin: 09/13/25 09:51 Dose: 400 mg Glucagon (Glucagon For Inj 1 Mg Vial) 1 mg SQ UD PRN; Protocol PRN Reason: Hypoglycemia Protocol Stop: 10/07/25 19:08 Glucose (Glucose 40% Gel 15 Gm Tube) 15 - 30 gm PO UD PRN; Protocol PRN Reason: Hypoglycemia Protocol Stop: 10/07/25 19:08 Glucose (Glucose 10 Tab/Tube) 4 - 8 tab PO UD PRN; Protocol PRN Reason: Hypoglycemia Protocol Stop: 10/07/25 19:08 Hydromorphone HCl (Hydromorphone Inj 1 Mg/Ml Syringe) 1 mg IV Q3H PRN PRN Reason: SEVERE Pain (7,8,9,10) Stop: 09/26/25 11:37 Cefazolin Sodium (Ancef 2000mg) 2,000 mg in 15 mls @ 3.75 mls/min IV Q8H FREDI Stop: 09/15/25 08:03 Last Admin: 09/13/25 10:05 Dose: 3.75 mls/min Promethazine HCl (Phenergan) 12.5 mg in 50.5 mls @ 202 mls/hr IV Q6H PRN PRN Reason: Nausea And Vomiting Stop: 10/12/25 11:37 Sodium Chloride (Nss) 100 mls @ 15 mls/hr IV .Q6H40M PRN PRN Reason: For Transfusion Duration Stop: 09/13/25 15:59 Influenza Virus Vaccine Quadrival (Do Not Administer Flu Vaccine) 1 each N/A PRN PRN PRN Reason: Notification Stop: 10/12/25 11:37 Insulin Aspart (Insulin Aspart Per Unit Charge) 0 units SC ACHS FREDI Stop: 10/12/25 12:14 Last Admin: 09/13/25 10:05 Dose: Not Given Labetalol HCl (Labetalol Hcl Iv 5 Mg/Ml 20ml) 10 mg IV Q4H PRN PRN Reason: Hypertension Stop: 10/07/25 19:08 Lactic Acid (Ammonium Lactate 12% Lotion 225 Gm Btl) 1 gm EXT DAILY FREDI Stop: 10/08/25 08:59 Last Admin: 09/13/25 10:05 Dose: 1 gm Lorazepam (Lorazepam 0.5 Mg Tab) 0.5 mg PO Q8H PRN PRN Reason: Sedation/Anxiety Stop: 10/12/25 11:37 Magnesium Hydroxide (Magnesium Hydroxide Susp 30 Ml Udc) 30 ml PO Q24H PRN PRN Reason: Constipation Stop: 10/12/25 11:37 Melatonin (Melatonin 3 Mg Tab) 3 mg PO HS FREDI Stop: 10/07/25 20:59 Last Admin: 09/12/25 20:59 Dose: 3 mg Methocarbamol (Methocarbamol 500 Mg Tablet) 500 mg PO TID PRN PRN Reason: Muscle Spasm Stop: 10/12/25 11:38 Last Admin: 09/12/25 13:47 Dose: 500 mg Miscellaneous (Carbohydrates For Hypoglycemia ) 15 - 30 gm PO UD PRN PRN Reason: Hypoglycemia Protocol Stop: 10/07/25 19:08 Morphine Sulfate (Morphine Sulfate 2 Mg/Ml Carp) 2 mg IV Q4H PRN PRN Reason: Severe Pain (Scale 7, 8, 9,10) Stop: 09/22/25 11:01 Last Admin: 09/12/25 16:19 Dose: 2 mg Naloxone HCl (Naloxone Hcl 0.4 Mg/1 Ml Vial/Carp) 0.1 mg IV Q5M PRN PRN Reason: Oversedation/Resp depression Stop: 10/12/25 11:37 Nitroglycerin (Nitroglycerin Sl 0.4 Mg/Tab Tab) 0.4 mg SL UD PRN PRN Reason: Chest Pain Stop: 10/07/25 19:08 Ondansetron HCl (Ondansetron Inj 2 Mg/Ml 2 Ml Vial) 4 mg IV Q6H PRN PRN Reason: Nausea &/or Vomiting Stop: 10/12/25 11:37 Ondansetron HCl (Ondansetron 4 Mg Od Tab) 4 mg PO Q6H PRN PRN Reason: Nausea Stop: 10/12/25 11:37 Oxycodone HCl (Oxycodone Hcl Ir 5 Mg Tab (Immediate Release)) 5 - 10 mg PO Q4H PRN PRN Reason: Mod-Sev Pain (Scale 4-10) Stop: 09/25/25 08:29 Last Admin: 09/13/25 03:49 Dose: 5 mg Pantoprazole Sodium (Pantoprazole 40 Mg Tab) 40 mg PO QAM FREDI Stop: 10/08/25 08:59 Last Admin: 09/13/25 09:52 Dose: 40 mg Pneumococcal Polyvalent Vaccine (Do Not Administer Pneumococcal Vaccine) 1 each N/A PRN PRN PRN Reason: Notification Stop: 10/12/25 11:37 Polyethylene Glycol (Polyethylene (Miralax) 17 Gm Pack) 17 gm PO DAILY FREDI Stop: 10/11/25 08:59 Last Admin: 09/13/25 10:04 Dose: Not Given Polyethylene Glycol (Polyethylene (Miralax) 17 Gm Pack) 17 gm PO Q6 FREDI Stop: 10/13/25 05:59 Last Admin: 09/13/25 05:20 Dose: 17 gm Rosuvastatin Calcium (Rosuvastatin Calcium 5 Mg Tab) 5 mg PO QAM FREDI Stop: 10/08/25 08:59 Last Admin: 09/13/25 09:51 Dose: 5 mg Senna/Docusate Sodium (Docusate Sodium/Senna 50/8.6mg Tab) 1 tab PO BID FREDI Stop: 10/11/25 08:59 Last Admin: 09/13/25 10:03 Dose: 1 tab Sodium Biphosphate/Sodium Phosphate (Sod Phosphate/Sod Biphosphate Enema 132 Ml Btl) 132 ml DC ONE PRN PRN Reason: Constipation Stop: 10/12/25 11:37 Tramadol HCl (Tramadol Hcl 50 Mg Tablet) 50 - 100 mg PO Q4H PRN PRN Reason: MOD/SEV Pain & Pre PT Stop: 10/12/25 11:37 Vitamin D (Cholecalciferol 25 Mcg (1000 Units) Tab) 25 mcg PO DAILY [facility] Stop: 10/08/25 08:59 Last Admin: 09/13/25 09:51 Dose: 25 mcg
[2025-09-13 15:57] LABS: Hematocrit (blood only) 29.1 % (37.0-47.0); Hemoglobin 9.7 g/dL (12.0-16.0)
[2025-09-14 07:29] LABS: Hematocrit (blood only) 27.6 % (37.0-47.0); Hemoglobin 9.1 g/dL (12.0-16.0); Mean Corpuscular Hemoglobin 31.9 pg (25.0-34.0); Mean Corpuscular Volume 96.8 fL (80.0-100.0); Platelet Count 134 K/uL (130-400); RDW Standard Deviation 55.6 fL (36.4-46.3); Red Blood Count 2.85 M/uL (4.20-5.40); White Blood Count 8.12 K/ul (4.8-10.8)
[2025-09-14 07:49] LABS: Anion Gap 5.0 (3-11); Blood Urea Nitrogen 27.0 mg/dl (6-23); Calcium 8.4 mg/dl (8.6-10.3); Carbon Dioxide 32.0 mmol/L (21-32); Chloride 101.0 mmol/L (98-107); Creatinine Clr Calc Pharmacy 23.8 ml/min; Glucose 114.0 mg/dl (70-99(Fasting)); Magnesium 2.0 mg/dl (1.7-2.4); Potassium 4.6 mmol/L (3.5-5.1); Sodium 138.0 mmol/L (136-145)
--- NOTE | 2025-09-14 08:18 | Orthopedic Progress Note ---
Date of Service September 14, 2025 Assessment & Plan (1) Two-level lumbosacral spondylosis with radiculopathy: Plan: Mireya is postoperative day 2 status post L4-S1 decompression and fusion. Will start physical therapy today. DVT prophylaxis is in the form of teds and SCDs. Work on pain control. Continue with aggressive bowel regimen. Maintain BRIAN drain. Should be ready for discharge to rehab within the next day or 2 from an orthopedic standpoint Admission and Anticipated Discharge Date Admission Date: September 07, 2025 Subjective Mireya is postoperative day 2 status post L4-S1 decompression and fusion. She is up and eating breakfast this morning. No issues. She did a little bit of walking around the room yesterday but did not have formal physical therapy due to her receiving blood. H&H this morning are 9.1 and 27.6 respectively. BRIAN drain output last shift was 10 cc. Review of Systems Review of Systems: All systems reviewed & are unremarkable except as noted in HPI & below Physical Exam Physical Exam: Alert and oriented x 3 sitting in a chair eating breakfast in no acute distress Strength intact bilateral lower extremities Dressing is clean dry and intact with functioning BRIAN drain Results & Data Vital Signs (Past 12 Hours) Vital Signs Temp Pulse Resp BP BP Pulse Ox O2 Del Method 09/14/25 08:06 36.8 C 73 16 126/66 98 Room Air 09/13/25 20:50 Nasal Cannula 09/13/25 20:34 36.7 C 78 20 144/77 H 99 Nasal Cannula O2 Flow Rate 09/14/25 08:06 09/13/25 20:50 1 09/13/25 20:34 2
--- NOTE | 2025-09-14 09:34 | Hospitalist Progress Note ---
Date of Service September 14, 2025 Assessment & Plan (1) Intractable low back pain: (2) Multilevel lumbosacral spondylosis with radiculopathy: (3) Acute blood loss anemia: (4) Hypertensive urgency: (5) Acute kidney injury superimposed on CKD: Plan Patient is an 89-year-old female with past medical history significant for type 2 diabetes, dyslipidemia, gout, hypercholesterolemia, uncomplicated asthma, hypertension, CAD s/p stenting, GERD, CKD stage IV, degenerative disc disease, anemia of chronic renal failure, history of squamous cell carcinoma and depression with anxiety who presented to the ED on 09/07/25 with c/o intractable low back pain with radiation down the LLE. Ongoing for several months with acute worsening x 3-4 days [employer]. Has trialed series of spinal injections and oral corticosteroid courses w/o significant relief. Lumbar spine CT: severe disc space narrowing and partial bony fusion at L2-L3, severe disc space narrowing seen at L1-L2 with endplate sclerosis, moderate to severe disc space narrowing noted at L3-L4, mild central canal stenosis at L2- L3, left posterolateral disc extrusion is suggested at L4-L5 causing significant central canal stenosis, bilateral neural foraminal narrowing at L4-L5. Lumbar spine MRI: multilevel degenerative changes yielding marked spinal canal and foraminal stenoses, facet arthropathy changes and joint effusions with additional likely interspinous bursitis L4-L5. Intractable low back pain Multilevel lumbar spondylosis with radiculopathy s/p surgery Imaging findings as per above. Appreciate ortho spine consult, discussed injections vs surgical intervention >> pt opted for surgical intervention. S/p L4-S1 decompression and fusion performed by Dr. De Dios on 09/12; surgery was delayed 2/2 renal dysfunction initially. Had significant muscles spasms on 09/12 >> improved with PRN Robaxin. Continue PRN analgesia, scheduled Tylenol. PT/OT recommending rehab >> appreciate CM assistance with arranging this, pt interested in [facility]. Acute blood loss anemia Had significant amount of BRIAN drain output postop on 09/12 (>300cc within 6hr time frame s/p surgery per d/w RN). BRIAN drain output has significantly lessened however she did have a Hgb drop to 7.6 yesterday. S/p 1U PRBCs on 09/13 with improvement of Hgb to 9.1 this AM (goal Hgb>8 given history of cardiac stenting). No need for any additional transfusions at this time, will continue to monitor. HTN urgency Improved s/p IV labetalol in addition to home antiHTN reg. Continue Norvasc with routine BP checks. Will continue to hold losartan for now as BP still slightly soft (was initially placed on hold 2/2 SEBASTIAN). Incidental imaging findings 1. Significantly asymmetric soft tissue density w/in the right breast as compar ed to the left (noted on CTAP). -Recommend nonemergent mammography vs breast US on OP basis. -Pt with history of dense breast tissue. No prior abnormal mammograms or breast US findings per pt. 2. 1.9 cm indeterminate and possibly enhancing lesion in the lower pole of the left kidney seen on CTAP. -Noted as possible hemorrhagic cyst on lumbar spine MRI. -Renal neoplasm cannot be excluded per CTAP impression >> urology was consulted for such. 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 -Recommend OP renal US for further evaluation. SEBASTIAN superimposed on CKD stage IV, resolved Baseline creatinine 1.6-2 since September 2021 per chart review. Most recent OP creatinine = 2 as of 08/25/25. Cr now back to baseline s/p IVF, SEBASTIAN felt 2/2 contrast-induced nephropathy. Continue to monitor renal function and avoid nephrotoxic agents as able. DM type II SSI protocol while IP, on Ozempic [employer] MECH[employer]IC. CC diet. Continue to monitor BSG checks ACHS. History of CAD s/p stenting S/p PCI to the LAD in 2007, continue statin. ASA on hold as per above. Had negative nuclear stress testing in April 2018. Updated TTE with EF 65-70%, grade I DD, trace AR, mild NJ, mild TR and normal RV systolic pressure. H/H stable so will resume ASA tomorrow. Other chronic medical conditions: Gout - Continue allopurinol. GERD - Continue PPI. HLD - Continue statin as per above. Depression with anxiety - Continue citalopram. DVT Prophylaxis: SCDs/TEDs only for now given ABLA Code Status: FULL CODE PCP: Taina Queen, Disposition: PT/OT recommending rehab as per above. Again, appreciate CM assistance with arranging this. Likely DC in 1-2 days if H/H stable and once placement has been arranged. Patient seen in collaboration with Dr. Greene. Please see addendum. I spent a total of 40 minutes coordinating, documenting, and providing care for this patient excluding time spent in the performance of separately billed services or time spent by another provider/QHP. This included personally reviewing all current laboratories and imaging studies, medical reconciliation, outpatient chart review and discussion with specialists. Admission and Anticipated Discharge Date Admission Date: September 07, 2025 Supervising Physician Co-Signing Physician Notes Pt seen and examined by me, care coordinated w/ B. UZIEL Moreno, pls refer to her note above for further detail. Pt seen sitting up in bed in NAD, awake, alert, answers appropriately, feeling well this AM. Denies any fever, chills, chest pain, shortness of breath. Denies abd. pain, n/v. Lungs CTAB. Abdomen soft, nontender. Pt is able to move extremities. Today Cr is 1.7, and She does have hx of CKD. losartan on hold. cont. to monitor Cr, and BP. Hgb now 9.1, transfused 1 unit of pRBC yesterday. cont. to closely monitor. Plan to DC to rehab tmrw. MD Jc Subjective Patient seen and examined in room N387-2. Feeling well this morning, tolerating diet without issue. Pain well-controlled. Denies any chest pain, SOB or N/V. Eager to work with therapy. Review of Systems Review of Systems: At least ten systems reviewed and negative, except as noted in the subjective section. Physical Exam Physical Exam: General: Elderly F. Sitting up in bedside chair, A&Ox3. NAD. HEENT: Normocephalic, atraumatic. External ear and nose normal, oropharynx moist. Respiratory: Normal respiratory effort, CTAB, saturating well on RA. Cardiovascular: RRR, no BLE edema. Abdomen/GI: Active bowel sounds, soft, nondistended, nontender to palpation in all quadrants. Extremities/Musculoskeletal: No cyanosis or clubbing. Surgical dressing C/D/I, BRIAN x 1 intact with scant serosanguineous output. Neurologic: No overt focal deficits, CN's II-XI not formally tested but appear grossly intact bilaterally. Results & Data Results & Data Vital Signs (Past 12 Hours) Vital Signs Temp Pulse Resp BP Pulse Ox O2 Del Method 09/14/25 08:06 36.8 C 73 16 126/66 98 Room Air 09/14/25 08:00 Room Air Laboratory Results Short CBC 09/13/25 09/14/25 Range/Units 15:38 06:25 WBC 8.12 (4.8-10.8) K/ul Hgb 9.7 L 9.1 L (12.0-16.0) g/dL Hct 29.1 L 27.6 L (37.0-47.0) % Plt Count 134 (130-400) K/uL BMP 09/14/25 06:25 Sodium 138 Potassium 4.6 Chloride 101 Carbon Dioxide 32 BUN 27 H Creatinine 1.66 H Glucose 114 H Calcium 8.4 L Medications Administered Current Inpatient Medications Acetaminophen (Acetaminophen 325 Mg Tab) 650 mg PO Q4H PRN PRN Reason: Pain 1-3 or Fever Stop: 10/07/25 19:08 Last Admin: 09/14/25 04:50 Dose: 650 mg Acetaminophen (Acetaminophen 500 Mg Tab) 1,000 mg PO Q8H RFEDI Stop: 10/12/25 12:59 Last Admin: 09/14/25 20:49 Dose: 1,000 mg Al Hydrox/Mg Hydrox/Simethicone (Aluminum/Magnesium Susp 30 Ml Udc) 30 ml PO Q6H PRN PRN Reason: Dyspepsia Stop: 10/12/25 11:37 Allopurinol (Allopurinol 100 Mg Tab) 100 mg PO QAM [facility] Stop: 10/08/25 08:59 Last Admin: 09/14/25 08:23 Dose: 100 mg Amlodipine Besylate (Amlodipine Besylate 5 Mg Tab) 5 mg PO QPM [facility] Stop: 10/07/25 20:59 Last Admin: 09/14/25 20:48 Dose: 5 mg Artificial Tears (Artificial Tears) 1 drops OP BID PRN PRN Reason: Dry Eyes Stop: 10/07/25 19:19 Aspirin (Aspirin 81 Mg Ectab) 81 mg PO QAM [facility] Stop: 10/15/25 08:59 Bisacodyl (Bisacodyl 10 Mg Supp) 10 mg NJ DAILY PRN PRN Reason: Constipation Stop: 10/12/25 11:37 Citalopram Hydrobromide (Citalopram 20 Mg Tab) 20 mg PO DAILY [facility] Stop: 10/08/25 08:59 Last Admin: 09/14/25 08:24 Dose: 20 mg Cyanocobalamin (Cyanocobalamin (B-12) 500 Mcg Tablet) 1,000 mcg PO DAILY [facility] Stop: 10/08/25 08:59 Last Admin: 09/14/25 08:23 Dose: 1,000 mcg Dextrose (Dextrose 50% 50 Ml Syringe) 25 - 50 ml IV UD PRN; Protocol PRN Reason: Hypoglycemia Protocol Stop: 10/07/25 19:08 Diphenhydramine HCl (Diphenhydramine Capsule 25 Mg Cap) 25 mg PO Q6H PRN PRN Reason: Allergic Rhinitis/Insomnia Stop: 10/12/25 11:37 Famotidine (Famotidine 20 Mg Tab) 20 mg PO Q12H PRN PRN Reason: Dyspepsia Stop: 10/12/25 11:37 Gabapentin (Gabapentin 400 Mg Cap) 400 mg PO QID [facility] Stop: 10/07/25 19:08 Last Admin: 09/14/25 20:48 Dose: 400 mg Glucagon (Glucagon For Inj 1 Mg Vial) 1 mg SQ UD PRN; Protocol PRN Reason: Hypoglycemia Protocol Stop: 10/07/25 19:08 Glucose (Glucose 40% Gel 15 Gm Tube) 15 - 30 gm PO UD PRN; Protocol PRN Reason: Hypoglycemia Protocol Stop: 10/07/25 19:08 Glucose (Glucose 10 Tab/Tube) 4 - 8 tab PO UD PRN; Protocol PRN Reason: Hypoglycemia Protocol Stop: 10/07/25 19:08 Hydromorphone HCl (Hydromorphone Inj 1 Mg/Ml Syringe) 1 mg IV Q3H PRN PRN Reason: SEVERE Pain (7,8,9,10) Stop: 09/26/25 11:37 Promethazine HCl (Phenergan) 12.5 mg in 50.5 mls @ 202 mls/hr IV Q6H PRN PRN Reason: Nausea And Vomiting Stop: 10/12/25 11:37 Cefazolin Sodium (Ancef 1000mg) 1,000 mg in 7.5 mls @ 2.5 mls/min IV Q12H [facility] Stop: 09/15/25 08:03 Last Admin: 09/14/25 20:55 Dose: 2.5 mls/min Influenza Virus Vaccine Quadrival (Do Not Administer Flu Vaccine) 1 each N/A PRN PRN PRN Reason: Notification Stop: 10/12/25 11:37 Insulin Aspart (Insulin Aspart Per Unit Charge) 0 units SC ACHS FREDI Stop: 10/12/25 12:14 Last Admin: 09/14/25 20:32 Dose: Not Given Labetalol HCl (Labetalol Hcl Iv 5 Mg/Ml 20ml) 10 mg IV Q4H PRN PRN Reason: Hypertension Stop: 10/07/25 19:08 Lactic Acid (Ammonium Lactate 12% Lotion 225 Gm Btl) 1 gm EXT DAILY FREDI Stop: 10/08/25 08:59 Last Admin: 09/14/25 08:24 Dose: 1 gm Lorazepam (Lorazepam 0.5 Mg Tab) 0.5 mg PO Q8H PRN PRN Reason: Sedation/Anxiety Stop: 10/12/25 11:37 Magnesium Hydroxide (Magnesium Hydroxide Susp 30 Ml Udc) 30 ml PO Q24H PRN PRN Reason: Constipation Stop: 10/12/25 11:37 Melatonin (Melatonin 3 Mg Tab) 3 mg PO HS FREDI Stop: 10/07/25 20:59 Last Admin: 09/14/25 20:49 Dose: 3 mg Methocarbamol (Methocarbamol 500 Mg Tablet) 500 mg PO TID PRN PRN Reason: Muscle Spasm Stop: 10/12/25 11:38 Last Admin: 09/12/25 13:47 Dose: 500 mg Miscellaneous (Carbohydrates For Hypoglycemia ) 15 - 30 gm PO UD PRN PRN Reason: Hypoglycemia Protocol Stop: 10/07/25 19:08 Morphine Sulfate (Morphine Sulfate 2 Mg/Ml Carp) 2 mg IV Q4H PRN PRN Reason: Severe Pain (Scale 7, 8, 9,10) Stop: 09/22/25 11:01 Last Admin: 09/12/25 16:19 Dose: 2 mg Naloxone HCl (Naloxone Hcl 0.4 Mg/1 Ml Vial/Carp) 0.1 mg IV Q5M PRN PRN Reason: Oversedation/Resp depression Stop: 10/12/25 11:37 Nitroglycerin (Nitroglycerin Sl 0.4 Mg/Tab Tab) 0.4 mg SL UD PRN PRN Reason: Chest Pain Stop: 10/07/25 19:08 Ondansetron HCl (Ondansetron Inj 2 Mg/Ml 2 Ml Vial) 4 mg IV Q6H PRN PRN Reason: Nausea &/or Vomiting Stop: 10/12/25 11:37 Ondansetron HCl (Ondansetron 4 Mg Od Tab) 4 mg PO Q6H PRN PRN Reason: Nausea Stop: 10/12/25 11:37 Oxycodone HCl (Oxycodone Hcl Ir 5 Mg Tab (Immediate Release)) 5 - 10 mg PO Q4H PRN PRN Reason: Mod-Sev Pain (Scale 4-10) Stop: 09/25/25 08:29 Last Admin: 09/14/25 20:48 Dose: 10 mg Pantoprazole Sodium (Pantoprazole 40 Mg Tab) 40 mg PO QAM [facility] Stop: 10/08/25 08:59 Last Admin: 09/14/25 08:23 Dose: 40 mg Pneumococcal Polyvalent Vaccine (Do Not Administer Pneumococcal Vaccine) 1 each N/A PRN PRN PRN Reason: Notification Stop: 10/12/25 11:37 Polyethylene Glycol (Polyethylene (Miralax) 17 Gm Pack) 17 gm PO DAILY FREDI Stop: 10/11/25 08:59 Last Admin: 09/14/25 08:31 Dose: Not Given Polyethylene Glycol (Polyethylene (Miralax) 17 Gm Pack) 17 gm PO Q6 FREDI Stop: 10/13/25 05:59 Last Admin: 09/14/25 17:13 Dose: 17 gm Rosuvastatin Calcium (Rosuvastatin Calcium 5 Mg Tab) 5 mg PO QAM [facility] Stop: 10/08/25 08:59 Last Admin: 09/14/25 08:23 Dose: 5 mg Senna/Docusate Sodium (Docusate Sodium/Senna 50/8.6mg Tab) 1 tab PO BID FREDI Stop: 10/11/25 08:59 Last Admin: 09/14/25 20:49 Dose: 1 tab Sodium Biphosphate/Sodium Phosphate (Sod Phosphate/Sod Biphosphate Enema 132 Ml Btl) 132 ml NJ ONE PRN PRN Reason: Constipation Stop: 10/12/25 11:37 Tramadol HCl (Tramadol Hcl 50 Mg Tablet) 50 - 100 mg PO Q4H PRN PRN Reason: MOD/SEV Pain & Pre PT Stop: 10/12/25 11:37 Vitamin D (Cholecalciferol 25 Mcg (1000 Units) Tab) 25 mcg PO DAILY FREDI Stop: 10/08/25 08:59 Last Admin: 09/14/25 08:23 Dose: 25 mcg
[2025-09-15 07:04] LABS: Hematocrit (blood only) 24.6 % (37.0-47.0); Hemoglobin 8.1 g/dL (12.0-16.0); Mean Corpuscular Hemoglobin 31.8 pg (25.0-34.0); Mean Corpuscular Volume 96.5 fL (80.0-100.0); Platelet Count 120 K/uL (130-400); RDW Standard Deviation 54.6 fL (36.4-46.3); Red Blood Count 2.55 M/uL (4.20-5.40); White Blood Count 9.70 K/ul (4.8-10.8)
[2025-09-15 07:31] LABS: Anion Gap 6.0 (3-11); Blood Urea Nitrogen 25.0 mg/dl (6-23); Calcium 8.0 mg/dl (8.6-10.3); Carbon Dioxide 31.0 mmol/L (21-32); Chloride 99.0 mmol/L (98-107); Creatinine Clr Calc Pharmacy 21.4 ml/min; Glucose 172.0 mg/dl (70-99(Fasting)); Potassium 4.6 mmol/L (3.5-5.1); Sodium 136.0 mmol/L (136-145)
[2025-09-15] MEDS: ASPIRIN 81 MG ECTAB PO SCH (08:20)
--- NOTE | 2025-09-15 09:13 | Hospitalist Progress Note ---
Date of Service September 15, 2025 Assessment & Plan (1) Intractable low back pain: (2) Multilevel lumbosacral spondylosis with radiculopathy: (3) Acute blood loss anemia: (4) Hypertensive urgency: (5) Acute kidney injury superimposed on CKD: (6) Renal mass: (7) Diabetes mellitus: (8) Gout: (9) Anxiety: (10) CAD (coronary artery disease): Plan Patient is an 89-year-old female with past medical history significant for type 2 diabetes, dyslipidemia, gout, hypercholesterolemia, uncomplicated asthma, hypertension, CAD s/p stenting, GERD, CKD stage IV, degenerative disc disease, anemia of chronic renal failure, history of squamous cell carcinoma and depression with anxiety who presented to the ED on 09/07/25 with c/o intractable low back pain with radiation down the LLE and was found to have multilevel lumbar spondylosis and underwent surgery. Intractable low back pain Multilevel lumbar spondylosis with radiculopathy s/p surgery Patient presenting with intractable low back pain with radiculopathy unresponsive to steroids and epidural injections outpatient Admitting lumbar spine CT revealed severe disc space narrowing and partial bony fusion at L2-L3, severe disc space narrowing seen at L1-L2 with endplate sclerosis, moderate to severe disc space narrowing noted at L3-L4, mild central canal stenosis at L2-L3, left posterolateral disc extrusion is suggested at L4- L5 causing significant central canal stenosis, bilateral neural foraminal narrowing at L4-L5 Admitting lumbar spine MRI revealed multilevel degenerative changes yielding marked spinal canal and foraminal stenoses, facet arthropathy changes and joint effusions with additional likely interspinous bursitis L4-L5 POD#3 L4-S1 decompression and fusion by Dr. De Dios on 09/12/2025 Pain control with scheduled tylenol, methocarbamol PRN, tramadol PRN -> dc oxy due to drowsiness after admin this am PT/OT recommending rehab Denied for [facility], bed available at [facility] tomorrow Acute blood loss anemia Preop Hgb 12 dropped to 7.6 postoperatively EBL 450cc and BRIAN drain output 495cc on 09/13 s/p 1U PRBCs on 09/13 Hgb 8.2 this am IV venofer x1 today Transfuse <8.0 given history of cardiac stenting HTN urgency-> resolved On admission likely secondary to back pain Improved s/p IV labetalol Continue amlodipine and losartan Incidental imaging findings 1. Significantly asymmetric soft tissue density w/in the right breast as compared to the left noted on CTAP -Recommend nonemergent mammography vs breast US on OP basis. -Pt with history of dense breast tissue. No prior abnormal mammograms or breast US findings per pt. 2. 1.9 cm indeterminate and possibly enhancing lesion in the lower pole of the left kidney noted on CTAP -Noted as possible hemorrhagic cyst on lumbar spine MRI. 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 -Urology recommends repeat CTAP renal mass protocol in 3-6 months SEBASTIAN -> resolved CKD stage IV Baseline creatinine 1.6-2 Cr now back to baseline s/p IVF Avoid nephrotoxic agents as able Monitor renal function DM type II Hold Ozempic BSG ACHS and SSI while inpatient History of CAD s/p stenting (2007) TTE with EF 65-70%, grade I DD, trace AR, mild WV, mild TR and normal RV systolic pressure. Continue baby aspirin and statin GERD Continue PPT Gout Continue allopurinol Depression Continue citalopram DVT Prophylaxis: SCDs/TEDs Code Status: FULL CODE PCP: Taina Queen DO Disposition: anticipate dc to [facility] tomorrow Patient seen in collaboration with Dr. Greene. Please see addendum. I spent a total of 60 minutes coordinating, documenting and providing care for this patient excluding time spent in the performance of separately billed services or time spent by another provider/QHP. Admission and Anticipated Discharge Date Admission Date: September 07, 2025 Supervising Physician Co-Signing Physician Notes Pt seen and examined by me, care coordinated w/ M. Pelon TRIPLETT, pls refer to her note above for further detail. Pt seen sitting up in bed in NAD, awake, alert, answers appropriately, however reports feeling "off" after taking oxycodone today. Denies any fever, chills, chest pain, shortness of breath. Denies abd. pain, n/v. Lungs CTAB. Abdomen soft, nontender. Pt is able to move extremities. Today Cr is 1.8, and She does have hx of CKD. losartan on hold. cont. to monitor Cr, and BP. Hgb now 8.1, previously transfused 1 unit of pRBC. Will provide IV iron today. cont. to closely monitor. Plan to DC to rehab. MD Jc Subjective Patient seen sitting in chair Reports feeling "goofy" after pain medicine Denies back pain or leg symptoms Denies dizziness, chest pain, SOB, abdominal pain, N/V Review of Systems Review of Systems: All systems reviewed & are unremarkable except as noted in HPI & below Physical Exam Physical Exam: General/Psych: WD/WN, sitting up in bed, NAD, drowsy, falling asleep while talking Head: normocephalic, atraumatic Eyes: normal inspection, PERRL, conjunctivae pink ENT: external ear and nose normal, oropharynx normal Neck: normal visual inspection, trachea midline Respiratory: normal respiratory effort, lungs clear to auscultation, no wheeze/rales/rhonchi, no accessory muscle use Cardiovascular: regular rate and rhythm, no murmur/rub/gallop Extremities: no cyanosis or clubbing, normal peripheral pulses, no BLE edema, sensation intact BLE Abdomen/GI: normal bowel sounds, soft, nontender Neurologic/MSK: A+Ox3, motor strength 5/5, moves all extremities Skin: no rashes, normal color, warm and dry, island dressing c/d/i, BRIAN drain with serosanguineous output Results & Data Results & Data Vital Signs (Past 12 Hours) Vital Signs Temp Pulse Resp BP Pulse Ox O2 Del Method 09/15/25 07:26 36.8 C 94 H 16 164/67 H 95 Room Air Laboratory Results Short CBC 09/15/25 Range/Units 06:28 WBC 9.70 (4.8-10.8) K/ul Hgb 8.1 L (12.0-16.0) g/dL Hct 24.6 L (37.0-47.0) % Plt Count 120 L (130-400) K/uL BMP 09/15/25 06:28 Sodium 136 Potassium 4.6 Chloride 99 Carbon Dioxide 31 BUN 25 H Creatinine 1.85 H Glucose 172 H Calcium 8.0 L I have independently reviewed and interpreted patient's labs including CBC and BMP Medications Administered Current Inpatient Medications Acetaminophen (Acetaminophen 325 Mg Tab) 650 mg PO Q4H PRN PRN Reason: Pain 1-3 or Fever Stop: 10/07/25 19:08 Last Admin: 09/14/25 04:50 Dose: 650 mg Acetaminophen (Acetaminophen 500 Mg Tab) 1,000 mg PO Q8H FREDI Stop: 10/12/25 12:59 Last Admin: 09/15/25 12:33 Dose: 1,000 mg Al Hydrox/Mg Hydrox/Simethicone (Aluminum/Magnesium Susp 30 Ml Udc) 30 ml PO Q6H PRN PRN Reason: Dyspepsia Stop: 10/12/25 11:37 Allopurinol (Allopurinol 100 Mg Tab) 100 mg PO QAM FREDI Stop: 10/08/25 08:59 Last Admin: 09/15/25 08:21 Dose: 100 mg Amlodipine Besylate (Amlodipine Besylate 5 Mg Tab) 5 mg PO QPM [facility] Stop: 10/07/25 20:59 Last Admin: 09/14/25 20:48 Dose: 5 mg Artificial Tears (Artificial Tears) 1 drops OP BID PRN PRN Reason: Dry Eyes Stop: 10/07/25 19:19 Aspirin (Aspirin 81 Mg Ectab) 81 mg PO QAM [facility] Stop: 10/15/25 08:59 Last Admin: 09/15/25 08:20 Dose: 81 mg Bisacodyl (Bisacodyl 10 Mg Supp) 10 mg WV DAILY PRN PRN Reason: Constipation Stop: 10/12/25 11:37 Citalopram Hydrobromide (Citalopram 20 Mg Tab) 20 mg PO DAILY [facility] Stop: 10/08/25 08:59 Last Admin: 09/15/25 08:22 Dose: 20 mg Cyanocobalamin (Cyanocobalamin (B-12) 500 Mcg Tablet) 1,000 mcg PO DAILY FREDI Stop: 10/08/25 08:59 Last Admin: 09/15/25 08:20 Dose: 1,000 mcg Dextrose (Dextrose 50% 50 Ml Syringe) 25 - 50 ml IV UD PRN; Protocol PRN Reason: Hypoglycemia Protocol Stop: 10/07/25 19:08 Diphenhydramine HCl (Diphenhydramine Capsule 25 Mg Cap) 25 mg PO Q6H PRN PRN Reason: Allergic Rhinitis/Insomnia Stop: 10/12/25 11:37 Famotidine (Famotidine 20 Mg Tab) 20 mg PO Q12H PRN PRN Reason: Dyspepsia Stop: 10/12/25 11:37 Gabapentin (Gabapentin 400 Mg Cap) 400 mg PO QID FREDI Stop: 10/07/25 19:08 Last Admin: 09/15/25 12:34 Dose: 400 mg Glucagon (Glucagon For Inj 1 Mg Vial) 1 mg SQ UD PRN; Protocol PRN Reason: Hypoglycemia Protocol Stop: 10/07/25 19:08 Glucose (Glucose 40% Gel 15 Gm Tube) 15 - 30 gm PO UD PRN; Protocol PRN Reason: Hypoglycemia Protocol Stop: 10/07/25 19:08 Glucose (Glucose 10 Tab/Tube) 4 - 8 tab PO UD PRN; Protocol PRN Reason: Hypoglycemia Protocol Stop: 10/07/25 19:08 Promethazine HCl (Phenergan) 12.5 mg in 50.5 mls @ 202 mls/hr IV Q6H PRN PRN Reason: Nausea And Vomiting Stop: 10/12/25 11:37 Influenza Virus Vaccine Quadrival (Do Not Administer Flu Vaccine) 1 each N/A PRN PRN PRN Reason: Notification Stop: 10/12/25 11:37 Insulin Aspart (Insulin Aspart Per Unit Charge) 0 units SC ACHS FREDI Stop: 10/12/25 12:14 Last Admin: 09/15/25 12:29 Dose: Not Given Labetalol HCl (Labetalol Hcl Iv 5 Mg/Ml 20ml) 10 mg IV Q4H PRN PRN Reason: Hypertension Stop: 10/07/25 19:08 Lactic Acid (Ammonium Lactate 12% Lotion 225 Gm Btl) 1 gm EXT DAILY FREDI Stop: 10/08/25 08:59 Last Admin: 09/15/25 08:21 Dose: 1 gm Lorazepam (Lorazepam 0.5 Mg Tab) 0.5 mg PO Q8H PRN PRN Reason: Sedation/Anxiety Stop: 10/12/25 11:37 Magnesium Hydroxide (Magnesium Hydroxide Susp 30 Ml Udc) 30 ml PO Q24H PRN PRN Reason: Constipation Stop: 10/12/25 11:37 Melatonin (Melatonin 3 Mg Tab) 3 mg PO HS FREDI Stop: 10/07/25 20:59 Last Admin: 09/14/25 20:49 Dose: 3 mg Methocarbamol (Methocarbamol 500 Mg Tablet) 500 mg PO TID PRN PRN Reason: Muscle Spasm Stop: 10/12/25 11:38 Last Admin: 09/15/25 03:44 Dose: 500 mg Miscellaneous (Carbohydrates For Hypoglycemia ) 15 - 30 gm PO UD PRN PRN Reason: Hypoglycemia Protocol Stop: 10/07/25 19:08 Naloxone HCl (Naloxone Hcl 0.4 Mg/1 Ml Vial/Carp) 0.1 mg IV Q5M PRN PRN Reason: Oversedation/Resp depression Stop: 10/12/25 11:37 Nitroglycerin (Nitroglycerin Sl 0.4 Mg/Tab Tab) 0.4 mg SL UD PRN PRN Reason: Chest Pain Stop: 10/07/25 19:08 Ondansetron HCl (Ondansetron Inj 2 Mg/Ml 2 Ml Vial) 4 mg IV Q6H PRN PRN Reason: Nausea &/or Vomiting Stop: 10/12/25 11:37 Ondansetron HCl (Ondansetron 4 Mg Od Tab) 4 mg PO Q6H PRN PRN Reason: Nausea Stop: 10/12/25 11:37 Pantoprazole Sodium (Pantoprazole 40 Mg Tab) 40 mg PO QAM FREDI Stop: 10/08/25 08:59 Last Admin: 09/15/25 08:21 Dose: 40 mg Pneumococcal Polyvalent Vaccine (Do Not Administer Pneumococcal Vaccine) 1 each N/A PRN PRN PRN Reason: Notification Stop: 10/12/25 11:37 Polyethylene Glycol (Polyethylene (Miralax) 17 Gm Pack) 17 gm PO DAILY FREDI Stop: 10/11/25 08:59 Last Admin: 09/15/25 08:23 Dose: Not Given Polyethylene Glycol (Polyethylene (Miralax) 17 Gm Pack) 17 gm PO Q6 FREDI Stop: 10/13/25 05:59 Last Admin: 09/15/25 12:33 Dose: 17 gm Rosuvastatin Calcium (Rosuvastatin Calcium 5 Mg Tab) 5 mg PO QAM FREDI Stop: 10/08/25 08:59 Last Admin: 09/15/25 08:21 Dose: 5 mg Senna/Docusate Sodium (Docusate Sodium/Senna 50/8.6mg Tab) 1 tab PO BID FREDI Stop: 10/11/25 08:59 Last Admin: 09/15/25 08:20 Dose: 1 tab Sodium Biphosphate/Sodium Phosphate (Sod Phosphate/Sod Biphosphate Enema 132 Ml Btl) 132 ml W[place] ONE PRN PRN Reason: Constipation Stop: 10/12/25 11:37 Tramadol HCl (Tramadol Hcl 50 Mg Tablet) 50 - 100 mg PO Q4H PRN PRN Reason: MOD/SEV Pain & Pre PT Stop: 10/12/25 11:37 Vitamin D (Cholecalciferol 25 Mcg (1000 Units) Tab) 25 mcg PO DAILY FREDI Stop: 10/08/25 08:59 Last Admin: 09/15/25 08:21 Dose: 25 mcg
[2025-09-15] MEDS: IRON SUCROSE 200 MG in SODIUM CHLORIDE 0.9% 100 ML IV ONE (09:44)
--- NOTE | 2025-09-15 10:08 | Orthopedic Progress Note ---
Date of Service September 15, 2025 Assessment & Plan (1) Lumbar spinal stenosis: Plan: At this time I will discontinue IV morphine. Will continue with physical therapy. Plan for discharge to rehab tomorrow. Admission and Anticipated Discharge Date Admission Date: September 07, 2025 Subjective Patient's pain is improved. She is somewhat lethargic today. Physical Exam Physical Exam: Patient is in the chair at the bedside. She is working with therapy. She is neurologically intact. Results & Data Vital Signs (Past 12 Hours) Vital Signs Temp Pulse Resp BP Pulse Ox O2 Del Method 09/15/25 07:26 36.8 C 94 H 16 164/67 H 95 Room Air (1) Lumbar spinal stenosis Neurogenic claudication status: unspecified Qualified Code(s): M48.061 - Spinal stenosis, lumbar region without neurogenic claudication
[2025-09-16 07:25] LABS: Hematocrit (blood only) 24.2 % (37.0-47.0); Hemoglobin 8.0 g/dL (12.0-16.0); Mean Corpuscular Hemoglobin 32.3 pg (25.0-34.0); Mean Corpuscular Volume 97.6 fL (80.0-100.0); Platelet Count 149 K/uL (130-400); RDW Standard Deviation 53.4 fL (36.4-46.3); Red Blood Count 2.48 M/uL (4.20-5.40); White Blood Count 8.85 K/ul (4.8-10.8)
[2025-09-16] MEDS ORDERED: SODIUM CHLORIDE 0.9% 100 ML IV PRN (07:35)
[2025-09-16 07:50] LABS: Anion Gap 4.0 (3-11); Blood Urea Nitrogen 23.0 mg/dl (6-23); Calcium 8.2 mg/dl (8.6-10.3); Carbon Dioxide 33.0 mmol/L (21-32); Chloride 98.0 mmol/L (98-107); Creatinine Clr Calc Pharmacy 23.7 ml/min; Glucose 193.0 mg/dl (70-99(Fasting)); Magnesium 2.0 mg/dl (1.7-2.4); Potassium 4.5 mmol/L (3.5-5.1); Sodium 135.0 mmol/L (136-145)
[2025-09-16] MEDS: LOSARTAN POTASSIUM 50 MG TAB PO SCH (10:31)
--- NOTE | 2025-09-16 11:44 | Orthopedic Progress Note ---
Date of Service September 16, 2025 Assessment & Plan (1) Two-level lumbosacral spondylosis with radiculopathy: Plan: At this time we will continue physical therapy and plan for discharge to SNF when bed available. Admission and Anticipated Discharge Date Admission Date: September 07, 2025 Subjective Patient's back pain is controlled leg symptoms are steadily improving. She is tolerating physical therapy. Physical Exam Physical Exam: On exam patient is up and ambulating with her walker. She has good posture. Good strength testing. Results & Data Vital Signs (Past 12 Hours) Vital Signs Temp Pulse Pulse Resp BP BP Pulse Ox 09/16/25 11:30 37 C 78 16 130/71 96 09/16/25 11:00 36.9 C 77 16 138/69 95 09/16/25 10:45 36.9 C 80 16 132/69 95 09/16/25 10:22 37.1 C 81 16 145/72 H 95 09/16/25 07:27 36.8 C 82 16 145/70 H 96 O2 Del Method 09/16/25 11:30 09/16/25 11:00 09/16/25 10:45 09/16/25 10:22 09/16/25 07:27 Room Air Queries Orthopedic Spine Acute Posthemorrhagic Anemia: Yes
[2025-09-16 12:38] VITALS: TEMP 98.2
--- NOTE | 2025-09-16 12:59 | Discharge Summary ---
Discharge Summary Date of Service September 16, 2025 Principal Dx & Hospital Course #1 = Principal Diagnosis (1) Intractable low back pain: (2) Multilevel lumbosacral spondylosis with radiculopathy: (3) Acute blood loss anemia: (4) Hypertensive urgency: (5) Acute kidney injury superimposed on CKD: (6) Renal mass: (7) Diabetes mellitus: (8) Gout: (9) Anxiety: (10) CAD (coronary artery disease): Plan Patient is an 89-year-old female with past medical history significant for type 2 diabetes, dyslipidemia, gout, hypercholesterolemia, uncomplicated asthma, hypertension, CAD s/p stenting, GERD, CKD stage IV, degenerative disc disease, anemia of chronic renal failure, history of squamous cell carcinoma and depression with anxiety who presented to the ED on 09/07/25 with c/o intractable low back pain with radiation down the LLE and was found to have multilevel lumbar spondylosis and underwent surgery. Intractable low back pain Multilevel lumbar spondylosis with radiculopathy s/p surgery Patient presenting with intractable low back pain with radiculopathy unresponsive to steroids and epidural injections outpatient Admitting lumbar spine CT revealed severe disc space narrowing and partial bony fusion at L2-L3, severe disc space narrowing seen at L1-L2 with endplate sclerosis, moderate to severe disc space narrowing noted at L3-L4, mild central canal stenosis at L2-L3, left posterolateral disc extrusion is suggested at L4- L5 causing significant central canal stenosis, bilateral neural foraminal narrowing at L4-L5 Admitting lumbar spine MRI revealed multilevel degenerative changes yielding marked spinal canal and foraminal stenoses, facet arthropathy changes and joint effusions with additional likely interspinous bursitis L4-L5 POD#4 L4-S1 decompression and fusion by Dr. De Dios on 09/12/2025 Pain controlled with scheduled tylenol, methocarbamol PRN, oxycodone PRN -> recommend oxy 2.5mg PRN as patient was very drowsy after 10mg administration on 09/15, no admin since PT/OT recommending rehab DC to [facility] 09/16 Acute blood loss anemia Preop Hgb 12 dropped to 7.6 postoperatively EBL 450cc and BRIAN drain output 495cc on 09/13 s/p 1U PRBCs on 09/13 Hgb 8.0 this am-> s/p 1U PRBCs on 09/16 Recommend repeat labs in 1-2 days to make sure hemoglobin is stable Transfuse <8.0 given history of cardiac stenting HTN urgency-> resolved On admission likely secondary to back pain Improved s/p IV labetalol Continue amlodipine and losartan Incidental imaging findings 1. Significantly asymmetric soft tissue density w/in the right breast as compared to the left noted on CTAP -Recommend nonemergent mammography vs breast US on OP basis. -Pt with history of dense breast tissue. No prior abnormal mammograms or breast US findings per pt. 2. 1.9 cm indeterminate and possibly enhancing lesion in the lower pole of the left kidney noted on CTAP -Noted as possible hemorrhagic cyst on lumbar spine MRI. 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 -Urology recommends repeat CTAP renal mass protocol in 3-6 months SEBASTIAN -> resolved CKD stage IV Baseline creatinine 1.6-2 Cr now back to baseline s/p IVF DM type II Continue Ozempic History of CAD s/p stenting (2007) TTE with EF 65-70%, grade I DD, trace AR, mild AR, mild TR and normal RV systolic pressure Euvolemic Continue baby aspirin and statin GERD Continue PPI Gout Continue allopurinol Depression Continue citalopram Patient seen in collaboration with Dr. Greene. Please see addendum. Notes For Next Care Provider 89 year old female with significant PMH who was admitted at [facility] from 09/07- 09/16/2025 for intractable pain pain found to have multilevel lumbosacral spondylosis with radiculopathy who underwent decompression and lumbar fusion with Dr De Dios on 09/12/2025. Post operative course complicated by acute blood loss anemia. S/p 2 units PRBCs during admission. 1 unit given today due to hemoglobin of 8.0 and history of cardiac stent. Recommend repeat labs in 1-2 days to ensure hemoglobin is stable. Medication Changes From Visit methocarbamol PRN, oxycodone PRN Admission HPI Per Admitting Provider 89-year-old female with past medical history significant for type 2 diabetes, dyslipidemia, gout, hypercholesterolemia, uncomplicated asthma, hypertension, CAD status post stent, GERD, CKD stage IV, degenerative disc disease, anemia of chronic renal failure, history of squamous cell carcinoma, depression with anxiety, generalized anxiety disorder comes because of severe back pain. Patient states having back pain for several months. But last 1 week it has got progressively worsened. It is in the lower back radiating to the left leg up to the foot. She is currently using walker to ambulate. She always has urinary incontinence and uses diapers. No bowel incontinence. Uses stool softeners. Denies any fevers. No abdominal pain. No hematuria. No blood in the stools. No chest pain or shortness of breath. No cough. No headache currently. No runny nose or sore throat. Appetite is okay. Recently her PCP started prednisone and initially seem to help but the pain got worse again which prompted her to come to the ER today. There is a plan also for MRI in near future. Blood pressure is running high in the ER. Patient states she did not take her morning medications. Daughter is in the room. Patient lives with her son. Past medical history. As mentioned above. Past surgical history. Bilateral carpal tunnel surgery. Exploratory laparotomy. Left breast punch biopsy. Injection lumbosacral spine. Injection of the cervical spine. Cardiac cath BONILLA to LAD. Lasering of secondary cataract. Bilateral blepharoplasty. Punch biopsy of the skin. Bilateral cataract extraction. Right shoulder cuff avulsion repair. Total abdominal hysterectomy with removal of tubes. Social history. . Quit smoking 1975. Smoked 1.5 packs a day for 20 years. Alcohol occasional glass of wine during holidays. No drug use. Admission Exam Per Admitting Provider General- Not in distress Head- atraumatic Eyes- PERRL. ENT- oropharynx clear Neck- supple, no JVD. Lungs- clear to auscultation no wheezing or crackles Heart- regular rhythm; no murmur, no gallop. Abdomen- normal bowel sounds, soft, nontender, no distension Extremities- no pretibial edema, no erythema Neuro- alert, oriented PERRL, no facial palsy; no dysarthria; moves extremities Musculoskeletal Left leg straight leg test positive. Discharge Exam General/Psych: WD/WN, sitting up in bed, NAD, conversing easily Head: normocephalic, atraumatic Eyes: normal inspection, PERRL, conjunctivae pink ENT: external ear and nose normal, oropharynx normal Neck: normal visual inspection, trachea midline Respiratory: normal respiratory effort, lungs clear to auscultation, no wheeze/rales/rhonchi, no accessory muscle use Cardiovascular: regular rate and rhythm, no murmur/rub/gallop Extremities: no cyanosis or clubbing, normal peripheral pulses, no BLE edema, sensation intact BLE Abdomen/GI: normal bowel sounds, soft, nontender Neurologic/MSK: A+Ox3, motor strength 5/5, moves all extremities Skin: no rashes, normal color, warm and dry, island dressing c/d/i Updated Medication List Medication Instructions Recorded Confirmed Type aspirin 81 mg tablet,delayed 81 mg PO DAILY 09/07/21 09/07/25 History release cholecalciferol (vitamin D3) 25 25 mcg PO DAILY 09/07/21 09/07/25 History mcg (1,000 unit) capsule citalopram 20 mg tablet (Celexa) 20 mg PO DAILY 09/07/21 09/07/25 History losartan 100 mg tablet 100 mg PO DAILY 09/07/21 09/07/25 History acetaminophen 500 mg tablet 1,000 mg PO Q6H PRN PAIN/FEVER 09/07/25 09/07/25 History (Tylenol Extra Strength) allopurinol 100 mg tablet 100 mg PO QAM 09/07/25 09/07/25 History amlodipine 5 mg tablet 5 mg PO QPM 09/07/25 09/07/25 History ammonium lactate 12 % topical cream 1 applic topical DAILY 09/07/25 09/07/25 History cyanocobalamin (vitamin B-12) 1,000 mcg PO DAILY 09/07/25 09/07/25 History 1,000 mcg tablet (Vitamin B-12) docusate sodium 100 mg capsule 100 mg PO HS 09/07/25 09/07/25 History gabapentin 400 mg capsule 400 mg PO QID 09/07/25 09/07/25 History melatonin 3 mg disintegrating 3 mg PO HS 09/07/25 09/07/25 History tablet nitroglycerin 0.4 mg sublingual 0.4 mg sublingual DIRECTED PRN 09/07/25 09/07/25 History tablet (Nitrostat) Chest Pain omega-3 fatty acids 1,000 mg 1,000 mg PO DAILY 09/07/25 09/07/25 History capsule omeprazole 20 mg capsule,delayed 20 mg PO QAM 09/07/25 09/07/25 History release polyvinyl alcohol-povidone (PF) 1 drp OPB DIRECTED PRN Dry Eyes 09/07/25 09/07/25 History 1.4 %-0.6 % eye drops in a dropperette (Refresh Classic (PF)) prednisone 10 mg tablet 10 mg PO DIRECTED 09/07/25 09/07/25 History rosuvastatin 5 mg tablet 5 mg PO QAM 09/07/25 09/07/25 History semaglutide 1 mg/dose (4 mg/3 mL) 1 mg subcut WK 09/07/25 09/07/25 History subcutaneous pen injector (Ozempic) methocarbamol 500 mg tablet 500 mg PO TID PRN spasms #1 tab 09/16/25 Rx oxycodone 5 mg tablet 2.5 mg (1/2 x 5 mg) PO Q6 PRN #0 09/16/25 Rx tabs Hospital Stay Data Consultations 09/07/25 15:10 ED Decision to Admit Stat 09/08/25 08:00 Consult Orthopedic Spine Surgery Routine Consult Urology Routine 09/08/25 09:32 Consult Anesthesiology Routine Procedures Performed Operation Date: 09/12/25 07:45 Actual Procedures p L4-S1 Decompression and Fusion(Not Applicable) - Ho De Dios, Diagnostic Imagining Performed Abdomen/Pelvis CT 09/07/25 11:19 CT SCAN OF THE ABDOMEN AND PELVIS WITH IV CONTRAST; CT SCAN OF THE LUMBAR SPINE WITH IV CONTRAST CLINICAL HISTORY: Generalized abdominal pain. Low back pain. COMPARISON STUDY: No priors TECHNIQUE: Following the IV administration of 94 cc of Optiray 320, CT scan of the abdomen and pelvis is performed from the lung bases to the proximal femora. Additionally, CT scan of the lumbar spine is performed from the lower thoracic spine to sacrum. Images for both examinations are reviewed in the axial, sagittal, and coronal planes. IV contrast was administered without complication. A dose lowering technique was utilized adhering to the principles of ALARA. CT DOSE: 1205.13 mGy.cm FINDINGS: Lung bases: The heart is normal in size and without pericardial effusion. There is bibasilar scarring/atelectasis. No airspace consolidation typical for pneumonia or pleural effusion is identified. A small hiatal hernia is noted. There is severe asymmetric soft tissue density within the right breast as compared to the left. Liver: The contrast-enhanced liver is normal in size, contour, and attenuation. There is no intrahepatic biliary ductal dilatation. The hepatic veins and portal veins are patent. Gallbladder: Small gallstones are suspected. The gallbladder is distended but otherwise normal as imaged. Spleen: Normal in size and attenuation. Pancreas: Unremarkable. Adrenal glands: Unremarkable. Kidneys: The contrast enhanced kidneys are normal in size and without hydronephrosis. The kidneys enhance symmetrically. There is a 1.9 cm in determinant and possibly enhancing lesion is seen in the lower pole of left kidney on image #129. Scattered renal cysts measure up to 2.4 cm. Additional subcentimeter cortical hypodensities also likely represent cysts but are too small for definitive characterization. Abdominal vasculature: There is moderate to advanced atherosclerotic calcification and mild ectasia of the abdominal aorta. Bowel: There is advanced colonic diverticulosis without CT evidence of acute diverticulitis. No bowel obstruction is seen. Xhrt-[id number] fecal retention is noted throughout the colon. A segment of small bowel is contained within an umbilical hernia. The appendix is normal as visualized. Peritoneum: There is no intraperitoneal free air or abdominal ascites. There is a fat and bowel containing umbilical hernia. There is also a fat-containing supraumbilical hernia seen on image #179. Lymphadenopathy: None. Pelvic viscera: The bladder is normal as visualized. The uterus is surgically absent. No adnexal lesion is seen. Skeletal structures: The skeletal structures are osteopenic. See below for discussion of lumbar spine. No lytic or blastic lesions are seen. Degenerative sclerosis is seen within the sacroiliac joints and pubic symphysis. LUMBAR SPINE: Vertebral body height is maintained throughout the lumbar spine. There is minimal anterolisthesis at L4-L5. Alignment is otherwise preserved. Anterior and lateral marginal osteophytes are seen throughout. There is no evidence of fracture or malalignment. The transverse and spinous processes are intact. There is no spondylolysis. There is severe disc space narrowing and partial bony fusion at L2-L3. Severe disc space narrowing is seen at L1-L2 with endplate sclerosis. Moderate to severe disc space narrowing is noted at L3-L4. Posterior disc osteophyte complexes are noted at all lumbar levels. There is at least mild central canal stenosis at L2-L3. A left posterolateral disc extrusion is suggested at L4-L5. This likely cause significant central canal stenosis. There is also bilateral neural foraminal narrowing at L4-L5. The paraspinous soft tissues are within normal limits. IMPRESSION: 1. No acute infectious or inflammatory findings are identified in the abdomen or pelvis. 2. Advanced colonic diverticulosis without CT evidence of acute diverticulitis. 3. There is a 1.9 cm indeterminate and possibly enhancing lesion in the lower pole of the left kidney. Follow-up with urology is recommended, as a renal neoplasm is to be excluded. 4. An umbilical hernia contains a tiny nonobstructed segment of small bowel. 5. No acute bony abnormality is seen involving the lumbar spine. 6. Suspect a left posterolateral disc extrusion at L4-L5 which likely causes significant central canal stenosis. 7. There is significantly asymmetric soft tissue density within the right breast as compared to the left. This is not well evaluated by CT. Nonemergent mammography is recommended for further evaluation. 8. Additional findings as above. ACT 112: Positive. There are findings on this exam that require communication between the performing entity and the patient following Patient Test Result Information Act ([place] Act 112) guidelines. Electronically signed by: Michael Rock M.D. 09/07/2025 1:32 PM Chest X-Ray 09/07/25 11:19 SINGLE VIEW CHEST CLINICAL HISTORY: Back pain FINDINGS: 2 AP, portable, upright chest radiographs are obtained. No prior studies are available for comparison at the time of dictation. The heart is enlarged noting atherosclerotic calcification of the thoracic aorta. The pulmonary vasculature is noncongested. There is bibasilar scarring/atelectasis. No airspace consolidation or large pleural effusion is identified. No pneumothorax is seen. The skeletal structures are osteopenic. The bony thorax is grossly intact. Arthritic change is seen in the shoulders. IMPRESSION: Cardiomegaly with no acute cardiopulmonary abnormality identified. ACT 112: Negative or not required by law. Electronically signed by: Michael Rock M.D. 09/07/2025 11:[address] 09/07/25 11:19 CT SCAN OF THE ABDOMEN AND PELVIS WITH IV CONTRAST; CT SCAN OF THE LUMBAR SPINE WITH IV CONTRAST CLINICAL HISTORY: Generalized abdominal pain. Low back pain. COMPARISON STUDY: No priors TECHNIQUE: Following the IV administration of 94 cc of Optiray 320, CT scan of the abdomen and pelvis is performed from the lung bases to the proximal femora. Additionally, CT scan of the lumbar spine is performed from the lower thoracic spine to sacrum. Images for both examinations are reviewed in the axial, sagittal, and coronal planes. IV contrast was administered without complication. A dose lowering technique was utilized adhering to the principles of ALARA. CT DOSE: 1205.13 mGy.cm FINDINGS: Lung bases: The heart is normal in size and without pericardial effusion. There is bibasilar scarring/atelectasis. No airspace consolidation typical for pneumonia or pleural effusion is identified. A small hiatal hernia is noted. There is severe asymmetric soft tissue density within the right breast as compared to the left. Liver: The contrast-enhanced liver is normal in size, contour, and attenuation. There is no intrahepatic biliary ductal dilatation. The hepatic veins and portal veins are patent. Gallbladder: Small gallstones are suspected. The gallbladder is distended but otherwise normal as imaged. Spleen: Normal in size and attenuation. Pancreas: Unremarkable. Adrenal glands: Unremarkable. Kidneys: The contrast enhanced kidneys are normal in size and without hydronephrosis. The kidneys enhance symmetrically. There is a 1.9 cm indeterminant and possibly enhancing lesion is seen in the lower pole of left kidney on image #129. Scattered renal cysts measure up to 2.4 cm. Additional subcentimeter cortical hypodensities also likely represent cysts but are too small for definitive characterization. Abdominal vasculature: There is moderate to advanced atherosclerotic calcification and mild ectasia of the abdominal aorta. Bowel: There is advanced colonic diverticulosis without CT evidence of acute diverticulitis. No bowel obstruction is seen. Uxye-za-nittrlyk fecal retention is noted throughout the colon. A segment of small bowel is contained within an umbilical hernia. The appendix is normal as visualized. Peritoneum: There is no intraperitoneal free air or abdominal ascites. There is a fat and bowel containing umbilical hernia. There is also a fat-containing supraumbilical hernia seen on image #179. Lymphadenopathy: None. Pelvic viscera: The bladder is normal as visualized. The uterus is surgically absent. No adnexal lesion is seen. Skeletal structures: The skeletal structures are osteopenic. See below for discussion of lumbar spine. No lytic or blastic lesions are seen. Degenerative sclerosis is seen within the sacroiliac joints and pubic symphysis. LUMBAR SPINE: Vertebral body height is maintained throughout the lumbar spine. There is minimal anterolisthesis at L4-L5. Alignment is otherwise preserved. Anterior and lateral marginal osteophytes are seen throughout. There is no evidence of fracture or malalignment. The transverse and spinous processes are intact. There is no spondylolysis. There is severe disc space narrowing and partial bony fusion at L2-L3. Severe disc space narrowing is seen at L1-L2 with endplate sclerosis. Moderate to severe disc space narrowing is noted at L3-L4. Posterior disc osteophyte complexes are noted at all lumbar levels. There is at least mild central canal stenosis at L2-L3. A left posterolateral disc extrusion is suggested at L4-L5. This likely cause significant central canal stenosis. There is also bilateral neural foraminal narrowing at L4-L5. The paraspinous soft tissues are within normal limits. IMPRESSION: 1. No acute infectious or inflammatory findings are identified in the abdomen or pelvis. 2. Advanced colonic diverticulosis without CT evidence of acute diverticulitis. 3. There is a 1.9 cm indeterminate and possibly enhancing lesion in the lower pole of the left kidney. Follow-up with urology is recommended, as a renal neoplasm is to be excluded. 4. An umbilical hernia contains a tiny nonobstructed segment of small bowel. 5. No acute bony abnormality is seen involving the lumbar spine. 6. Suspect a left posterolateral disc extrusion at L4-L5 which likely causes significant central canal stenosis. 7. There is significantly asymmetric soft tissue density within the right breast as compared to the left. This is not well evaluated by CT. Nonemergent mammography is recommended for further evaluation. 8. Additional findings as above. ACT 112: Positive. There are findings on this exam that require communication between the performing entity and the patient following Patient Test Result Information Act ([place] Act 112) guidelines. Electronically signed by: Michael Rock M.D. 09/07/2025 1:32 PM Lumbar Spine MRI 09/07/25 16:12 Exam: Member lumbar spine without contrast. History: Low back pain with bilateral leg pain and numbness. Comparison:None. Technique: Routine multiplanar multisequence MR images of the lumbar spine without intravenous contrast were obtained and reviewed. Findings: Note is made that the lowest fully formed intervertebral disc will be labeled L5-S1 for purposes of this dictation. Marrow signal demonstrates no appreciated occult fracture or edema. Mild stepwise retrolisthesis upper lumbar spine. Mild anterolisthesis L4 and L5. Multilevel disc desiccation with endplate osteophytes. Height loss is noted. Likely acquired fusion changes anterior lateral left L2-L3 vertebral bodies. Conus terminates at the L1 level with normal signal and caliber. Axial series demonstrates [id number]: L1-L2 level demonstrates mild circumferential disc osteophyte complexes. No significant spinal canal or foraminal narrowing. L2-L3 level demonstrates circumferential disc osteophyte complex with mild uncovering of the intervertebral disc. Ligamentum flavum thickening and facet arthropathy changes. Mild to moderate spinal canal narrowing. Mild foraminal narrowing. L3-L4 level demonstrates abundant facet arthropathy changes and ligamentum flavum thickening. Effacement of the thecal sac CSF with moderate spinal canal narrowing. Mild uncovering of the intervertebral disc. Moderate to marked right and moderate left foraminal narrowing. L4-L5 level demonstrates ligamentum flavum thickening and facet arthropathy changes. At least moderate bilateral facet joint effusions. Moderate spinal canal stenosis. Central disc protrusion with superior extrusion is noted. Marked left and moderate right foraminal stenoses. Crowding of the posterior spinous processes with increased fluid-sensitive signal along the interspinous bursa. L5-S1 level demonstrates bilateral facet joint fluid. Circumferential disc and mild ligamentum flavum thickening yielding mild to moderate spinal canal narrowing. Moderate bilateral foraminal stenoses. Include retroperitoneal structures demonstrate likely benign left renal cysts. Additional likely hemorrhagic cyst posterior left kidney. Paraspinous musculature demonstrates mild diffuse fatty infiltration. Impression: 1. Multilevel degenerative changes yielding marked spinal canal and foraminal stenoses as described above. Facet arthropathy changes and joint effusions with additional likely interspinous bursitis L4-L5. Please see above for details. Plain film correlate would be helpful. 2. Likely hemorrhagic cyst left kidney. Ultrasound would be helpful for further characterization if indicated. Electronically signed by Matthew Mireles 09-07-2025 7:21 PM Lumbar Spine X-Ray 09/12/25 07:45 FL lumbar spine 2-3V CLINICAL HISTORY: L4-S1 DECOMPRESSION/FUSION COMPARISON STUDY: None FLUOROSCOPY TIME: 18 seconds FLUOROSCOPY IMAGES: 2 EXPOSURE DOSE: 21 mGy FINDINGS: Fluoroscopy was provided for lower lumbar fusion. IMPRESSION: Intraoperative fluoroscopy. ACT 112: Negative or not required by law. Electronically signed by: John Washington M.D. 09/12/2025 10:07 AM Pending Results Patient Have Any Pending Studies at Discharge: No Discharge Instructions Given to Patient (Per Discharging Provider) You presented to the hospital with low back pain and leg tingling. You had a CT scan and MRI of your low back which showed degenerative changes in multiple vertebrae in your lower spine. You underwent a lumbar spinal fusion with Dr. De Dios on 09/12/2025. You have been recovering well, but are still very weak, and need a short term rehab stay to build your strength back up before you can return home. You are being discharged to [facility] for rehab. After surgery, your blood counts dropped, which is a common complication after the type of surgery you had. Because you have a cardiac stent, we have a lower threshold to give you a blood transfusion. Therefore, you got two blood transfusions during your stay when your hemoglobin was 7.6 and 8.0 respectively. You will need to have your labs checked at [facility] to make sure your hemoglobin is stable after the blood transfusion you received today. The CT scan of your abdomen and pelvis noted an asymmetric soft tissue density in your right breast. We recommend your PCP orders a breast ultrasound or mammogram to follow up on this. The scan also noted a lesion in your left kidney that could be something benign like a cyst or less likely cancerous. You were evaluated by a Urologist for this who recommends you get another CT scan in 3-6 months to further evaluate this lesion. ACTIVITY RECOMMENDATIONS: SELF CARE INSTRUCTIONS AFTER THORACIC/LUMBAR FUSIONS 1. You may walk to your tolerance. It is good exercise for your legs and back. Expect some back and intermittent leg aches and pains. 2. You may perform "counter-top" level activities (make a sandwich, ta with a project, etc.). 3. No bending or lifting of more than 10 pounds or back twisting of any nature (roll like a log when turning in bed). 4. You may ride in a car for 20-30 minutes at a time. No driving until after your first visit with your doctor. 5. Frequent changes of position and restricting sitting to 30 minutes at a time will help limit the amount of back spasms and stiffness you may experience. 6. You may discontinue the use of ambulatory aids (cane, crutches, etc.) once your strength and confidence allow. 7. You may carpet winder the shower and let water strike your incision when you arrive home at least once daily. Do not take a tub bath, sit in a hot tub or go into a swimming pool until after your first recheck in the office. 8. You may resume previous diet. SPECIAL CARE INSTRUCTIONS: VERY IMPORTANT TO READ AND REVIEW A. Your surgical incision has been closed with a cosmetic suture under the skin that will dissolve in about 6 weeks. In 14 days, you can use a pair of clean scissors and cut the suture that is left outside of the skin at the ends of your incision. 1. The small skin tapes can be removed 7 days after surgery if they have not fallen off by that point. 2. You may keep the wound open to air as much as possible to promote healing after post-op day number 5 unless told otherwise by your doctor. 3. If you think the wound looks like it is becoming infected (redness or worsening drainage) and/or you are experiencing fever, chill or worsening back pain and muscle spasms, contact the office so that we may evaluate you as soon as possible. B. Complications are uncommon, but please contact us if you have any signs or symptoms of: 1. wound infection (fever higher than 102.5 degrees F, redness, separation of wound, drainage, or increasing pain from the incision) 2. blood clots in legs (pain, swelling, redness and warmth in legs) 3. urinary tract infection (fever higher than 102.5 degrees F, burning upon urination or increased frequency of urination) 4. nerve problems (inability to walk on your toes or heels, numbness, loss of bowel or bladder control) 5. any other symptoms that concern you C. Please call the office at if you have any concerns or questions about your operation or recovery. D. No smoking! Smoking drastically decreases the chance of a solid fusion. E. Do not take any anti-inflammatory medications (Indocin, Advil, Motrin, Aspirin, Naprosyn, etc.) as these may inhibit the chance of a solid fusion. Tylenol is okay to take for pain. MANAGING PAIN AFTER SPINAL SURGERY 1. Narcotic medication is intended for short-term use and will be provided for surgical pain. Surgical pain usually lasts for a period of 4-6 weeks. Narcotic medication includes Percocet, Vicodin, Darvocet, Tylenol #3 or Lortab. 2. Longer-term pain is more appropriately treated with non-narcotic medication such as Tylenol ES. 3. Muscle spasm is not appropriately treated with narcotics. Muscle relaxers such as Soma, Flexeril or Skelaxin can be used along with Tylenol ES. 4. Remember that we all live with some "aches and pains". This is not unusual or uncommon after an injury or as we get older. a. Back pain is expected and may include muscle spasms for 4 to 6 weeks after surgery. The pain should gradually improve. If the pain worsens for no apparent reason, please contact the office. b. Intermittent leg pain may also be experienced and should not be concerned about unless it worsens for no apparent reason. If so, please contact the office. 5. We will provide appropriate medication within the normal guidelines of their prescribed use. We will also be very cautious and aware of potential abuse and extended duration of patients' medication needs. a. Pain medications are for your comfort and to assist with sleep and rest so that the tissue can heal. They are not provided in order to return to normal activity and should not be used through the day. To do so or worsening pain at night can result from ongoing tissue damage and development of tolerance to the prescribed medicine. 6. Please allow 2-3 days to process refills. Prescriptions will not be mailed but must be picked up at the office. FOLLOW UP VISIT: Keep your scheduled follow-up appointment. Any questions, please call the office at . Total Time Total Time Spent Total Time Spent (In Minutes): I spent a total of 35 minutes coordinating, documenting and providing care for this patient excluding time spent in the performance of separately billed services or time spent by another provider/QHP. Supervising Physician Co-Signing Physician Notes Pt seen and examined by me, care coordinated w/ M. Pelon TRIPLETT, pls refer to her note above for further detail. Pt seen sitting up in chair in NAD, awake, alert, answers appropriately, reports feeling well. Denies any fever, chills, chest pain, shortness of breath. Denies abd. pain, n/v. Lungs CTAB. Abdomen soft, nontender. Pt is able to move extremities. Today Cr is 1.7, and She does have hx of CKD. Current Hgb 8.0, stable from yesterday Hgb 8.1, previously transfused 1 unit of pRBC, yesterday gave IV iron. Will give 1 unit of pRBC prior to DC to center care. Pt was denied [facility], (P2P called yesterday by Ashok Bird). MD Jc
[2025-09-16 13:17] VITALS: BP 145/70; PULSE 79; RESP 18; O2SAT 97
== END 2025-09-16 16:50 | DRG 427 ==
LOC: ED 09:57 → SUATTDRO 16:12 → 2N 16:12 → 3N 09-08 22:01